=== PATIENT | male | born 1965 | race Caucasian/White ===

== ENCOUNTER 2016-09-09 18:14 | Emergency (ER) | payer MEDICARE, OTHER ==
[2016-09-09] MEDS ORDERED: SODIUM CHLORIDE 0.9% 1,000 ML IV ONE (18:28)
[2016-09-09] MEDS ORDERED: INSULIN LISPRO (humaLOG) 300 UNIT/3 ML VIAL SQ ONE ×2 (18:32→19:33)
[2016-09-09 18:35] LABS: Glucose,Whole Blood 424 mg/dL (75-99)
[2016-09-09 18:52] LABS: Appearance,Urine Clear (Clear); Basophils # (A) 0.1 k/uL (0-0.2); Basophils % (A) 1 %; Bilirubin,Urine Negative (Negative); CH 29.4; CHCM 34.7; Eosinophils # (A) 0.1 k/uL (0-0.7); Eosinophils % (A) 1 %; Glucose,Urine (UA) 4+ (Negative); HCT 48.2 % (39.0-53.0); HDW 2.49; HGB 16.4 gm/dL (13.0-17.5); Ketones,Urine Negative (Negative); Leukocyte Esterase,Urine Negative (Negative); Luc # (Auto) 0.25; Luc % (Auto) 2; Lymphocytes # (A) 2.5 k/uL (1.0-4.8); Lymphocytes % (A) 22 %; MCH 28.8 pg (25.0-35.0); MCV 84.8 fL (80.0-100.0); Mean Platelet Volume 7.5; Monocytes # (A) 0.6 k/uL (0-1.0); Monocytes % (A) 5 %; Neutrophils % (A) 69 %; Nitrite,Urine Negative (Negative); Protein,Urine Negative (Negative); RBC 5.69 m/uL (4.30-5.90); RDW 12.4 % (11.5-15.5); Specific Gravity,Urine 1.026 (1.001-1.035); UA Billing (MACRO vs. MICRO) CHEM; Urobilinogen,Urine <2.0 mg/dL (<2.0); WBC 11.5 k/uL (3.8-10.6); WBC (Perox) 10.83
[2016-09-09 19:02] LABS: ALT 37 U/L (21-72); AST 20 U/L (17-59); Alkaline Phosphatase 123 U/L (38-126); Anion Gap 14 mmol/L; Blood Urea Nitrogen 18 mg/dL (9-20); Calcium 9.4 mg/dL (8.4-10.2); Carbon Dioxide 24 mmol/L (22-30); Chloride 97 mmol/L (98-107); Glucose 418 mg/dL (74-99); Non-African American GFR(MDRD) >60 (>60 ml/min/1.73 sqM); Potassium 4.2 mmol/L (3.5-5.1); Sodium 135 mmol/L (137-145); Total Bilirubin 0.4 mg/dL (0.2-1.3); Total Protein 7.3 g/dL (6.3-8.2)
--- NOTE | 2016-09-09 19:05 | ED ---
General Adult HPI - General Chief complaint: Recheck/Abnormal Lab/Rx Stated complaint: diabetes, high BS Time Seen by Provider: 09/09/16 18:24 Source: patient, RN notes reviewed Mode of arrival: ambulatory Limitations: no limitations - History of Present Illness Initial comments: 51-year-old male presents emergency Department with chief complaint of hyperglycemia. Patient states her sugar has bowel it up to 400. Patient states that he recently had a change in his medications in which she is taking metformin twice daily and had glipizide increased. Patient denies any cold like symptoms including cough, chest congestion, fever or chills. Patient states he otherwise feels fine. Denies abdominal pain including nausea, vomiting diarrhea constipation. - Related Data Home Medications Medication Instructions Recorded Confirmed Enalapril [Vasotec] 10 mg PO HS 11/17/14 09/09/16 Gabapentin [Neurontin] 300 mg PO TID 11/17/14 09/09/16 metFORMIN HCL [Glucophage] 500 mg PO TID 11/17/14 09/09/16 Glimepiride [Amaryl] 4 mg PO BID 09/09/16 09/09/16 HYDROcodone/APAP 5-325MG [[place] 1 tab PO Q8H PRN 09/09/16 09/09/16 5-325] OLANZapine/FLUOXETINE HCL [Symbyax 1 cap PO HS 09/09/16 09/09/16 12-50 mg Capsule] Omeprazole 20 mg PO BID 09/09/16 09/09/16 rOPINIRole HCL [Requip] 1 mg PO HS 09/09/16 09/09/16 sitaGLIPtin [Januvia] 50 mg PO DAILY 09/09/16 09/09/16 Allergies Allergy/AdvReac Type Severity Reaction Status Date / Time No Known Allergies Allergy Verified 09/09/16 18:21 Review of Systems ROS Statement: Those systems with pertinent positive or pertinent negative responses have been documented in the HPI. ROS Other: All systems not noted in ROS Statement are negative. Past Medical History Past Medical History: Diabetes Mellitus, Hearing Disorder / Deafness, Osteoarthritis (OA) Additional Past Medical History / Comment(s): KIDNEY STONES History of Any Multi-Drug Resistant Organisms: None Reported Past Surgical History: Tonsillectomy Past Anesthesia/Blood Transfusion Reactions: No Reported Reaction Past Psychological History: Bipolar Smoking Status: Former smoker Past Alcohol Use History: None Reported Additional Past Alcohol Use History / Comment(s): STARTED SMOKING AT AGE 16 QUIT AT AGE 26 SMOKED 1/2 PPD Past Drug Use History: None Reported - Past Family History Mother Family Medical History: Cancer Father Family Medical History: Cancer Additional Family Medical History / Comment(s): LUNG CANCER General Exam Limitations: no limitations General appearance: alert, in no apparent distress Head exam: Present: atraumatic, normocephalic, normal inspection Eye exam: Present: normal appearance, PERRL, EOMI. Absent: scleral icterus, conjunctival injection, periorbital swelling ENT exam: Present: normal exam, normal oropharynx, mucous membranes moist, TM's normal bilaterally, normal external ear exam Neck exam: Present: normal inspection, full ROM. Absent: tenderness, meningismus, lymphadenopathy Respiratory exam: Present: normal lung sounds bilaterally. Absent: respiratory distress, wheezes, rales, rhonchi, stridor Cardiovascular Exam: Present: normal rhythm, tachycardia, normal heart sounds. Absent: systolic murmur, diastolic murmur, rubs, gallop, clicks GI/Abdominal exam: Present: soft, normal bowel sounds. Absent: distended, tenderness, guarding, rebound, rigid Neurological exam: Present: alert, oriented X3, CN II-XII intact Course Vital Signs 09/09/16 09/09/16 18:21 19:09 Temperature 99.2 F Pulse Rate 119 H 99 Respiratory 18 20 Rate Blood Pressure 146/90 159/93 O2 Sat by Pulse 95 96 Oximetry Medical Decision Making - Medical Decision Making 51-year-old male presents emergency department for hyperglycemia. Patient was found to have a glucose of over 400. Patient was given some insulin here in emergency department which brought it down to 300s. Patient is requesting be discharged at this time. Patient does not take his medications and nighttime from a 3-4 hours. Patient was given insulin subcu prior to discharge. Patient checked blood sugar at home. Return parameters discussed. Facial follow-up with primary care physician for further medications for his diabetes. - Lab Data Result diagrams: 09/09/16 18:30 09/09/16 18:30 Lab Results 09/09/16 09/09/16 09/09/16 Range/Units 18:29 18:30 18:30 WBC 11.5 H (3.8-10.6) k/uL RBC 5.69 (4.30-5.90) m/uL Hgb 16.4 (13.0-17.5) gm/dL Hct 48.2 (39.0-53.0) % MCV 84.8 (80.0-100.0) fL MCH 28.8 (25.0-35.0) pg MCHC 34.0 (31.0-37.0) g/dL RDW 12.4 (11.5-15.5) % Plt Count 352 (150-450) k/uL Neutrophils % 69 % Lymphocytes % 22 % Monocytes % 5 % Eosinophils % 1 % Basophils % 1 % Neutrophils # 8.0 H (1.3-7.7) k/uL Lymphocytes # 2.5 (1.0-4.8) k/uL Monocytes # 0.6 (0-1.0) k/uL Eosinophils # 0.1 (0-0.7) k/uL Basophils # 0.1 (0-0.2) k/uL Sodium 135 L (137-145) mmol/L Potassium 4.2 (3.5-5.1) mmol/L Chloride 97 L (98-107) mmol/L Carbon Dioxide 24 (22-30) mmol/L Anion Gap 14 mmol/L BUN 18 (9-20) mg/dL Creatinine 0.90 (0.66-1.25) mg/dL Est GFR (MDRD) Af Amer >60 (>60 ml/min/1.73 sqM) Est GFR (MDRD) Non-Af >60 (>60 ml/min/1.73 sqM) Glucose 418 H (74-99) mg/dL POC Glucose (mg/dL) 424 H (75-99) mg/dL POC Glu Machine Load Clerk ID Rob Soriano Calcium 9.4 (8.4-10.2) mg/dL Total Bilirubin 0.4 (0.2-1.3) mg/dL AST 20 (17-59) U/L ALT 37 (21-72) U/L Alkaline Phosphatase 123 (38-126) U/L Total Protein 7.3 (6.3-8.2) g/dL Albumin 4.2 (3.5-5.0) g/dL Urine Color Urine Appearance (Clear) Urine pH (5.0-8.0) Ur Specific [place] (1.001-1.035) Urine Protein (Negative) Urine Glucose (UA) (Negative) Urine Ketones (Negative) Urine Blood (Negative) Urine Nitrate (Negative) Urine Bilirubin (Negative) Urine Urobilinogen (<2.0) mg/dL Ur Leukocyte Esterase (Negative) Acetone, Qual Negative (Negative) 09/09/16 Range/Units 18:30 WBC (3.8-10.6) k/uL RBC (4.30-5.90) m/uL Hgb (13.0-17.5) gm/dL Hct (39.0-53.0) % MCV (80.0-100.0) fL MCH (25.0-35.0) pg MCHC (31.0-37.0) g/dL RDW (11.5-15.5) % Plt Count (150-450) k/uL Neutrophils % % Lymphocytes % % Monocytes % % Eosinophils % % Basophils % % Neutrophils # (1.3-7.7) k/uL Lymphocytes # (1.0-4.8) k/uL Monocytes # (0-1.0) k/uL Eosinophils # (0-0.7) k/uL Basophils # (0-0.2) k/uL Sodium (137-145) mmol/L Potassium (3.5-5.1) mmol/L Chloride (98-107) mmol/L Carbon Dioxide (22-30) mmol/L Anion Gap mmol/L BUN (9-20) mg/dL Creatinine (0.66-1.25) mg/dL Est GFR (MDRD) Af Amer (>60 ml/min/1.73 sqM) Est GFR (MDRD) Non-Af (>60 ml/min/1.73 sqM) Glucose (74-99) mg/dL POC Glucose (mg/dL) (75-99) mg/dL POC Glu Machine Load Clerk ID Calcium (8.4-10.2) mg/dL Total Bilirubin (0.2-1.3) mg/dL AST (17-59) U/L ALT (21-72) U/L Alkaline Phosphatase (38-126) U/L Total Protein (6.3-8.2) g/dL Albumin (3.5-5.0) g/dL Urine Color Light Yellow Urine Appearance Clear (Clear) Urine pH 5.0 (5.0-8.0) Ur Specific [place] 1.026 (1.001-1.035) Urine Protein Negative (Negative) Urine Glucose (UA) 4+ H (Negative) Urine Ketones Negative (Negative) Urine Blood Negative (Negative) Urine Nitrate Negative (Negative) Urine Bilirubin Negative (Negative) Urine Urobilinogen <2.0 (<2.0) mg/dL Ur Leukocyte Esterase Negative (Negative) Acetone, Qual (Negative) Disposition Clinical Impression: Hyperglycemia, Uncontrolled diabetes mellitus Disposition: HOME SELF-CARE Condition: Stable Instructions: Hyperglycemia, Non-Diabetic (ED) Additional Instructions: Please return to the Emergency Department if symptoms worsen or any other concerns. Time of Disposition: 19:34
[2016-09-09 19:10] VITALS: RESP 20
[2016-09-09 19:35] LABS: Glucose,Whole Blood 316 mg/dL (75-99)
[2016-09-09 19:46] VITALS: BP 148/68; PULSE 98; TEMP 98.3
== END 2016-09-09 19:45 | disposition home or self-care (01) ==
LOC: EC 18:14
DX: E11.65 Type 2 diabetes mellitus with hyperglycemia (principal); Z79.84 Long term (current) use of oral hypoglycemic drugs; Z79.899 Other long term (current) drug therapy; H91.90 Unspecified hearing loss, unspecified ear; Z87.891 Personal history of nicotine dependence
CPT/HCPCS: 36415; 80053; 81003; 82009; 85025; 96374; 99284

== ENCOUNTER 2016-12-08 18:48 | Emergency (ER) | payer MEDICARE, OTHER ==
[2016-12-08 18:54] VITALS: BP 130/84; PULSE 111; RESP 20; TEMP 97.8
[2016-12-08] MEDS ORDERED: DIPH,PERTUS(ACELL)TETVAC-LF 0.5 ML VIAL IM ONE (19:02)
[2016-12-08] MEDS ORDERED: GELATIN SPONGE,ABSORB (SMALL) 1 EACH SPONGE TOPICAL STA (19:02)
--- NOTE | 2016-12-08 19:17 | ED ---
General Adult HPI - General Chief complaint: Wound/Laceration Stated complaint: laceration on left arm Time Seen by Provider: 12/08/16 18:56 Source: patient, RN notes reviewed Mode of arrival: ambulatory Limitations: no limitations - History of Present Illness Initial comments: Patient is a 51-year-old male who presents emergency room today with a chief complaint of laceration to the posterior aspect of the left forearm. He does admit that he was opening a glass window and it broke large piece cut the back of his forearm. Patient states unsure of his tetanus status. He denies any other complaints or symptoms. - Related Data Home Medications Medication Instructions Recorded Confirmed Enalapril [Vasotec] 10 mg PO HS 11/17/14 12/08/16 Gabapentin [Neurontin] 300 mg PO TID 11/17/14 12/08/16 metFORMIN HCL [Glucophage] 500 mg PO TID 11/17/14 12/08/16 Glimepiride [Amaryl] 4 mg PO BID 09/09/16 12/08/16 HYDROcodone/APAP 5-325MG [[place] 1 tab PO Q8H PRN 09/09/16 12/08/16 5-325] OLANZapine/FLUOXETINE HCL [Symbyax 1 cap PO HS 09/09/16 12/08/16 12-50 mg Capsule] Omeprazole 20 mg PO BID 09/09/16 12/08/16 rOPINIRole HCL [Requip] 1 mg PO HS 09/09/16 12/08/16 sitaGLIPtin [Januvia] 50 mg PO DAILY 09/09/16 12/08/16 Previous Rx's Medication Instructions Recorded Cephalexin [Keflex] 500 mg PO Q12HR 7 Days 12/08/16 Mupirocin 2% Oint [Bactroban Oint] 1 applic TOPICAL TID #1 gm 12/08/16 Allergies Allergy/AdvReac Type Severity Reaction Status Date / Time No Known Allergies Allergy Verified 12/08/16 18:54 Review of Systems ROS Statement: Those systems with pertinent positive or pertinent negative responses have been documented in the HPI. ROS Other: All systems not noted in ROS Statement are negative. Past Medical History Past Medical History: Diabetes Mellitus, Hearing Disorder / Deafness, Osteoarthritis (OA) Additional Past Medical History / Comment(s): KIDNEY STONES History of Any Multi-Drug Resistant Organisms: None Reported Past Surgical History: Tonsillectomy Past Anesthesia/Blood Transfusion Reactions: No Reported Reaction Past Psychological History: Bipolar Smoking Status: Former smoker Past Alcohol Use History: None Reported Additional Past Alcohol Use History / Comment(s): STARTED SMOKING AT AGE 16 QUIT AT AGE 26 SMOKED 1/2 PPD Past Drug Use History: None Reported - Past Family History Mother Family Medical History: Cancer Father Family Medical History: Cancer Additional Family Medical History / Comment(s): LUNG CANCER General Exam - General Exam Comments Initial Comments: General: The patient is awake and alert, in no distress, and does not appear acutely ill. Neck: The neck is supple, there is no tenderness or JVD. Cardiovascular: There is a regular rate and rhythm. No murmur, rub or gallop is appreciated. Respiratory: Lungs are clear to auscultation, respirations are non-labored, breath sounds are equal. No wheezes, stridor, rales, or rhonchi. Musculoskeletal: Full range motion. Sensation intact. Pulses equal bilaterally 2+. Strength 5/5. Neurological: A&O x 3. CN II-XII intact, There are no obvious motor or sensory deficits. Coordination appears grossly intact. Speech is normal. Skin: Does have an avulsion type laceration to the posterior aspect of the left forearm measures approximately 2 cm across. There is a superficial flap of skin that is curled up at the edge. Psychiatric: Normal mood and affect. Limitations: no limitations Course Vital Signs 12/08/16 18:52 Temperature 97.8 F Pulse Rate 111 H Respiratory 20 Rate Blood Pressure 130/84 O2 Sat by Pulse 95 Oximetry Procedures - Procedures Initial comment: Patient's wound was cleaned here with saline. The wound is superficial avulsion type laceration. The skin was removed and patient Gelfoam was placed over top control the bleeding. Nonstick dressing was applied by myself with a sterile dressing around. Patient tolerated procedure well. Medical Decision Making - Medical Decision Making Patient is advised to change dressing at least once daily apply topical antibiotic ointment. He'll be started on antibiotics as she is a diabetic. Advised watch for any signs of infection return for any other concerns. His tetanus is been updated here in the emergency room. Disposition Clinical Impression: Laceration Disposition: HOME SELF-CARE Condition: Good Instructions: Laceration (ED) Additional Instructions: Please change dressing at least once daily or as needed. Please use topical antibiotic to the area. Please use antibiotic as prescribed and return here to emergency room if there is any sign of infection or for any other concerns. Prescriptions: Cephalexin [Keflex] 500 mg PO Q12HR 7 Days Mupirocin 2% Oint [Bactroban Oint] 1 applic TOPICAL TID #1 gm Referrals: Oseas Veras MD [Primary Care Provider] - 1-2 days Time of Disposition: 19:16
== END 2016-12-08 19:45 | disposition home or self-care (01) ==
LOC: EC 18:48
DX: S51.812A Laceration without foreign body of left forearm, initial encounter (principal); Z23 Encounter for immunization; E11.9 Type 2 diabetes mellitus without complications; M19.90 Unspecified osteoarthritis, unspecified site; F31.9 Bipolar disorder, unspecified; H91.90 Unspecified hearing loss, unspecified ear; Z87.891 Personal history of nicotine dependence; Z79.84 Long term (current) use of oral hypoglycemic drugs; Z79.899 Other long term (current) drug therapy; W25.XXXA Contact with sharp glass, initial encounter
CPT/HCPCS: 90471; 90715; 99282

== ENCOUNTER → 2017-03-14 | Outpatient (CLI) | payer MEDICARE, OTHER ==
--- NOTE | 2017-03-15 09:12 | XR ---
EXAMINATION TYPE: XR foot complete bilateral DATE OF EXAM: 03/14/2017 COMPARISON: NONE HISTORY: Pain TECHNIQUE: Three views are submitted. FINDINGS: The osseous structures are intact and marked narrowing the first MTP joint with mild hypertrophic bennie nge is seen. Finding appears to be symmetric and bilateral. IMPRESSION: 1. Bilateral first MTP arthropathy.
== END | disposition home or self-care (01) ==
LOC: RADXRMAIN 15:50
PROVIDERS: ATTEND Internal Medicine
DX: M12.872 Other specific arthropathies, not elsewhere classified, left ankle and foot (principal); M12.871 Other specific arthropathies, not elsewhere classified, right ankle and foot

== ENCOUNTER 2017-07-24 00:38 | Emergency (ER) | payer MEDICARE, OTHER ==
[2017-07-24] MEDS ORDERED: ONDANSETRON 4 MG/2 ML VIAL ONE ×2 (02:00)
[2017-07-24] MEDS ORDERED: ACET/COD 300 MG/30 MG STARTER PACK 6 TAB BTL PO ONE (02:00)
[2017-07-24] MEDS ORDERED: ONDANSETRON 4 MG ODT STARTER PACK 2 TAB BTL ONE (02:00)
[2017-07-24] MEDS ORDERED: HYDROmorphone 0.5 MG/0.5 ML SYRINGE ONE (02:00)
[2017-07-24] MEDS ORDERED: KETOROLAC 30 MG/ML 1 ML VIAL ONE (02:00)
[2017-07-24] MEDS ORDERED: SODIUM CHLORIDE 0.9% 1,000 ML BAG ONE (04:00)
[2017-07-24] MEDS ORDERED: SODIUM CHLORIDE 0.9% 500 ML BAG ONE (04:00)
[2017-07-24 05:27] LABS: ALT 35 U/L (21-72); AST 20 U/L (17-59); Albumin 4.2 g/dL (3.5-5.0); Alkaline Phosphatase 137 U/L (38-126); Amylase 76 U/L (30-110); Anion Gap 13 mmol/L; Blood Urea Nitrogen 24 mg/dL (9-20); Calcium 9.2 mg/dL (8.4-10.2); Carbon Dioxide 24 mmol/L (22-30); Chloride 100 mmol/L (98-107); Glucose 270 mg/dL (74-99); Lipase 197 U/L (23-300); Potassium 4.4 mmol/L (3.5-5.1); Sodium 137 mmol/L (137-145); Total Bilirubin 0.5 mg/dL (0.2-1.3); Total Protein 6.9 g/dL (6.3-8.2)
[2017-07-24 05:37] LABS: Basophils # (A) 0.1 k/uL (0-0.2); Basophils % (A) 0 %; Eosinophils # (A) 0.1 k/uL (0-0.7); Eosinophils % (A) 1 %; HCT 48.9 % (39.0-53.0); HGB 16.9 gm/dL (13.0-17.5); Lymphocytes # (A) 1.8 k/uL (1.0-4.8); Lymphocytes % (A) 10 %; MCHC 34.5 g/dL (31.0-37.0); MCV 84.1 fL (80.0-100.0); Mean Platelet Volume 7.3; Monocytes # (A) 0.9 k/uL (0-1.0); Monocytes % (A) 5 %; Neutrophils # (A) 15.1 k/uL (1.3-7.7); Neutrophils % (A) 84 %; Platelet Count 354 k/uL (150-450); RBC 5.82 m/uL (4.30-5.90); RDW 12.5 % (11.5-15.5)
[2017-07-24 05:42] LABS: Amorphous Sediment,Urine Rare /hpf; Appearance,Urine Cloudy (Clear); Bacteria,Urine Rare /hpf; Bilirubin,Urine Negative (Negative); Blood,Urine Negative (Negative); Color,Urine Yellow; Glucose,Urine (UA) 4+ (Negative); Hyaline Casts,Urine 7 /lpf (0-2); Ketones,Urine Trace (Negative); Leukocyte Esterase,Urine Negative (Negative); Mucus,Urine Few /hpf; Nitrite,Urine Negative (Negative); PH, Urine 5.5 (5.0-8.0); Protein,Urine 1+ (Negative); RBC,Urine 2 /hpf (0-5); Specific Gravity,Urine 1.032 (1.001-1.035); Squamous Epithelial Cell,Urine 1 /hpf (0-4); Urobilinogen,Urine <2.0 mg/dL (<2.0); WBC,Urine 2 /hpf (0-5)
--- NOTE | 2017-07-24 06:14 | CT ---
EXAM: CT Abdomen and Pelvis With Intravenous Contrast CLINICAL HISTORY: Right flank pain, TECHNIQUE: Axial computed tomography images of the abdomen and pelvis with intravenous contrast. DLP is 2562.30 mGy-cm. This CT exam was performed using one or more of the following dose reduction techniques: automated exposure control, adjustment of the mA and/or kV according to patient size, and/or use of iterative reconstruction technique. COMPARISON: No relevant prior studies available. FINDINGS: Lower thorax: No acute findings. ABDOMEN: Liver: Unremarkable. No mass. Gallbladder and bile ducts: Unremarkable. No calcified stones. No ductal dilation. Pancreas: Unremarkable. No mass. No ductal dilation. Spleen: Unremarkable. No splenomegaly. Adrenals: Unremarkable. No mass. Kidneys and ureters: 2.7 cm cyst in the upper pole of the right kidney. 4 mm nonobstructive calculus in the midpole of the right kidney. 1 cm nonobstructive calculus in the upper pole of the left kidney. 4 mm nonobstructive calculus in the lower pole of the left kidney. No hydronephrosis in either kidney. Stomach and bowel: Colonic fecal stasis. No obstruction. No mucosal thickening. Appendix: No findings to suggest acute appendicitis. PELVIS: Bladder: Unremarkable. No mass. Reproductive: Unremarkable as visualized. ABDOMEN and PELVIS: Intraperitoneal space: Unremarkable. No free air. No significant fluid collection. Bones/joints: Spondylotic change at L5-S1. No acute fracture. No dislocation. Soft tissues: Unremarkable. Vasculature: Unremarkable. No abdominal aortic aneurysm. Lymph nodes: Unremarkable. No enlarged lymph nodes. IMPRESSION: 1. No evidence of hydronephrosis. Multiple nonobstructive nephroliths seen in both kidneys as above. 2. Colonic fecal stasis.
== END 2017-07-24 04:54 | disposition home or self-care (01) ==
LOC: EC 00:38
DX: R10.31 Right lower quadrant pain (principal); R11.10 Vomiting, unspecified; N20.0 Calculus of kidney; D72.829 Elevated white blood cell count, unspecified; K59.8 Other specified functional intestinal disorders; R63.0 Anorexia
CPT/HCPCS: 36415; 80053; 82150; 83690; 85025; 81001; 74177; 99284; 96374; 96375; 96361; Q9967; J2405; J1885; S0119; J1170

== ENCOUNTER → 2019-05-04 | Outpatient (CLI) | payer MEDICARE, OTHER ==
[2019-05-04 21:28] LABS: Hemoglobin A1C 7.9 % (4.0-6.0)
== END | disposition home or self-care (01) ==
LOC: LABWHC1 11:46
PROVIDERS: ATTEND Internal Medicine
DX: E11.9 Type 2 diabetes mellitus without complications (principal)
CPT/HCPCS: 36415; 83036

== ENCOUNTER → 2019-09-22 | Outpatient (CLI) | payer MEDICARE, OTHER ==
[2019-09-22 16:07] LABS: African American GFR (CKD) 99.1 (60.0-200.0); Anion Gap 10.5 mmol/L (4.00-12.00); Calcium 9.3 mg/dL (8.7-10.3); Carbon Dioxide 25.5 mmol/L (21.6-31.8); Non-African American GFR(CKD) 85.5 (60.0-200.0); Potassium 4.4 mmol/L (3.5-5.5)
[2019-09-22 18:23] LABS: Hemoglobin A1C 10.7 % (4.0-6.0)
== END | disposition home or self-care (01) ==
LOC: LABWHC1 09:10
PROVIDERS: ATTEND Internal Medicine
DX: E11.9 Type 2 diabetes mellitus without complications (principal)
CPT/HCPCS: 36415; 80048; 83036

== ENCOUNTER 2019-11-28 14:49 | Emergency (ER) | payer MEDICARE, OTHER ==
[2019-11-28] MEDS ORDERED: SODIUM CHLORIDE 0.9% 1,000 ML IV STA (15:12)
[2019-11-28] MEDS ORDERED: KETOROLAC 30 MG/ML 1 ML VIAL IVP STA (15:12)
[2019-11-28] MEDS ORDERED: ONDANSETRON 4 MG/2 ML VIAL IVP STA (15:12)
--- NOTE | 2019-11-28 15:16 | ED ---
Abdominal Pain HPI - General Source: patient Mode of arrival: ambulatory Limitations: no limitations <Brielle Gentile - Last Filed: 11/29/19 00:36> <Padmini Lemon - Last Filed: 12/02/19 11:53> - General Chief Complaint: Abdominal Pain Stated Complaint: Abd pain Time Seen by Provider: 11/28/19 14:59 - History of Present Illness Initial Comments: Patient is a 54-year-old male presenting to the emergency Department with complaints of abdominal pain and nausea 2 days. Patient states the pain is located in the lower abdominal region, both on left and right side. He states the pain has been getting worse. He is also been nauseous and having a few episodes of vomiting. Patient states he did have a very small bowel movement yesterday which was very loose. No bowel movement today. 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 He denies any previous history of abdominal surgeries. He denies any chest pain, shortness of breath, fever, chills, urinary complaints. He states he has never had this kind of pain before. He denies history of blood clots, denies being on a blood thinner. Denies recent antibiotics. He rates the pain 8/10. He has no further complaints. (Brielle Gentile) - Related Data Home Medications Medication Instructions Recorded Confirmed Enalapril [Vasotec] 10 mg PO HS 11/17/14 12/08/16 Gabapentin [Neurontin] 300 mg PO TID 11/17/14 12/08/16 metFORMIN HCL [Glucophage] 500 mg PO TID 11/17/14 12/08/16 Glimepiride [Amaryl] 4 mg PO BID 09/09/16 12/08/16 HYDROcodone/APAP 5-325MG [Nenana 1 tab PO Q8H PRN 09/09/16 12/08/16 5-325] OLANZapine/FLUOXETINE HCL [Symbyax 1 cap PO HS 09/09/16 12/08/16 12-50 mg Capsule] Omeprazole 20 mg PO BID 09/09/16 12/08/16 rOPINIRole HCL [Requip] 1 mg PO HS 09/09/16 12/08/16 sitaGLIPtin [Januvia] 50 mg PO DAILY 09/09/16 12/08/16 Previous Rx's Medication Instructions Recorded Cephalexin [Keflex] 500 mg PO Q12HR 7 Days cap 12/08/16 Mupirocin 2% Oint [Bactroban Oint] 1 applic TOPICAL TID #1 gm 12/08/16 Ondansetron Odt [Zofran Odt] 4 mg PO Q8HR PRN #10 tab 11/28/19 Allergies Allergy/AdvReac Type Severity Reaction Status Date / Time No Known Allergies Allergy Verified 11/28/19 14:54 Review of Systems ROS Other: All systems not noted in ROS Statement are negative. <Brielle Gentile - Last Filed: 11/29/19 00:36> ROS Other: All systems not noted in ROS Statement are negative. <Padmini Lemon - Last Filed: 12/02/19 11:53> ROS Statement: Those systems with pertinent positive or pertinent negative responses have been documented in the HPI. Past Medical History Past Medical History: Diabetes Mellitus, Hearing Disorder / Deafness, Osteoarthritis (OA) Additional Past Medical History / Comment(s): KIDNEY STONES History of Any Multi-Drug Resistant Organisms: None Reported Past Surgical History: Tonsillectomy Past Anesthesia/Blood Transfusion Reactions: No Reported Reaction Past Psychological History: Bipolar Smoking Status: Former smoker Past Alcohol Use History: None Reported Past Drug Use History: None Reported - Past Family History Mother Family Medical History: Cancer Father Family Medical History: Cancer Additional Family Medical History / Comment(s): LUNG CANCER <Brielle Gentile - Last Filed: 11/29/19 00:36> General Exam Limitations: no limitations <Brielle Gentile - Last Filed: 11/29/19 00:36> - General Exam Comments Initial Comments: GENERAL: Well-appearing, well-nourished and in no acute distress. HEAD: Atraumatic, normocephalic. EYES: Pupils equal round and reactive to light, extraocular movements intact, sclera anicteric, conjunctiva are normal. ENT: TMs normal, nares patent, oropharynx clear without exudates. Moist mucous membranes. NECK: Normal range of motion, supple without lymphadenopathy or JVD. LUNGS: Breath sounds clear to auscultation bilaterally and equal. No wheezes rales or rhonchi. HEART: Regular rate and rhythm without murmurs, rubs or gallops. ABDOMEN: Tender to palpation in the entire lower abdomen, near umbilical area as well. Soft, normoactive bowel sounds. No guarding, no rebound. No masses appreciated. : Deferred EXTREMITIES: Normal range of motion, no pitting or edema. No clubbing or cyanosis. NEUROLOGICAL: Cranial nerves II through XII grossly intact. Normal speech, normal gait. PSYCH: Normal mood, normal affect. SKIN: Warm, Dry, normal turgor, no rashes or lesions noted. (Brielle Gentile) Course Vital Signs 11/28/19 11/28/19 14:51 17:54 Temperature 98.6 F 98.4 F Pulse Rate 97 76 Respiratory 18 20 Rate Blood Pressure 142/98 129/80 O2 Sat by Pulse 98 95 Oximetry Medical Decision Making - Lab Data Result diagrams: 11/28/19 15:30 11/28/19 15:30 <Brielle Gentile - Last Filed: 11/29/19 00:36> - Lab Data Result diagrams: 11/28/19 15:30 11/28/19 15:30 <Padmini Lemon - Last Filed: 12/02/19 11:53> - Medical Decision Making Patient is a 54-year-old male here for lower abdominal pain and nausea vomiting 2 days. Vitals are stable upon arrival. Lab work reveals slight leukocytosis at 12.3, lactic acid is normal. Computed tomography scan of the abdomen shows no acute abnormalities. Patient was given fluids, Zofran, and analgesics. He reports improvement in his symptoms. I discussed the patient and his symptoms are most likely related to gastroenteritis. He'll be sent home with Zofran as needed for nausea. He will follow up with his PCP. He stable for discharge and patient is in agreement with this plan of care. Return parameters were discussed with the patient and he verbalized understanding. Case discussed with Dr. Lemon. (Brielle Gentile) I was available for consultation in the emergency department. The history and physical exam were done by the midlevel provider. [facility] I reviewed the case with the midlevel provider and based on their presentation of the patient, I agree with the assessment, medical decision making and plan of care as documented. Chart was dictated using 3scale dictation software. Attempts were made to correct any dictation errors however some typographical errors may persist. Patient was seen during a national state of emergency due to the Covid-19 pandemic. (Padmini Lemon) - Lab Data Lab Results 11/28/19 11/28/19 11/28/19 Range/Units 15:30 15:30 15:30 WBC 12.3 H (3.8-10.6) k/uL RBC 5.48 (4.30-5.90) m/uL Hgb 16.5 (13.0-17.5) gm/dL Hct 47.2 (39.0-53.0) % MCV 86.1 (80.0-100.0) fL MCH 30.0 (25.0-35.0) pg MCHC 34.9 (31.0-37.0) g/dL RDW 12.4 (11.5-15.5) % Plt Count 318 (150-450) k/uL Neutrophils % 78 % Lymphocytes % 16 % Monocytes % 4 % Eosinophils % 0 % Basophils % 1 % Neutrophils # 9.6 H (1.3-7.7) k/uL Lymphocytes # 1.9 (1.0-4.8) k/uL Monocytes # 0.5 (0-1.0) k/uL Eosinophils # 0.1 (0-0.7) k/uL Basophils # 0.1 (0-0.2) k/uL PT 10.3 (9.0-12.0) sec INR 1.0 (<1.2) APTT 23.6 (22.0-30.0) sec Sodium (137-145) mmol/L Potassium (3.5-5.1) mmol/L Chloride (98-107) mmol/L Carbon Dioxide (22-30) mmol/L Anion Gap mmol/L BUN (9-20) mg/dL Creatinine (0.66-1.25) mg/dL Est GFR (CKD-EPI)AfAm (>60 ml/min/1.73 sqM) Est GFR (CKD-EPI)NonAf (>60 ml/min/1.73 sqM) Glucose (74-99) mg/dL Plasma Lactic Acid Grady (0.7-2.0) mmol/L Calcium (8.4-10.2) mg/dL Total Bilirubin (0.2-1.3) mg/dL AST (17-59) U/L ALT (4-49) U/L Alkaline Phosphatase (38-126) U/L Total Protein (6.3-8.2) g/dL Albumin (3.5-5.0) g/dL Amylase (30-110) U/L Lipase (23-300) U/L Urine Color Yellow Urine Appearance Turbid (Clear) Urine pH 6.0 (5.0-8.0) Ur Specific [place] 1.030 (1.001-1.035) Urine Protein 2+ H (Negative) Urine Glucose (UA) 3+ H (Negative) Urine Ketones Trace H (Negative) Urine Blood Negative (Negative) Urine Nitrite Negative (Negative) Urine Bilirubin Negative (Negative) Urine Urobilinogen 2.0 (<2.0) mg/dL Ur Leukocyte Esterase Negative (Negative) Urine RBC 4 (0-5) /hpf Amorphous Sediment Rare H (None) /hpf Urine Bacteria Many H (None) /hpf Urine Mucus Many H (None) /hpf 11/28/19 11/28/19 Range/Units 15:30 15:30 WBC (3.8-10.6) k/uL RBC (4.30-5.90) m/uL Hgb (13.0-17.5) gm/dL Hct (39.0-53.0) % MCV (80.0-100.0) fL MCH (25.0-35.0) pg MCHC (31.0-37.0) g/dL RDW (11.5-15.5) % Plt Count (150-450) k/uL Neutrophils % % Lymphocytes % % Monocytes % % Eosinophils % % Basophils % % Neutrophils # (1.3-7.7) k/uL Lymphocytes # (1.0-4.8) k/uL Monocytes # (0-1.0) k/uL Eosinophils # (0-0.7) k/uL Basophils # (0-0.2) k/uL PT (9.0-12.0) sec INR (<1.2) APTT (22.0-30.0) sec Sodium 135 L (137-145) mmol/L Potassium 4.0 (3.5-5.1) mmol/L Chloride 100 (98-107) mmol/L Carbon Dioxide 26 (22-30) mmol/L Anion Gap 9 mmol/L BUN 16 (9-20) mg/dL Creatinine 0.77 (0.66-1.25) mg/dL Est GFR (CKD-EPI)AfAm >90 (>60 ml/min/1.73 sqM) Est GFR (CKD-EPI)NonAf >90 (>60 ml/min/1.73 sqM) Glucose 228 H (74-99) mg/dL Plasma Lactic Acid Grady 1.3 (0.7-2.0) mmol/L Calcium 9.7 (8.4-10.2) mg/dL Total Bilirubin 0.6 (0.2-1.3) mg/dL AST 22 (17-59) U/L ALT 25 (4-49) U/L Alkaline Phosphatase 127 H (38-126) U/L Total Protein 7.4 (6.3-8.2) g/dL Albumin 4.3 (3.5-5.0) g/dL Amylase 43 (30-110) U/L Lipase 116 (23-300) U/L Urine Color Urine Appearance (Clear) Urine pH (5.0-8.0) Ur Specific [place] (1.001-1.035) Urine Protein (Negative) Urine Glucose (UA) (Negative) Urine Ketones (Negative) Urine Blood (Negative) Urine Nitrite (Negative) Urine Bilirubin (Negative) Urine Urobilinogen (<2.0) mg/dL Ur Leukocyte Esterase (Negative) Urine RBC (0-5) /hpf Amorphous Sediment (None) /hpf Urine Bacteria (None) /hpf Urine Mucus (None) /hpf Disposition Is patient prescribed a controlled substance at d/c from ED?: No <Brielle Gentile - Last Filed: 11/29/19 00:36> <Padmini Lemon - Last Filed: 12/02/19 11:53> Clinical Impression: Abdominal pain, Nausea & vomiting, Gastroenteritis Disposition: HOME SELF-CARE Condition: Stable Instructions (If sedation given, give patient instructions): Abdominal Pain (ED) Additional Instructions: Please return to the Emergency Department if symptoms worsen or any other concerns. Take Zofran as needed for nausea. Follow-up with PCP. Prescriptions: Ondansetron Odt [Zofran Odt] 4 mg PO Q8HR PRN #10 tab PRN Reason: Nausea Referrals: Oseas Veras MD [Primary Care Provider] - 1-2 days
[2019-11-28 16:01] LABS: Basophils # (A) 0.1 k/uL (0-0.2); Basophils % (A) 1 %; Eosinophils # (A) 0.1 k/uL (0-0.7); Eosinophils % (A) 0 %; HCT 47.2 % (39.0-53.0); HGB 16.5 gm/dL (13.0-17.5); Lymphocytes # (A) 1.9 k/uL (1.0-4.8); Lymphocytes % (A) 16 %; MCHC 34.9 g/dL (31.0-37.0); MCV 86.1 fL (80.0-100.0); Mean Platelet Volume 7.2; Monocytes # (A) 0.5 k/uL (0-1.0); Monocytes % (A) 4 %; Neutrophils # (A) 9.6 k/uL (1.3-7.7); Neutrophils % (A) 78 %; Platelet Count 318 k/uL (150-450); RBC 5.48 m/uL (4.30-5.90); RDW 12.4 % (11.5-15.5); WBC 12.3 k/uL (3.8-10.6)
[2019-11-28 16:06] LABS: Amorphous Sediment,Urine Rare /hpf; Appearance,Urine Turbid (Clear); Bacteria,Urine Many /hpf; Bilirubin,Urine Negative (Negative); Blood,Urine Negative (Negative); Color,Urine Yellow; Glucose,Urine (UA) 3+ (Negative); Ketones,Urine Trace (Negative); Leukocyte Esterase,Urine Negative (Negative); Mucus,Urine Many /hpf; Nitrite,Urine Negative (Negative); Protein,Urine 2+ (Negative); RBC,Urine 4 /hpf (0-5)
[2019-11-28 16:09] LABS: Partial Thromboplastin Time 23.6 sec (22.0-30.0); Prothrombin Time 10.3 sec (9.0-12.0)
[2019-11-28 16:26] LABS: ALT 25 U/L (4-49); AST 22 U/L (17-59); African American GFR (CKD) >90 (>60 ml/min/1.73 sqM); Albumin 4.3 g/dL (3.5-5.0); Alkaline Phosphatase 127 U/L (38-126); Amylase 43 U/L (30-110); Anion Gap 9 mmol/L; Blood Urea Nitrogen 16 mg/dL (9-20); Calcium 9.7 mg/dL (8.4-10.2); Carbon Dioxide 26 mmol/L (22-30); Chloride 100 mmol/L (98-107); Glucose 228 mg/dL (74-99); Non-African American GFR(CKD) >90 (>60 ml/min/1.73 sqM); Sodium 135 mmol/L (137-145); Total Bilirubin 0.6 mg/dL (0.2-1.3); Total Protein 7.4 g/dL (6.3-8.2)
--- NOTE | 2019-11-28 17:33 | CT ---
EXAMINATION TYPE: CT abdomen pelvis w con DATE OF EXAM: 11/28/2019 COMPARISON: 07/24/2017 HISTORY: generalized pain with nausea for 2-[address] DLP: 2136.8 mGycm Automated exposure control for dose reduction was used. CONTRAST: Performed with IV Contrast, patient injected with 100 mL of Isovue 300. Lung bases are clear of infiltrate. There is no pleural effusion. There is no pericardial effusion. H eart appears normal. Liver spleen pancreas gallbladder appear normal. Bile ducts are not dilated. Stomach appears intact. There is no adrenal mass. There are bilateral renal calculi that measure up to 10 mm. There is no hyd ronephrosis. Ureters are not dilated. There is no retroperitoneal adenopathy. There are 1.5 cm cortic al cyst upper pole right kidney. Bladder distends smoothly. There is no inguinal hernia. There is no free fluid in the pelvis. Appendix is posterior and appears normal. There is no mesenteric edema. The re is no ascites or free air. There is no sign of a bowel obstruction. Lumbar vertebra have normal alignment. Bony pelvis is intact. There is no compression fracture. IMPRESSION: There are several nonobstructing renal calculi. No adverse change compared to old exam. No sign of ac charito abdomen and pelvis.
[2019-11-28 18:00] VITALS: BP 129/80; PULSE 76; RESP 20; TEMP 98.4
== END 2019-11-28 18:22 | disposition home or self-care (01) ==
LOC: EC 14:49
DX: K52.9 Noninfective gastroenteritis and colitis, unspecified (principal); E11.9 Type 2 diabetes mellitus without complications; H91.90 Unspecified hearing loss, unspecified ear; Z79.84 Long term (current) use of oral hypoglycemic drugs; Z79.899 Other long term (current) drug therapy; Z87.891 Personal history of nicotine dependence; Z87.442 Personal history of urinary calculi
CPT/HCPCS: 36415; 80053; 82150; 83605; 83690; 85025; 85610; 85730; 81001; 74177; 99284; 96374; 96375; 96361; J2405; J1885; Q9967

== ENCOUNTER → 2019-12-15 | Outpatient (CLI) | payer MEDICARE, OTHER ==
--- NOTE | 2019-12-15 13:32 | XR ---
KUB HISTORY: Abdominal pain and diarrhea for one month Frontal KUB on [address] scan 11/28/2019 There are 2 left-sided renal calculi as noted on CT, the larger measures approximately 10 to 11 mm at the upper pole, lower pole calculus measures approximately 3 mm. Right-sided nephrolith lithiasis no t as well seen due to overlying bowel gas. Lung bases are clear. No pneumoperitoneum or bowel obstruc tion. Scattered phleboliths are present within the pelvis. IMPRESSION: Nephrolithiasis.
== END | disposition home or self-care (01) ==
LOC: RADXRMAIN 12:02
PROVIDERS: ATTEND Internal Medicine
DX: R10.84 Generalized abdominal pain (principal); N20.0 Calculus of kidney
CPT/HCPCS: 74018

== ENCOUNTER → 2020-02-10 | Outpatient (CLI) | payer MEDICARE, OTHER ==
--- NOTE | 2020-02-10 16:06 | XR ---
EXAMINATION TYPE: XR lumbar spine 2 or 3V DATE OF EXAM: 02/10/2020 CLINICAL HISTORY: Back and neck stiffness. TECHNIQUE: Frontal and lateral COMPARISON: CT abdomen pelvis 11/28/2019. FINDINGS: There are 5 lumbar type vertebral bodies identified. The vertebral body heights are withi n normal limits. No evidence of acute fracture or dislocation. There is disc space narrowing at L5-S1 . There is grade 1 retrolisthesis of L5 on S1. Mild multilevel anterior marginal osteophytic spurring . There is a 12 mm left-sided renal calculus redemonstrated. A few additional smaller renal calculi a re also seen. IMPRESSION: 1. No acute fracture or dislocation of the lumbar spine. 2. Degenerative disc disease and grade 1 retrolisthesis of L5 on S1. 3. Nephrolithiasis, measuring up to 12 mm in the left.
--- NOTE | 2020-02-10 16:09 | XR ---
EXAMINATION TYPE: XR cervical spine limited DATE OF EXAM: 02/10/2020 TECHNIQUE: Frontal, lateral, and open-mouth view of the cervical spine obtained. HISTORY: M9903, M54.5, M9902, M54.2 back and neck stiffness. COMPARISON: 06/17/2014 cervical spine radiograph FINDINGS: The cervical spine is visualized in its entirety from C1 thru the top of T1 level. No evid ence of fracture or dislocation. There is straightening of the cervical lordosis. There is grade 1 re trolisthesis of C5 on C6. There is C4-C5 and C5-C6 disc space narrowing with osteophytic spurring. Th e atlantoaxial relationship is within normal limits on the open mouth view. IMPRESSION: 1. No acute fracture or dislocation is seen in the cervical spine. 2. Disc osteophyte complexes of C4-5 and C5-6 mildly progressed versus 2013 comparison. 3. Grade 1 retrolisthesis of C5 on C6.
== END | disposition home or self-care (01) ==
LOC: RADXRMAIN 12:30
PROVIDERS: ATTEND Chiropractor
DX: M51.36 Other intervertebral disc degeneration, lumbar region (principal); M99.02 Segmental and somatic dysfunction of thoracic region; M99.03 Segmental and somatic dysfunction of lumbar region; M54.2 Cervicalgia
CPT/HCPCS: 72040; 72100

== ENCOUNTER 2020-06-26 09:40 | Emergency (ER) | payer MEDICARE, OTHER ==
[2020-06-26 09:45] VITALS: RESP 18
[2020-06-26 09:51] LABS: Glucose,Whole Blood 421 mg/dL (75-99)
[2020-06-26] MEDS ORDERED: SODIUM CHLORIDE 0.9% 1,000 ML IV STA ×2 (10:01→10:58)
[2020-06-26 10:16] LABS: Basophils # (A) 0.2 k/uL (0-0.2); Basophils % (A) 1 %; Eosinophils # (A) 0.1 k/uL (0-0.7); Eosinophils % (A) 1 %; HCT 50.5 % (39.0-53.0); HGB 17.7 gm/dL (13.0-17.5); Lymphocytes % (A) 26 %; MCH 30.2 pg (25.0-35.0); MCHC 35.1 g/dL (31.0-37.0); MCV 86.1 fL (80.0-100.0); Monocytes # (A) 0.7 k/uL (0-1.0); Monocytes % (A) 6 %; Neutrophils # (A) 7.3 k/uL (1.3-7.7); Neutrophils % (A) 64 %; Platelet Count 328 k/uL (150-450); RBC 5.87 m/uL (4.30-5.90); RDW 12.5 % (11.5-15.5); WBC 11.4 k/uL (3.8-10.6)
[2020-06-26 10:19] LABS: Appearance,Urine Clear (Clear); Bilirubin,Urine Negative (Negative); Blood,Urine Negative (Negative); Color,Urine Light Yellow; Glucose,Urine (UA) 4+ (Negative); Ketones,Urine Negative (Negative); Leukocyte Esterase,Urine Negative (Negative); Nitrite,Urine Negative (Negative); PH, Urine 5.5 (5.0-8.0); Protein,Urine Negative (Negative); Specific Gravity,Urine 1.037 (1.001-1.035); Urobilinogen,Urine <2.0 mg/dL (<2.0)
--- NOTE | 2020-06-26 10:22 | ED ---
General Adult HPI - General Chief complaint: Weakness Stated complaint: Diabetes Time Seen by Provider: 06/26/20 09:49 Source: patient, RN notes reviewed Mode of arrival: ambulatory Limitations: no limitations - History of Present Illness Initial comments: 54-year-old male with a past medical history of IDDM presents to the emergency room for a chief complaint of weakness. Patient reports he has been weak for the past few days. States this morning he was shaky or the normal too. He checked his blood sugar and it was 438. Patient states he took his insulin and it only went down to 338. He called his doctor who said he should come into the emergency room. Patient does admit to one episode of vomiting earlier today. Denies abdominal pain. Denies cough, shortness of breath, fevers.Patient has no other complaints at this time including shortness of breath, chest pain, abdominal pain, nausea or vomiting, headache, or visual changes. - Related Data Home Medications Medication Instructions Recorded Confirmed Enalapril [Vasotec] 10 mg PO HS 11/17/14 06/26/20 Gabapentin [Neurontin] 600 mg PO TID 11/17/14 06/26/20 Baclofen [Lioresal] 20 mg PO TID 06/26/20 06/26/20 Calcipotriene [Dovonex] 1 applic TOPICAL BID 06/26/20 06/26/20 Dextroamphetamine/Amphetamine 20 mg PO TID 06/26/20 06/26/20 [Dextroamp-Amphetamin 20 mg Tab] FLUoxetine HCL 40 mg PO HS 06/26/20 06/26/20 Insulin Glargine,Hum.rec.anlog 120 units SQ BID 06/26/20 06/26/20 [Dara Wilson] Multivitamins, Thera [Multivitamin 1 tab PO DAILY 06/26/20 06/26/20 (formulary)] OLANZapine [ZyPREXA] 10 mg PO DAILY 06/26/20 06/26/20 [place]-3 Acid Ethyl Esters [Lovaza] 2 gm PO BID 06/26/20 06/26/20 Omeprazole 20 mg PO BID 06/26/20 06/26/20 Oxybutynin Chloride 5 mg PO BID 06/26/20 06/26/20 Pantoprazole [Protonix] 40 mg PO DAILY 06/26/20 06/26/20 Rosuvastatin [Crestor] 10 mg PO DAILY 06/26/20 06/26/20 Tamsulosin HCl [Flomax] 0.4 mg PO DAILY 06/26/20 06/26/20 sitaGLIPtin PHOSPHATE [Januvia] 100 mg PO DAILY 06/26/20 06/26/20 Allergies Allergy/AdvReac Type Severity Reaction Status Date / Time codeine AdvReac Nausea & Verified 06/26/20 11:16 Vomiting Review of Systems ROS Statement: Those systems with pertinent positive or pertinent negative responses have been documented in the HPI. ROS Other: All systems not noted in ROS Statement are negative. Past Medical History Past Medical History: Diabetes Mellitus, Hearing Disorder / Deafness, Osteoarthr itis (OA) Additional Past Medical History / Comment(s): KIDNEY STONES History of Any Multi-Drug Resistant Organisms: None Reported Past Surgical History: Tonsillectomy Past Anesthesia/Blood Transfusion Reactions: No Reported Reaction Past Psychological History: Bipolar Smoking Status: Never smoker Past Alcohol Use History: None Reported Past Drug Use History: None Reported - Past Family History Mother Family Medical History: Cancer Father Family Medical History: Cancer Additional Family Medical History / Comment(s): LUNG CANCER General Exam Limitations: no limitations General appearance: alert, in no apparent distress Head exam: Present: atraumatic, normocephalic, normal inspection Eye exam: Present: normal appearance, PERRL, EOMI. Absent: scleral icterus, conjunctival injection, periorbital swelling ENT exam: Present: normal exam, mucous membranes moist Neck exam: Present: normal inspection, full ROM. Absent: tenderness, meningismus, lymphadenopathy Respiratory exam: Present: normal lung sounds bilaterally. Absent: respiratory distress, wheezes, rales, rhonchi, stridor Cardiovascular Exam: Present: regular rate, normal rhythm, normal heart sounds. Absent: systolic murmur, diastolic murmur, rubs, gallop, clicks GI/Abdominal exam: Present: soft, normal bowel sounds. Absent: distended, tenderness, guarding, rebound, rigid Neurological exam: Present: alert Course Vital Signs 06/26/20 06/26/20 06/26/20 09:42 10:58 12:36 Temperature 99.4 F 98.3 F Pulse Rate 109 H 93 85 Respiratory 18 18 18 Rate Blood Pressure 143/91 121/69 122/72 O2 Sat by Pulse 93 L 94 L 96 Oximetry EKG Findings - EKG Comments: EKG Findings:: Normal sinus rhythm, ventricular rate 92, OH interval 184, QTC 395 Medical Decision Making - Medical Decision Making Vitals are stable. Patient initially slightly tachycardic however this did i mprove throughout his stay. CBC does reveal evidence of hemoconcentration secondary to dehydration. CMP demonstrates hyperglycemia with a glucose of 438. Patient was given 2 L of fluids and this did improve to 263. Lactic acidosis likely secondary to dehydration as well. No evidence of DKA given anion gap is 12 and there are no ketones in the urine. At this time patient is feeling better after fluids. He can be discharged home to follow-up with primary care. If he has worsening symptoms he is aware he needs to return to the emergency room. - Lab Data Result diagrams: 06/26/20 10:06 06/26/20 10:06 Lab Results 06/26/20 06/26/20 06/26/20 Range/Units 09:50 10:06 10:06 WBC 11.4 H (3.8-10.6) k/uL RBC 5.87 (4.30-5.90) m/uL Hgb 17.7 H (13.0-17.5) gm/dL Hct 50.5 (39.0-53.0) % MCV 86.1 (80.0-100.0) fL MCH 30.2 (25.0-35.0) pg MCHC 35.1 (31.0-37.0) g/dL RDW 12.5 (11.5-15.5) % Plt Count 328 (150-450) k/uL MPV 7.0 Neutrophils % 64 % Lymphocytes % 26 % Monocytes % 6 % Eosinophils % 1 % Basophils % 1 % Neutrophils # 7.3 (1.3-7.7) k/uL Lymphocytes # 3.0 (1.0-4.8) k/uL Monocytes # 0.7 (0-1.0) k/uL Eosinophils # 0.1 (0-0.7) k/uL Basophils # 0.2 (0-0.2) k/uL PT 10.1 (9.0-12.0) sec INR 1.0 (<1.2) APTT 24.5 (22.0-30.0) sec Sodium (137-145) mmol/L Potassium (3.5-5.1) mmol/L Chloride (98-107) mmol/L Carbon Dioxide (22-30) mmol/L Anion Gap mmol/L BUN (9-20) mg/dL Creatinine (0.66-1.25) mg/dL Est GFR (CKD-EPI)AfAm (>60 ml/min/1.73 sqM) Est GFR (CKD-EPI)NonAf (>60 ml/min/1.73 sqM) Glucose (74-99) mg/dL POC Glucose (mg/dL) 421 H (75-99) mg/dL POC Glu [employer] Professor ID Bala [place] Lactic Ac Sepsis Rflx Plasma Lactic Acid Grady (0.7-2.0) mmol/L Calcium (8.4-10.2) mg/dL Magnesium (1.6-2.3) mg/dL Total Bilirubin (0.2-1.3) mg/dL AST (17-59) U/L ALT (4-49) U/L Alkaline Phosphatase (38-126) U/L Total Protein (6.3-8.2) g/dL Albumin (3.5-5.0) g/dL Urine Color Urine Appearance (Clear) Urine pH (5.0-8.0) Ur Specific [place] (1.001-1.035) Urine Protein (Negative) Urine Glucose (UA) (Negative) Urine Ketones (Negative) Urine Blood (Negative) Urine Nitrite (Negative) Urine Bilirubin (Negative) Urine Urobilinogen (<2.0) mg/dL Ur Leukocyte Esterase (Negative) Acetone, Qual (Negative) Coronavirus (PCR) (Not Detectd) 06/26/20 06/26/20 06/26/20 Range/Units 10:06 10:06 10:06 WBC (3.8-10.6) k/uL RBC (4.30-5.90) m/uL Hgb (13.0-17.5) gm/dL Hct (39.0-53.0) % MCV (80.0-100.0) fL MCH (25.0-35.0) pg MCHC (31.0-37.0) g/dL RDW (11.5-15.5) % Plt Count (150-450) k/uL MPV Neutrophils % % Lymphocytes % % Monocytes % % Eosinophils % % Basophils % % Neutrophils # (1.3-7.7) k/uL Lymphocytes # (1.0-4.8) k/uL Monocytes # (0-1.0) k/uL Eosinophils # (0-0.7) k/uL Basophils # (0-0.2) k/uL PT (9.0-12.0) sec INR (<1.2) APTT (22.0-30.0) sec Sodium 133 L (137-145) mmol/L Potassium 4.5 (3.5-5.1) mmol/L Chloride 96 L (98-107) mmol/L Carbon Dioxide 25 (22-30) mmol/L Anion Gap 12 mmol/L BUN 17 (9-20) mg/dL Creatinine 0.89 (0.66-1.25) mg/dL Est GFR (CKD-EPI)AfAm >90 (>60 ml/min/1.73 sqM) Est GFR (CKD-EPI)NonAf >90 (>60 ml/min/1.73 sqM) Glucose 438 H (74-99) mg/dL POC Glucose (mg/dL) (75-99) mg/dL POC Glu [employer] Professor ID Lactic Ac Sepsis Rflx Plasma Lactic Acid Grady 2.2 H* (0.7-2.0) mmol/L Calcium 9.8 (8.4-10.2) mg/dL Magnesium 1.6 (1.6-2.3) mg/dL Total Bilirubin 0.5 (0.2-1.3) mg/dL AST 23 (17-59) U/L ALT 31 (4-49) U/L Alkaline Phosphatase 116 (38-126) U/L Total Protein 7.4 (6.3-8.2) g/dL Albumin 4.5 (3.5-5.0) g/dL Urine Color Light Yellow Urine Appearance Clear (Clear) Urine pH 5.5 (5.0-8.0) Ur Specific [place] 1.037 H (1.001-1.035) Urine Protein Negative (Negative) Urine Glucose (UA) 4+ H (Negative) Urine Ketones Negative (Negative) Urine Blood Negative (Negative) Urine Nitrite Negative (Negative) Urine Bilirubin Negative (Negative) Urine Urobilinogen <2.0 (<2.0) mg/dL Ur Leukocyte Esterase Negative (Negative) Acetone, Qual Negative (Negative) Coronavirus (PCR) (Not Detectd) 06/26/20 06/26/20 06/26/20 Range/Units 10:07 10:29 10:57 WBC (3.8-10.6) k/uL RBC (4.30-5.90) m/uL Hgb (13.0-17.5) gm/dL Hct (39.0-53.0) % MCV (80.0-100.0) fL MCH (25.0-35.0) pg MCHC (31.0-37.0) g/dL RDW (11.5-15.5) % Plt Count (150-450) k/uL MPV Neutrophils % % Lymphocytes % % Monocytes % % Eosinophils % % Basophils % % Neutrophils # (1.3-7.7) k/uL Lymphocytes # (1.0-4.8) k/uL Monocytes # (0-1.0) k/uL Eosinophils # (0-0.7) k/uL Basophils # (0-0.2) k/uL PT (9.0-12.0) sec INR (<1.2) APTT (22.0-30.0) sec Sodium (137-145) mmol/L Potassium (3.5-5.1) mmol/L Chloride (98-107) mmol/L Carbon Dioxide (22-30) mmol/L Anion Gap mmol/L BUN (9-20) mg/dL Creatinine (0.66-1.25) mg/dL Est GFR (CKD-EPI)AfAm (>60 ml/min/1.73 sqM) Est GFR (CKD-EPI)NonAf (>60 ml/min/1.73 sqM) Glucose (74-99) mg/dL POC Glucose (mg/dL) 321 H (75-99) mg/dL POC Glu [employer] Professor ID Gordon, Valentine Lactic Ac Sepsis Rflx Y Plasma Lactic Acid Grady (0.7-2.0) mmol/L Calcium (8.4-10.2) mg/dL Magnesium (1.6-2.3) mg/dL Total Bilirubin (0.2-1.3) mg/dL AST (17-59) U/L ALT (4-49) U/L Alkaline Phosphatase (38-126) U/L Total Protein (6.3-8.2) g/dL Albumin (3.5-5.0) g/dL Urine Color Urine Appearance (Clear) Urine pH (5.0-8.0) Ur Specific [place] (1.001-1.035) Urine Protein (Negative) Urine Glucose (UA) (Negative) Urine Ketones (Negative) Urine Blood (Negative) Urine Nitrite (Negative) Urine Bilirubin (Negative) Urine Urobilinogen (<2.0) mg/dL Ur Leukocyte Esterase (Negative) Acetone, Qual (Negative) Coronavirus (PCR) Not Detected (Not Detectd) 06/26/20 Range/Units 12:13 WBC (3.8-10.6) k/uL RBC (4.30-5.90) m/uL Hgb (13.0-17.5) gm/dL Hct (39.0-53.0) % MCV (80.0-100.0) fL MCH (25.0-35.0) pg MCHC (31.0-37.0) g/dL RDW (11.5-15.5) % Plt Count (150-450) k/uL MPV Neutrophils % % Lymphocytes % % Monocytes % % Eosinophils % % Basophils % % Neutrophils # (1.3-7.7) k/uL Lymphocytes # (1.0-4.8) k/uL Monocytes # (0-1.0) k/uL Eosinophils # (0-0.7) k/uL Basophils # (0-0.2) k/uL PT (9.0-12.0) sec INR (<1.2) APTT (22.0-30.0) sec Sodium (137-145) mmol/L Potassium (3.5-5.1) mmol/L Chloride (98-107) mmol/L Carbon Dioxide (22-30) mmol/L Anion Gap mmol/L BUN (9-20) mg/dL Creatinine (0.66-1.25) mg/dL Est GFR (CKD-EPI)AfAm (>60 ml/min/1.73 sqM) Est GFR (CKD-EPI)NonAf (>60 ml/min/1.73 sqM) Glucose (74-99) mg/dL POC Glucose (mg/dL) 263 H (75-99) mg/dL POC Glu [employer] Professor ID Valentine Gordon Lactic Ac Sepsis Rflx Plasma Lactic Acid [place]ady (0.7-2.0) mmol/L Calcium (8.4-10.2) mg/dL Magnesium (1.6-2.3) mg/dL Total Bilirubin (0.2-1.3) mg/dL AST (17-59) U/L ALT (4-49) U/L Alkaline Phosphatase (38-126) U/L Total Protein (6.3-8.2) g/dL Albumin (3.5-5.0) g/dL Urine Color Urine Appearance (Clear) Urine pH (5.0-8.0) Ur Specific [place] (1.001-1.035) Urine Protein (Negative) Urine Glucose (UA) (Negative) Urine Ketones (Negative) Urine Blood (Negative) Urine Nitrite (Negative) Urine Bilirubin (Negative) Urine Urobilinogen (<2.0) mg/dL Ur Leukocyte Esterase (Negative) Acetone, Qual (Negative) Coronavirus (PCR) (Not Detectd) Disposition Clinical Impression: Hyperglycemia, Dehydration Disposition: HOME SELF-CARE Condition: Good Instructions (If sedation given, give patient instructions): Diabetic Hyperglycemia (ED) Additional Instructions: Please drink plenty of fluids. Please follow-up with your doctor in one to 2 days. Return to the emergency room for any worsening symptoms. Is patient prescribed a controlled substance at d/c from ED?: No Referrals: Oseas Veras MD [Primary Care Provider] - 1-2 days Time of Disposition: 12:39
[2020-06-26 10:25] LABS: Partial Thromboplastin Time 24.5 sec (22.0-30.0); Prothrombin Time 10.1 sec (9.0-12.0)
[2020-06-26 10:28] LABS: ALT 31 U/L (4-49); AST 23 U/L (17-59); African American GFR (CKD) >90 (>60 ml/min/1.73 sqM); Albumin 4.5 g/dL (3.5-5.0); Alkaline Phosphatase 116 U/L (38-126); Anion Gap 12 mmol/L; Blood Urea Nitrogen 17 mg/dL (9-20); Calcium 9.8 mg/dL (8.4-10.2); Carbon Dioxide 25 mmol/L (22-30); Chloride 96 mmol/L (98-107); Glucose 438 mg/dL (74-99); Magnesium 1.6 mg/dL (1.6-2.3); Non-African American GFR(CKD) >90 (>60 ml/min/1.73 sqM); Potassium 4.5 mmol/L (3.5-5.1); Sodium 133 mmol/L (137-145); Total Bilirubin 0.5 mg/dL (0.2-1.3); Total Protein 7.4 g/dL (6.3-8.2)
--- NOTE | 2020-06-26 10:36 | XR ---
EXAMINATION TYPE: XR chest 1V portable DATE OF EXAM: 06/26/2020 Comparison: 11/17/2014 Clinical History: 54-year-old male with weakness Findings: Heart is borderline in size. Aorta and pulmonary vasculature within normal limits. Mild hyperinflatio n. No consolidation or pleural effusion. Impression: Borderline heart size. Possible underlying COPD. Otherwise, no acute cardiopulmonary process.
[2020-06-26 11:11] LABS: Glucose,Whole Blood 321 mg/dL (75-99)
[2020-06-26 12:16] LABS: Glucose,Whole Blood 263 mg/dL (75-99)
[2020-06-26 12:38] VITALS: BP 122/72; PULSE 85; TEMP 98.3
== END 2020-06-26 12:58 | disposition home or self-care (01) ==
LOC: EC 09:40
DX: E86.0 Dehydration (principal); E11.65 Type 2 diabetes mellitus with hyperglycemia; R00.0 Tachycardia, unspecified; E87.2 Acidosis; H91.90 Unspecified hearing loss, unspecified ear; F31.9 Bipolar disorder, unspecified; Z20.828 Contact with and (suspected) exposure to other viral communicable diseases; Z79.4 Long term (current) use of insulin; Z79.899 Other long term (current) drug therapy; Z88.5 Allergy status to narcotic agent; Z87.442 Personal history of urinary calculi
CPT/HCPCS: 36415; 71045; 80053; 81003; 82009; 83605; 83735; 85025; 85610; 85730; 87635; 93005; 96360; 96361; 99285

== ENCOUNTER 2020-07-10 16:20 | Emergency (ER) | payer MEDICARE, OTHER ==
[2020-07-10 16:26] VITALS: BP 149/89; PULSE 79; RESP 18; TEMP 98.4
[2020-07-10] MEDS ORDERED: KETOROLAC 15 MG/ML 1 ML VIAL IM STA (16:32)
[2020-07-10] MEDS ORDERED: HYDROcodone/APAP 7.5-325MG 1 EACH TAB PO ONE (16:32)
--- NOTE | 2020-07-10 16:36 | ED ---
Back Pain HPI - General Chief Complaint: Back Pain/Injury Stated Complaint: Back pain Time Seen by Provider: 07/10/20 16:28 Source: patient Limitations: no limitations - History of Present Illness Initial Comments: 54yo male presenting to the ER today for cc of back pain. states he has been taken off all pain medications because he didnt have opiods in his urine at his medications provider once and they thought he was selling them. he states he has had chronic nack pain for year and has occasional flares. pt states for the past few days he has had increasing back pain, lower, bandlike. Patient denies fevers cancer or IV drug use he denies loss of bowel bladder control urinary retention who weakness or sensation deficits of the lower extremity. She states he does have history of kidney stones however this does not feel similar to that kind of pain. Patient denies any urinary changes or hematuria. She denies a falls or new trauma. Patient states that OTC medications arent working and presented to the ER for pain management. Pain 04/09 - Related Data Home Medications Medication Instructions Recorded Confirmed Enalapril [Vasotec] 10 mg PO HS 11/17/14 06/26/20 Gabapentin [Neurontin] 600 mg PO TID 11/17/14 06/26/20 Baclofen [Lioresal] 20 mg PO TID 06/26/20 06/26/20 Calcipotriene [Dovonex] 1 applic TOPICAL BID 06/26/20 06/26/20 Dextroamphetamine/Amphetamine 20 mg PO TID 06/26/20 06/26/20 [Dextroamp-Amphetamin 20 mg Tab] FLUoxetine HCL 40 mg PO HS 06/26/20 06/26/20 Insulin Glargine,Hum.rec.anlog 120 units SQ BID 06/26/20 06/26/20 [Dara Wilson] Multivitamins, Thera [Multivitamin 1 tab PO DAILY 06/26/20 06/26/20 (formulary)] OLANZapine [ZyPREXA] 10 mg PO DAILY 06/26/20 06/26/20 [place]-3 Acid Ethyl Esters [Lovaza] 2 gm PO BID 06/26/20 06/26/20 Omeprazole 20 mg PO BID 06/26/20 06/26/20 Oxybutynin Chloride 5 mg PO BID 06/26/20 06/26/20 Pantoprazole [Protonix] 40 mg PO DAILY 06/26/20 06/26/20 Rosuvastatin [Crestor] 10 mg PO DAILY 06/26/20 06/26/20 Tamsulosin HCl [Flomax] 0.4 mg PO DAILY 06/26/20 06/26/20 sitaGLIPtin PHOSPHATE [Januvia] 100 mg PO DAILY 06/26/20 06/26/20 Allergies Allergy/AdvReac Type Severity Reaction Status Date / Time codeine AdvReac Nausea & Verified 07/10/20 16:26 Vomiting Review of Systems ROS Statement: Those systems with pertinent positive or pertinent negative responses have been documented in the HPI. ROS Other: All systems not noted in ROS Statement are negative. Past Medical History Past Medical History: Diabetes Mellitus, Hearing Disorder / Deafness, Osteoarthritis (OA) Additional Past Medical History / Comment(s): KIDNEY STONES History of Any Multi-Drug Resistant Organisms: None Reported Past Surgical History: Tonsillectomy Past Anesthesia/Blood Transfusion Reactions: No Reported Reaction Past Psychological History: Bipolar Smoking Status: Never smoker Past Alcohol Use History: None Reported Past Drug Use History: None Reported - Past Family History Mother Family Medical History: Cancer Father Family Medical History: Cancer Additional Family Medical History / Comment(s): LUNG CANCER General Exam - General Exam Comments Initial Comments: General: The patient is awake and alert, in no distress Eye: Pupils are equal, round and reactive to light, extra-ocular movements are intact. No nystagmus. There is normal conjunctiva bilaterally. No signs of icterus. Cardiovascular: There is a regular rate and rhythm. No murmur, rub or gallop is appreciated. Respiratory: Lungs are clear to auscultation, respirations are non-labored, breath sounds are equal. No wheezes, stridor, rales, or rhonchi. Gastrointestinal: Soft, non-distended, non-tender abdomen without masses or organomegaly noted. There is no rebound or guarding present. No CVA tenderness. Musculoskeletal: No skin changes of the thoracic or lumbar spine. Bandlike tenderness over the paraspinal muscles of the lumbar aspect. No midline tenderness Normal ROM, no tenderness. Strength 5/5 of the lower extremities equal and comparison bilaterally. Sensation intact intact in the saddle region e qual comparison bilaterally. Radial and DP pulses equal bilaterally 2+. +2 out of 5D tendon reflexes of the Achilles and patellar. There is no hypo-or hyperreflexia. No myoclonus or fasciculations. Neurological: A&O x 3. CN II-XII intact grossly, There are no obvious motor or sensory deficits. Coordination appears grossly intact. Speech is normal. Skin: Skin is warm and dry and no rashes or lesions are noted. Psychiatric: Cooperative, appropriate mood & affect, normal judgment. Limitations: no limitations Course Vital Signs 07/10/20 16:22 Temperature 98.4 F Pulse Rate 79 Respiratory 18 Rate Blood Pressure 149/89 O2 Sat by Pulse 98 Oximetry Medical Decision Making - Medical Decision Making 54-year-old male presented for low back pain he states he's been taken off his pain medications. He states his chronic pain he states occasionally has flares which she believes has been ongoing for the past 2 days. Patient is no focal neurological deficits on physical examination he is vascularly intact. Patient is able to walk. Negative straight leg no midline tenderness. No new injuries. Patient provided pain management pain went from 10 out of 10-1 out of 10. Upon discharge patient dropped his papers is able to bend over and picked him up without signs of struggle per AMMY Baker. Pt discharged appearing well and is to f/u with PCP. Return parameters discussed. Disposition Clinical Impression: Chronic back pain Disposition: HOME SELF-CARE Condition: Good Instructions (If sedation given, give patient instructions): Chronic Pain (ED), Acute Low Back Pain (ED) Additional Instructions: Please use medication as discussed. Please follow-up with family doctor in the next 2 days. Please return to emergency room if the symptoms increase or worsen or for any other concerns. Is patient prescribed a controlled substance at d/c from ED?: No Referrals: Oseas Veras MD [Primary Care Provider] - 1-2 days Time of Disposition: 16:36
== END 2020-07-10 17:07 | disposition home or self-care (01) ==
LOC: EC 16:20
DX: M54.5 Low back pain (principal); G89.29 Other chronic pain; E11.9 Type 2 diabetes mellitus without complications; M19.90 Unspecified osteoarthritis, unspecified site; F31.9 Bipolar disorder, unspecified; Z79.4 Long term (current) use of insulin; Z79.899 Other long term (current) drug therapy; Z88.5 Allergy status to narcotic agent; Z87.442 Personal history of urinary calculi
CPT/HCPCS: 99283 ×2; 96372 ×2; J1885

== ENCOUNTER 2020-10-08 12:45 | Emergency (ER) | payer MEDICARE, OTHER ==
[2020-10-08 13:01] VITALS: RESP 18
--- NOTE | 2020-10-08 13:23 | XR ---
EXAMINATION TYPE: XR chest 2V DATE OF EXAM: 10/08/2020 COMPARISON: 06/26/2020 INDICATION: Cough TECHNIQUE: Frontal and lateral views of the chest are obtained. FINDINGS: The heart size is mildly prominent. The pulmonary vasculature is normal. Mild right lower lobe infiltrate is present. Correlate for atelectasis or pneumonia. Atypical pneumon ia could be considered. Follow-up can be performed as clinically indicated. IMPRESSION: 1. Mild right lower lobe ill-defined infiltrate. Correlate for pneumonia and atypical pneumonia. 2. Mild cardiomegaly
--- NOTE | 2020-10-08 13:48 | ED ---
General Adult HPI - General Chief complaint: Upper Respiratory Infection Stated complaint: cough Time Seen by Provider: 10/08/20 13:39 Source: patient Mode of arrival: ambulatory Limitations: no limitations - History of Present Illness Initial comments: Dictation was produced using [employer] dictation software. please excuse any grammatical, word or spelling errors. This patient was cared for during a federal and state declared state of emergency secondary to Covid 19 Chief Complaint: 55-year-old male past medical history of diabetes, neuropathy, high cholesterol presents emergency department for 4 days and cough. History of Present Illness: This 55-year-old male has multiple comorbidities. He states he is here in emergency department to get rid of this cough. He's been having symptoms for proximal 4 days. He denies any fevers. Patient denies any obvious exposures of anybody with upper respiratory infectious symptoms. The ROS documented in this emergency department record has been reviewed and confirmed by me. Those systems with pertinent positive or negative responses have been documented in the HPI. All other systems are other negative and/or noncontributory. PHYSICAL EXAM: General Impression: Alert and oriented x3, not in acute distress HEENT: Normocephalic atraumatic, extra-ocular movements intact, pupils equal and reactive to light bilaterally, mucous membranes moist. Cardiovascular: Heart regular rate and rhythm Chest: Able to complete full sentences, no retractions, no tachypnea Abdomen: abdomen soft, non-tender, non-distended, no organomegaly Musculoskeletal: Pulses present and equal in all extremities, no peripheral edema Motor: no focal deficits noted Neurological: CN II-XII grossly intact, no focal motor or sensory deficits noted Skin: Intact with no visualized rashes Psych: Normal affect and mood ED course: 55-year-old male presents with URI 4 days vital signs upon arrival shows 94% on room air cumbersome vital signs within acceptable limits. Patient is symptomatic for 4 days. Patient is Covid positive. His x-ray shows right lower lobe infiltrate. Clinical presentation consistent Covid 19. Patient does meet multiple criteria for administration monoclonal antibodies. She was observed for one hour after antibody infusion stable medical condition. Patient discharge. - Related Data Home Medications Medication Instructions Recorded Confirmed Enalapril [Vasotec] 10 mg PO HS 11/17/14 06/26/20 Gabapentin [Neurontin] 600 mg PO TID 11/17/14 06/26/20 Baclofen [Lioresal] 20 mg PO TID 06/26/20 06/26/20 Calcipotriene [Dovonex] 1 applic TOPICAL BID 06/26/20 06/26/20 Dextroamphetamine/Amphetamine 20 mg PO TID 06/26/20 06/26/20 [Dextroamp-Amphetamin 20 mg Tab] FLUoxetine HCL 40 mg PO HS 06/26/20 06/26/20 Insulin Glargine,Hum.rec.anlog 120 units SQ BID 06/26/20 06/26/20 [Toujeo Max Solostar] Multivitamins, Thera [Multivitamin 1 tab PO DAILY 06/26/20 06/26/20 (formulary)] OLANZapine [ZyPREXA] 10 mg PO DAILY 06/26/20 06/26/20 [place]-3 Acid Ethyl Esters [Lovaza] 2 gm PO BID 06/26/20 06/26/20 Omeprazole 20 mg PO BID 06/26/20 06/26/20 Oxybutynin Chloride 5 mg PO BID 06/26/20 06/26/20 Pantoprazole [Protonix] 40 mg PO DAILY 06/26/20 06/26/20 Rosuvastatin [Crestor] 10 mg PO DAILY 06/26/20 06/26/20 Tamsulosin HCl [Flomax] 0.4 mg PO DAILY 06/26/20 06/26/20 sitaGLIPtin PHOSPHATE [Januvia] 100 mg PO DAILY 06/26/20 06/26/20 Allergies Allergy/AdvReac Type Severity Reaction Status Date / Time codeine AdvReac Nausea & Verified 10/08/20 13:01 Vomiting Review of Systems ROS Statement: Those systems with pertinent positive or pertinent negative responses have been documented in the HPI. ROS Other: All systems not noted in ROS Statement are negative. Past Medical History Past Medical History: Diabetes Mellitus, Hearing Disorder / Deafness, Osteoarthritis (OA) Additional Past Medical History / Comment(s): KIDNEY STONES History of Any Multi-Drug Resistant Organisms: None Reported Past Surgical History: Tonsillectomy Past Anesthesia/Blood Transfusion Reactions: No Reported Reaction Past Psychological History: Bipolar Smoking Status: Never smoker Past Alcohol Use History: None Reported Past Drug Use History: None Reported - Past Family History Mother Family Medical History: Cancer Father Family Medical History: Cancer Additional Family Medical History / Comment(s): LUNG CANCER General Exam Limitations: no limitations Course Vital Signs 10/08/20 10/08/20 10/08/20 12:59 14:22 14:32 Temperature 98.6 F 98.6 F Pulse Rate 74 72 Respiratory 18 18 18 Rate Blood Pressure 136/83 127/76 O2 Sat by Pulse 94 L 92 L Oximetry 10/08/20 15:48 Temperature 98.2 F Pulse Rate 69 Respiratory 18 Rate Blood Pressure 121/84 O2 Sat by Pulse 93 L Oximetry Medical Decision Making - Lab Data Lab Results 10/08/20 Range/Units 13:03 Coronavirus (PCR) Detected A (Not Detectd) Disposition Clinical Impression: COVID-19 Disposition: HOME SELF-CARE Instructions (If sedation given, give patient instructions): Coronavirus Disease 2019 (COVID-19), Pneumonia (ED) Is patient prescribed a controlled substance at d/c from ED?: No Referrals: Oseas Veras MD [Primary Care Provider] - 1-2 days Time of Disposition: 15:52
[2020-10-08] MEDS: BAMLANIVIMAB (EUA) 700 MG, ETESEVIMAB (EUA) 1,400 MG in SODIUM CHLORIDE 0.9% 50 ML IVPB ONE (14:27)
[2020-10-08] MEDS: SODIUM CHLORIDE 0.9% 50 ML IVPB ONE (14:43)
[2020-10-08 15:49] VITALS: BP 121/84; PULSE 69; TEMP 98.2
== END 2020-10-08 15:49 | disposition home or self-care (01) ==
LOC: EC 12:45
DX: U07.1 COVID-19 (principal); E11.40 Type 2 diabetes mellitus with diabetic neuropathy, unspecified; E78.00 Pure hypercholesterolemia, unspecified; M19.90 Unspecified osteoarthritis, unspecified site; F31.9 Bipolar disorder, unspecified; H91.90 Unspecified hearing loss, unspecified ear; Z79.4 Long term (current) use of insulin
CPT/HCPCS: 71046; 87635; 96365; 99284

== ENCOUNTER 2020-11-15 05:57 | Emergency (ER) | payer MEDICARE, OTHER ==
[2020-11-15 06:10] VITALS: BP 154/91; PULSE 69; RESP 18; TEMP 98.9
[2020-11-15] MEDS ORDERED: KETOROLAC 15 MG/ML 1 ML VIAL IM STA (06:20)
[2020-11-15] MEDS ORDERED: MORPHINE SULFATE 4 MG/ML SYRINGE IM STA (06:30)
--- NOTE | 2020-11-15 06:32 | XR ---
EXAMINATION TYPE: XR ankle complete RT DATE OF EXAM: 11/15/2020 CLINICAL HISTORY: Fall injury with pain. TECHNIQUE: Frontal, lateral and oblique images of the right ankle are obtained. COMPARISON: None. FINDINGS: There is an acute minimally displaced spiral type fracture through the lateral malleolus e xtending to level of the ankle mortise. The ankle mortise symmetry appears maintained. Posterior and medial malleoli are intact. Mild to moderate associated soft tissue swelling is noted. IMPRESSION: There is an acute minimally displaced spiral type fracture through the lateral malleolus . (Centeno type B)
--- NOTE | 2020-11-15 06:46 | ED ---
Fall HPI - General Chief Complaint: Fall Stated Complaint: Fall, neck pain, RT ankle pain Time Seen by Provider: 11/15/20 06:14 Source: patient Mode of arrival: ambulatory - History of Present Illness Initial Comments: 55-year-old male presenting to the ER today for chief complaint of right ankle pain, fall. Patient states that he heard a pop in his right ankle while walking he states he then fell to the ground. Patient states he has right lateral ankle pain as well as some mild neck pain. Patient denies any headaches nausea vomiting visual changes denies any chest pain shortness of breath and hip or back pain. Patient appears well on arrival no acute distress. - Related Data Home Medications Medication Instructions Recorded Confirmed Enalapril [Vasotec] 10 mg PO HS 11/17/14 06/26/20 Gabapentin [Neurontin] 600 mg PO TID 11/17/14 06/26/20 Baclofen [Lioresal] 20 mg PO TID 06/26/20 06/26/20 Calcipotriene [Dovonex] 1 applic TOPICAL BID 06/26/20 06/26/20 Dextroamphetamine/Amphetamine 20 mg PO TID 06/26/20 06/26/20 [Dextroamp-Amphetamin 20 mg Tab] FLUoxetine HCL 40 mg PO HS 06/26/20 06/26/20 Insulin Glargine,Hum.rec.anlog 120 units SQ BID 06/26/20 06/26/20 [[place]into Solostar] Multivitamins, Thera [Multivitamin 1 tab PO DAILY 06/26/20 06/26/20 (formulary)] OLANZapine [ZyPREXA] 10 mg PO DAILY 06/26/20 06/26/20 [place]-3 Acid Ethyl Esters [Lovaza] 2 gm PO BID 06/26/20 06/26/20 Omeprazole 20 mg PO BID 06/26/20 06/26/20 Oxybutynin Chloride 5 mg PO BID 06/26/20 06/26/20 Pantoprazole [Protonix] 40 mg PO DAILY 06/26/20 06/26/20 Rosuvastatin [Crestor] 10 mg PO DAILY 06/26/20 06/26/20 Tamsulosin HCl [Flomax] 0.4 mg PO DAILY 06/26/20 06/26/20 sitaGLIPtin PHOSPHATE [Januvia] 100 mg PO DAILY 06/26/20 06/26/20 Allergies Allergy/AdvReac Type Severity Reaction Status Date / Time codeine AdvReac Nausea & Verified 11/15/20 06:10 Vomiting Review of Systems ROS Statement: Those systems with pertinent positive or pertinent negative responses have been documented in the HPI. ROS Other: All systems not noted in ROS Statement are negative. Past Medical History Past Medical History: Diabetes Mellitus, Hearing Disorder / Deafness, Osteoarthr itis (OA) Additional Past Medical History / Comment(s): KIDNEY STONES History of Any Multi-Drug Resistant Organisms: None Reported Past Surgical History: Tonsillectomy Additional Past Surgical History / Comment(s): Nerve stimulator Past Anesthesia/Blood Transfusion Reactions: No Reported Reaction Past Psychological History: Bipolar Smoking Status: Never smoker Past Alcohol Use History: None Reported Past Drug Use History: None Reported - Past Family History Mother Family Medical History: Cancer Father Family Medical History: Cancer Additional Family Medical History / Comment(s): LUNG CANCER General Exam - General Exam Comments Initial Comments: General: The patient is awake and alert, in no distress Eye: +3 mm pupils are equal, round and reactive to light, extra-ocular movements are intact. No nystagmus. There is normal conjunctiva bilaterally. No signs of icterus. Ears, nose, mouth and throat: There are moist mucous membranes and no oral lesions. Neck: The neck is supple, there is no tenderness or JVD. Cardiovascular: There is a regular rate and rhythm. No murmur, rub or gallop is appreciated. Respiratory: Lungs are clear to auscultation, respirations are non-labored, breath sounds are equal. No wheezes, stridor, rales, or rhonchi. Gastrointestinal: Soft, non-distended, non-tender abdomen without masses or organomegaly noted. There is no rebound or guarding present. Musculoskeletal: Some mild right ankle swelling, pain to palpation laterally. Normal ROM. Strength 5/5 of the LE b/l. Sensation intact of the LE b/l. DP pulses equal bilaterally 2+. Neurological: A&O x 3. CN II-XII intact grossly, There are no obvious motor or sensory deficits. Coordination appears grossly intact. Speech is normal. Skin: Skin is warm and dry and no rashes or lesions are noted. Psychiatric: Cooperative, appropriate mood & affect, normal judgment. Limitations: no limitations Course Vital Signs 11/15/20 06:05 Temperature 98.9 F Pulse Rate 69 Respiratory 18 Rate Blood Pressure 154/91 O2 Sat by Pulse 95 Oximetry Procedures - Orthopedic Splinting/Casting Injury #1 Side: right Lower Extremity Injury Location: ankle Lower Extremity Immobilizer: posterior splint, stirrup splint, synthetic pre- padded splint Other Orthopedic Equipment: crutches Medical Decision Making - Medical Decision Making 55yo male presenting for cc of fall. CT brain c-spine (-). full rom without limitation or pain out of proportion. XR shah B fibula fracture right. pt discharged appearing well with orthopedic f/u and cruthces. splinted with a prepadded synethic splint posterior mold with stirrups. Disposition Clinical Impression: Closed fracture of right distal fibula, Fall Disposition: HOME SELF-CARE Condition: Good Instructions (If sedation given, give patient instructions): Ankle Fracture (ED) Is patient prescribed a controlled substance at d/c from ED?: No Referrals: Oseas Veras MD [Primary Care Provider] - 1-2 days Chuckie Salmeron DO [Doctor of Osteopathic Medicine] - 1-2 days Time of Disposition: 06:49
--- NOTE | 2020-11-15 07:04 | CT ---
EXAMINATION TYPE: CT brain cspine wo con DATE OF EXAM: 11/15/2020 COMPARISON: CT brain December 16, 2014 HISTORY: fall injury, headache and neck pain CT DLP: 1639.4 mGycm. Automated Exposure Control for Dose Reduction was Utilized. TECHNIQUE: CT scan of the head and cervical spine are performed without contrast. FINDINGS: There is no acute intracranial hemorrhage, mass effect, or midline shift identified. The ventricles and sulci are within normal limits in size for patient's age.. Old fracture deformity med ial wall left orbit axial image 17 redemonstrated. The calvarium is intact. Visualized paranasal sinu ses are grossly clear. Cervical spine is visualized in its entirety from C1 through upper thoracic levels and demonstrates s traightened alignment without evidence of acute fracture or dislocation. Prevertebral soft tissue ap pears within normal limits. The C1-C2 articulation is within normal limits on the coronal images. M oderate disc space narrowing and spurring C5-C6 level. Posterior spur disc complex effacing the anter ior thecal sac at this level. At C4-C5 level posterior spur disc complex and left-sided uncovertebral facet degenerative changes are present. Additional spur disc complex noted at C6-C7 level. Thyroid g land appears within normal limits. Lung apices show no pneumothorax IMPRESSION: 1. There is no acute fracture or dislocation evident in the cervical spine. 2. No acute intracranial hemorrhage or midline shift is seen.
== END 2020-11-15 07:31 | disposition home or self-care (01) ==
LOC: EC 05:57
DX: S82.831A Other fracture of upper and lower end of right fibula, initial encounter for closed fracture (principal); M54.2 Cervicalgia; R51.9 Headache, unspecified; E11.9 Type 2 diabetes mellitus without complications; M19.90 Unspecified osteoarthritis, unspecified site; Z79.4 Long term (current) use of insulin; Z87.442 Personal history of urinary calculi; Z80.1 Family history of malignant neoplasm of trachea, bronchus and lung; Z88.5 Allergy status to narcotic agent; W19.XXXA Unspecified fall, initial encounter; Y93.01 Activity, walking, marching and hiking
CPT/HCPCS: 99284; 29515; 96372; 73610; 72125; 70450; J2270

== ENCOUNTER → 2020-11-17 | Outpatient (CLI) | payer MEDICARE, OTHER ==
[2020-11-17 14:40] LABS: Basophils # (A) 0.1 k/uL (0-0.2); Basophils % (A) 1 %; Eosinophils # (A) 0.1 k/uL (0-0.7); Eosinophils % (A) 2 %; HCT 48.4 % (39.0-53.0); Lymphocytes # (A) 2.2 k/uL (1.0-4.8); Lymphocytes % (A) 26 %; MCH 29.9 pg (25.0-35.0); MCHC 35.2 g/dL (31.0-37.0); MCV 84.9 fL (80.0-100.0); Mean Platelet Volume 7.3; Monocytes # (A) 0.5 k/uL (0-1.0); Monocytes % (A) 6 %; Neutrophils # (A) 5.7 k/uL (1.3-7.7); Neutrophils % (A) 65 %; Platelet Count 334 k/uL (150-450); RDW 12.5 % (11.5-15.5); WBC 8.7 k/uL (3.8-10.6)
[2020-11-17 14:58] LABS: Potassium 3.9 mmol/L (3.5-5.1)
== END | disposition home or self-care (01) ==
LOC: LABPAT 12:57
PROVIDERS: ATTEND Orthopaedic Surgery
DX: Z01.812 Encounter for preprocedural laboratory examination (principal); S82.61XD Displaced fracture of lateral malleolus of right fibula, subsequent encounter for closed fracture with routine healing; X58.XXXD Exposure to other specified factors, subsequent encounter; I21.19 ST elevation (STEMI) myocardial infarction involving other coronary artery of inferior wall; R94.31 Abnormal electrocardiogram [ECG] [EKG]
CPT/HCPCS: 36415; 80051; 85025; 93005

== ENCOUNTER 2020-11-22 10:20 | Day surgery (SDC) | payer MEDICARE, OTHER ==
[2020-11-21 09:31] VITALS: BMI 37.5
--- NOTE | 2020-11-22 06:39 | P.HPOR ---
History of Present Illness H&P Date: 11/16/20 Chief Complaint: Ankle fracture CC: I fell and broke my ankle. Subjective: The patient is a 55 year old male with a chief complaint of pain in the right ankle. Patient states that on 11/15/2020 that his legs gave out and he fell in his bathroom at home. Patient was seen in the Emergency Room where xrays were obtained and he was placed in a splint. He is taking Ibuprofen 800mg for pain. Patient is non weight bearing and ambulating in a wheelchair today. 14 points review of systems completed and as stated in HPI, all other systems reviewed are negative. Review of Systems 14 points review of systems completed and as stated in HPI, all other systems reviewed are negative. Past Medical History Past Medical History: Diabetes Mellitus, GERD/Reflux, Hearing Disorder / Deafness, Hyperlipidemia, Hypertension, Osteoarthritis (OA) Additional Past Medical History / Comment(s): KIDNEY STONES, FX RT ANKLE 11/13/20 History of Any Multi-Drug Resistant Organisms: None Reported Past Surgical History: Tonsillectomy Additional Past Surgical History / Comment(s): Nerve stimulator Past Anesthesia/Blood Transfusion Reactions: No Reported Reaction Smoking Status: Former smoker - Past Family History Mother Family Medical History: Cancer Father Family Medical History: Cancer Additional Family Medical History / Comment(s): LUNG CANCER Medications and Allergies Home Medications Medication Instructions Recorded Confirmed Type Enalapril [Vasotec] 10 mg PO HS 11/17/14 11/21/20 History Gabapentin [Neurontin] 600 mg PO TID 11/17/14 11/21/20 History Baclofen [Lioresal] 20 mg PO TID 06/26/20 11/21/20 History Calcipotriene [Dovonex] 1 applic TOPICAL BID 06/26/20 11/21/20 History Dextroamphetamine/Amphetamine 20 mg PO TID 06/26/20 11/21/20 History [Dextroamp-Amphetamin 20 mg Tab] FLUoxetine HCL 40 mg PO HS 06/26/20 11/21/20 History Insulin Glargine,Hum.rec.anlog 120 units SQ BID 06/26/20 11/21/20 History [Touchet Jacinto Solostar] Multivitamins, Thera [Multivitamin 1 tab PO DAILY 06/26/20 11/21/20 History (formulary)] OLANZapine [ZyPREXA] 10 mg PO DAILY 06/26/20 11/21/20 History [place]-3 Acid Ethyl Esters [Lovaza] 2 gm PO BID 06/26/20 11/21/20 History Omeprazole 20 mg PO BID 06/26/20 11/21/20 History Oxybutynin Chloride 5 mg PO BID 06/26/20 11/21/20 History Pantoprazole [Protonix] 40 mg PO DAILY 06/26/20 11/21/20 History Rosuvastatin [Crestor] 10 mg PO DAILY 06/26/20 11/21/20 History Tamsulosin HCl [Flomax] 0.4 mg PO DAILY 06/26/20 11/21/20 History sitaGLIPtin PHOSPHATE [Januvia] 100 mg PO DAILY 06/26/20 11/21/20 History Ibuprofen [Motrin] 800 mg PO Q8H PRN 11/21/20 11/21/20 History Allergies Allergy/AdvReac Type Severity Reaction Status Date / Time codeine AdvReac Nausea & Verified 11/21/20 09:18 Vomiting Physical Examination Osteopathic Statement: *. No significant issues noted on an osteopathic structural exam other than those noted in the History and Physical/Consult. hysical Examination: BP: 120/72, Left Arm, Pulse: 72 Height: 5'7", Weight: 240 lbs General: Well appearing, well nourished in no distress. Body habitus: Endomorphic ANKLE: right Lateral: Swelling: moderate Ecchymosis: moderate Tenderness to palpation: moderate Medial: Swelling: none Ecchymosis: none Tenderness to palpation: none Proximal fibular tenderness: none ROM: limited Skin: intact, except as noted above Neurovascular: intact sensation, good pulses Motor: able to flex/extend toes Results XRAY: 3 views of the right ankle from 11/15/2020 were reviewed today. These reveal: lateral malleloar fracture ania b with displacement and shortening as well as rotation. There appearst to be some medial clear space widening on mortise view as well measuring around 4.5 mm. There is good Tib/fib overlap on AP but mortis there is suspicion for syndesmotic injury. No other fracture noted. Assessment and Plan Assessment: right ankle lateral malleolar fracture-displaced Plan: The nature of the fracture, recovery/healing process, termite inspector expectations, and risks were discussed with the patient A short leg splint was recommended with non-weight bearing. I recommend the following surgical procedure: Open reduction, internal fixation (CPT 93038 [place] [address] [place] [address]) right lateral malleolus fracture Orthopedic Surgery Risk Review Sampson Zamora is a 55-year-old male presenting for evaluation of sudden onset right lower extremity pain, inability to ambulate after following and twisting his right ankle. It was my pleasure to have seen and examined Sampson Zamora . In our visit today we have had a chance to go over subjective complaints, physical examination findings and treatments including the natural course history without intervention and various interventional options. His imaging demonstrates right displaced lateral malleolar fracture Centeno B. On physical exam, Sampson Zamora demonstrates pain with motion of right ankle, which is NV intact at this time. I have explained to the patient that this fracture needs stabilization. Based on the patients imaging, physical exam, and the rapid progression and disabling nature of her symptoms, at this time I recommend surgery in the form or a: Right ankle ORIF I discussed the risk and benefits of this procedure at length with Sampson Zamora . Questions were invited and answered, and the patient wishes to proceed as outlined below. Currently, I am recommendin. Right ankle open reduction internal fixation lateral malleolus fracture 2. Review of surgical risks and benefits as well as an educational packet on the proposed surgical procedure. Risks: All surgical procedures come with inherent risks, including those related to positioning, anesthesia, intraoperative findings, and postoperative complications. It is important to understand that surgery does not come with any guarantee of a successful outcome as complications and adverse events are always possible. The patient was given a handout discussing the surgical procedure and risks associated with the intervention, both of which were discussed with the patient. These risks include but are not limited to the following: - Experiencing same, different or even worse symptoms compared to before surgery. - Requiring further surgery or other forms of treatment presently or at some time in the future . - On an extreme but fortunately relatively rare basis severe complication such as blindness, stroke, heart attack, temporary and/or permanent nerve inju ry, paralysis, coma, or may occur, sometimes without known explanation. - Surgical complications may include but are not limited to risk of infection, fluid accumulation in the surgical dissection site, including a seroma or hematoma, that requires additional surgery, wound drainage, bleeding, new numbness or weakness, vision changes/loss, spinal fluid leakage, non-healing and/or infected incision, headaches, difficulty or inability to swallow, hoarseness, hemopneumothorax, pneumothorax, injury to nerves, spinal cord, blood vessels, lymphatics or other vital organs (i.e., bowel injury, injury to the great vessels); heterotopic bone formation; complications related to the hardware such as screws, rods, including misplaced hardware, device failure, hardware fracture/breakage, or hardware loosening; retained surgical instrumentations or devices and the need for further surgery. - Medical risks of the planned surgery include but are not limited to generalized Infections to the whole body or local areas outside of the surgical site (sepsis), heart attack, bleeding, anaphylaxis, meningitis, seizure, epilepsy, hearing loss, burn reyna, laceration of the head or other areas of the body, bruising, hypersensitivity of the skin, bladder over distension; allergic reaction; shoulder injury related to positioning; fat, blood and air clots to other areas of the body like heart, lungs, brain; failure of internal organs such as lungs, kidneys, liver and excessive bleeding. If blood transfusions are necessary, note that transfusions may cause intolerance reactions such as anaphylaxis or other complex reactions. Despite best efforts, the results of surgery might not heal in terms of bone, soft tissues such as skin, fascia, ligaments, and joints. [facility] is an educational center that serves as a training facility for physician assistants, nurses, orthopedic residents and fellows. Residents are physicians who are completing their surgical intensive training following medical school. They assist in the operating room with direct supervision of the attending surgeons. [place] are surgeons who have completed their training and eligible for board certification. They have opted for an elective year of more specialized training in their field. They assist in the operating room under the supervision of the attending surgeons. Physician assistants are medically trained surgical providers who function in the outpatient, inpatient, and operating room setting under the direct supervision of the attending surgeon. [facility] has multiple operating rooms with single and overlapping rooms running daily. They currently function under the required guidelines as produced by the [facility] with regards to the overlapping rooms and will continue to comply with changes to this policy as they occur. The requirements include and are complied with as follows: (1) the critical portions of the overlapping rooms will not occur at the same time, (2) the attending physician will be physically present during the critical portions of the procedure and immediately available during the entire case, and (3) a back-up attending is designated should the primary attending not be immediately available. The patient has had a chance to review all the listed information, has been given print outs detailing this information, and has had all his/her questions answered to their satisfaction. It was my pleasure to have seen and examined Sampson Zamora . In our visit today we have had a chance to go over my understanding of our patient's current condition, the natural course history without intervention and various interventional options. Questions were invited and answered, and the patient wishes to proceed as outlined above. I have seen and examined the patient for 25 minutes and we have spent more than 50% of the time in repeat and detailed counseling about the patient's condition, its natural course history with out and as much as can be predicted with surgery and re-review of various surgical treatment options. In conclusion, Sampson Zamora requested we proceed with the above suggested surgery and are willing to accept risks and limitations of the suggested surgery as nature of the disease process and our best attempts at treatment for the condition. Thank you again for allowing us to be part of your patient's care. Please don't hesitate to contact me if you have any further questions. Signed and authenticated by: José Manuel Pinto [facility] [address] [facility], [address] [address]
[~2020-11-22 10:20] MED LIST: ACETAMINOPHEN TAB 500 MG TAB PO PRN; HYDROmorphone 0.5 MG/0.5 ML SYRINGE IVP PRN; LACTATED RINGERS 1,000 ML IV SCH; LIDOCAINE 1% (10MG/ML) FOR IV START INTRADERMA PRN; MIDAZOLAM 2 MG/2 ML VIAL IV PRN; ONDANSETRON 4 MG/2 ML VIAL IVP PRN
[2020-11-22 11:24] LABS: Glucose,Whole Blood 273 mg/dL (75-99)
[2020-11-22] MEDS ORDERED: MIDAZOLAM 2 MG/2 ML VIAL IVP ONE (12:58)
[2020-11-22] MEDS ORDERED: DEXAMETHASONE SOD PHOSPHATE 4 MG/ML 1 ML VIAL ONE (13:33)
[2020-11-22] MEDS ORDERED: LIDOCAINE 1% INJ 10MG/ML (20 ML MDV) ONE (13:33)
[2020-11-22] MEDS ORDERED: PHENYLEPHRINE-0.9% NACL SYG 1,000 MCG/10 ML SYRINGE ONE (13:33)
[2020-11-22] MEDS ORDERED: ROPIVACAINE 5 MG/ML 30 ML VIAL ONE (13:33)
[2020-11-22] MEDS ORDERED: KETAMINE 10 MG/ML 20 ML VIAL ONE (13:33)
[2020-11-22] MEDS ORDERED: SUCCINYLCHOLINE CHLORIDE VIAL 200 MG/10 ML VIAL IV ONE (13:33)
[2020-11-22] MEDS ORDERED: PROPOFOL 10 MG/ML 20 ML VIAL IV ONE (13:33)
[2020-11-22] MEDS ORDERED: WATER FOR INJECTION, STERILE 10 ML VIAL IV ONE (13:33)
[2020-11-22] MEDS ORDERED: ePHEDrine SULFATE/0.9% NACL/PF 50 MG/5 ML SYRINGE IV ONE (13:33)
[2020-11-22] MEDS ORDERED: fentaNYL (PF) 50 MCG/ML 2 ML AMP ONE (13:33)
[2020-11-22] MEDS ORDERED: LACTATED RINGERS 1,000 ML IV ONE (14:23)
[2020-11-22 15:24] VITALS: RESP 16; TEMP 97.2
--- NOTE | 2020-11-22 15:25 | P.OP ---
Date of Procedure: 11/22/20 Preoperative Diagnosis: 1. Right ankle displaced, comminuted, rotation lateral malleolus fracture Postoperative Diagnosis: 1. Right ankle displaced, comminuted, rotation lateral malleolus fracture Procedure(s) Performed: 1. Open reduction and internal fixation of right lateral malleolus fracture Implants: Synthese 3.5 distal fibular plate Anesthesia: MAC Surgeon: José Manuel Weaver [employer]works Mechanical Designer #1: Afshin Palmer (was present for the entire case and necessary due to the complexity of the case) Estimated Blood Loss (ml): 50 (TT: 39 min) IV fluids (ml): 1,200 Urine output (ml): 0 Pathology: none sent Condition: stable Disposition: PACU Indications for Procedure: 55 yo male presented after ffs with twisting injury to his right ankle and inability to ambulate. He was found to have an ankle fracture and followed up in office. He has been NWB on this and xrays showed a displaced lateral malleolar fracture with comminution and rotation. He elected to undergo surgical fixation of this fracture. He was seen pre operatively as well and risks and benefits discussed again as outlined. All questions answered. he was willing to proceed. Operative Findings: Displaced lateral mal fracture Description of Procedure: The patient was seen and examined in the preoperative area. All preoperative protocols were followed. Informed consent was obtained risks and benefits of the procedure were discussed at length. Risks including bleeding infection damage to the surrounding tissue and risk of reoperation were discussed with the patient. Risk of anesthesia up to and including was a discussed with the patient. These are outlined in the risk reviewed. They were willing to accept these risks and all of the risks of surgery. The patient was given a weight- based dose of antibiotics in the form of Ancef 2 g. The patient was seen and evaluated by the anesthesia team who deemed them fit for surgery. The site was marked, the patient was willing to proceed with the procedure. The patient was transferred to the operative suite by the Department of anesthesia. There were then drifted off to sleep by the department of anesthesia and GETA anesthesia was used. Once adequate anesthesia had been obtained the patient was carefully transferred to the operative bed. All bony prominences were padded accordingly. SCDs were placed on the nonoperative lower extremities. Arms were well padded. Right leg was exposed and placed on bone foam bump was placed in the patient's right hip tourniquet was placed on the patient's right upper thigh he was secured to the table to take safety strap as well as tape. Preoperative briefing was done with the operative team and everyone was ready for the procedure to start. The patients right leg was then prepped and draped in the normal sterile fashion. Timeout was then performed and all parties in agreement with the procedure to be performed. Esmarch was used for exsanguination tourniquet was inflated 280 mmHg by Rodrigo area on the lateral aspect the patient's right fibula was visualized. Skin knife was used to make incision over this area dissection taken down to the fibula a wood handled elevator was then used to clean the periosteum from the fracture site. We then thoroughly irrigated and debrided the fracture site of any hematoma or callus a deformed is allowed for anatomic reduction of the fracture we then used towel clips reduce the fracture to 7 interfrag screw was drilled and a lag by technique from anterior to posterior until the fracture well AP and lateral fluoroscopy confirmed all of these. Once this was accomplished who placed a lateral neutralizing plate. The plate was pinned in position AP lateral fluoroscopy confirmed good position we then placed a shaft screw which allowed for control rotation remove one pin and then drilled the distal locking holes under fluoroscopic guidance these were measured and filled with him place the proximal to shaft screws these were drilled and measured and all had good purchase. We then performed a cotton test which was negative as well as an external rotation stress test under x-ray which was negative for syndesmotic injury at this time. The wound was then copiously irrigated with normal sterile saline. All screws were in good position and had good purchase. The wound was then closed with 2-0 Vicryl followed by 2-0 nylon in a running fashion it was cleaned and dressed sterilely with sterile Adaptic 4 x 4's ABDs and Kerlix is in place and well-padded well molded short leg splint on the right which was then overwrapped with an Rubin wrap. Tourniquet was deflated at 39 minutes. The patient was then transferred back to their hospital bed. There were awakened by department of anesthesia having tolerated the procedure very well with no complications. The patient was then transported to the postoperative care unit in stable condition.
--- NOTE | 2020-11-22 15:36 | P.ANPRN ---
Procedure Note - Anesthesia - Nerve Block Performed Right Popliteal Time Out Performed: Yes Location of Patient: PreOp Indication: Acute Post-Operative Pain, Dx/Pain Location (Right Foot), Requested by Surgeon Specifically requested for management of pain by DrVazquez: José Manuel Weaver Sedation Type: Sedate with meaningful contact maintained Preparation: Sterile Prep Position: Left Lateral Catheter: None Needle Types: Pajunk Needle Gauge: 21 Ultrasound used to visualize needle placement: Yes Ultrasound used to observe medication spread: Yes Injectate: Other (see comment) (30cc and decadron 4mg) Blood Aspirated: No Pain Paresthesia on Injection Noted: No Resistance on Injection: Normal
--- NOTE | 2020-11-22 15:39 | FL ---
Fluoroscopy and limited right ankle HISTORY: Ankle open reduction internal fixation 12 seconds fluoroscopy time supplied to the referring clinician. 4 intraoperative C-arm images docum ent the procedure. See dictated report from orthopedic surgery.
[2020-11-22 15:41] LABS: Glucose,Whole Blood 255 mg/dL (75-99)
[2020-11-22 17:34] VITALS: BP 137/83; PULSE 93
--- NOTE | 2020-11-24 14:39 | CDI ---
Outpatient Documentation Clarification Form Date: 11/24/20 CDS/[employer] Operator Name: Alem Chacon Patient Name: Sampson Zamora Admit Date: 11/22/20 Discharge Date: 11/22/20 ATTENTION: The [employer] Coding Staff appreciate your assistance in clarifying documentation. Please respond to the clarification below the line at the bottom and electronically sign. The [employer] Coding staff will review the response and follow-up if needed. Please note: Queries are made part of the Legal Health Record. If you have any questions, please contact the Director Of Volunteer Services. Dear Dr. Leggett, Please provide clarification of the location of the popliteal nerve block. Greatest specificity is required for medical necessity support. Please reference the following: A popliteal block procedure note, without a description of the anatomy is not helpful in determining the correct code to report. A popliteal fossa injection is reported with CPT code 11842 (sciatic nerve), whereas a saphenous popliteal is reported with CPT code 51423 (other peripheral nerve block). Please clarify. It is "saphenous popliteal block" Thank you MTDJose
== END 2020-11-22 17:38 | disposition home or self-care (01) ==
LOC: OR 10:20
PROVIDERS: ATTEND Orthopaedic Surgery
DX: S82.61XA Displaced fracture of lateral malleolus of right fibula, initial encounter for closed fracture (principal); W18.30XA Fall on same level, unspecified, initial encounter; Y93.9 Activity, unspecified; Y92.002 Bathroom of unspecified non-institutional (private) residence as the place of occurrence of the external cause; E11.9 Type 2 diabetes mellitus without complications; K21.9 Gastro-esophageal reflux disease without esophagitis; H91.90 Unspecified hearing loss, unspecified ear; E78.5 Hyperlipidemia, unspecified; I10 Essential (primary) hypertension; M19.90 Unspecified osteoarthritis, unspecified site; Z87.442 Personal history of urinary calculi; Z90.89 Acquired absence of other organs; Z87.891 Personal history of nicotine dependence; Z80.9 Family history of malignant neoplasm, unspecified; Z80.1 Family history of malignant neoplasm of trachea, bronchus and lung; F98.8 Other specified behavioral and emotional disorders with onset usually occurring in childhood and adolescence; F31.9 Bipolar disorder, unspecified; Z98.890 Other specified postprocedural states; Z79.4 Long term (current) use of insulin; Z79.899 Other long term (current) drug therapy; Z88.5 Allergy status to narcotic agent
CPT/HCPCS: 27792; 64450; 76942; 73600; C1713; J2250; J0330; J1100; J0690; J2405; J2001; J3010; J2795; J2370; J2704; 64445; 64447

== ENCOUNTER → 2020-12-01 | Outpatient (CLI) | payer MEDICARE, OTHER ==
[2020-12-01 23:34] LABS: Hemoglobin A1C 9.3 % (4.0-6.0)
[2020-12-02 18:36] LABS: Anion Gap 17.9 mmol/L (4.00-12.00); BUN/Creat Ratio 25.71 Ratio (12.00-20.00); Carbon Dioxide 21.1 mmol/L (21.6-31.8); Potassium 3.9 mmol/L (3.5-5.5)
== END | disposition home or self-care (01) ==
LOC: LABWHC1 15:03
PROVIDERS: ATTEND Internal Medicine
DX: E11.9 Type 2 diabetes mellitus without complications (principal)
CPT/HCPCS: 36415; 80048; 83036

== ENCOUNTER 2020-12-07 13:20 | Inpatient (IN) | payer MEDICARE, OTHER ==
[2020-12-09 07:42] VITALS: BP 123/73; PULSE 54; RESP 18; TEMP 98
== END 2020-12-09 14:04 | disposition home or self-care (01) | DRG 299 ==
LOC: EC 13:20 → 4SSUR 16:50
PROVIDERS: ADMIT Hospitalist; ATTEND Hospitalist
DX: T81.718A Complication of other artery following a procedure, not elsewhere classified, initial encounter (principal); J96.01 Acute respiratory failure with hypoxia; T84.81XA Embolism due to internal orthopedic prosthetic devices, implants and grafts, initial encounter; G89.29 Other chronic pain; E11.9 Type 2 diabetes mellitus without complications; E66.9 Obesity, unspecified; I07.1 Rheumatic tricuspid insufficiency; E78.5 Hyperlipidemia, unspecified; F31.9 Bipolar disorder, unspecified; M54.9 Dorsalgia, unspecified; H91.90 Unspecified hearing loss, unspecified ear; W19.XXXS Unspecified fall, sequela; I11.9 Hypertensive heart disease without heart failure; S82.891S Other fracture of right lower leg, sequela; K21.9 Gastro-esophageal reflux disease without esophagitis; N40.0 Benign prostatic hyperplasia without lower urinary tract symptoms; Z20.822 Contact with and (suspected) exposure to COVID-19; Z79.01 Long term (current) use of anticoagulants; Z79.82 Long term (current) use of aspirin; Z79.899 Other long term (current) drug therapy; Z80.1 Family history of malignant neoplasm of trachea, bronchus and lung; Z87.442 Personal history of urinary calculi; Z87.891 Personal history of nicotine dependence; Z68.37 Body mass index [BMI] 37.0-37.9, adult; Z88.5 Allergy status to narcotic agent; Z90.89 Acquired absence of other organs
CPT/HCPCS: 36415; 71046; 71275; 80048; 80053; 80306; 80320; 81003; 82140; 83605; 83735; 84484; 85025; 85379; 85610; 85730; 87635; 93005; 93306; 93970; 94760; 96360; 96361; 99291

== ENCOUNTER 2021-03-03 01:29 | Inpatient (IN) | payer MEDICARE, OTHER ==
--- NOTE | 2021-03-03 02:01 | ED ---
Chest Pain HPI - General Chief Complaint: Chest Pain Stated Complaint: Chest Pain, SOB Time Seen by Provider: 03/03/21 01:34 Source: patient, RN notes reviewed, old records reviewed Mode of arrival: ambulatory Limitations: no limitations - History of Present Illness Initial Comments: This is a 55-year-old male to the emergency department today. Patient has history of diabetes and PE coming in with chest pain and shortness of breath. Patient does feel weak mildly dizzy and his feet. No history of heart disease. MD Complaint: chest pain, other (Shortness of breath and dizziness) -: hour(s) Onset: during rest, during exertion Pain Location: substernal Pain Radiation: none Severity: mild Severity scale (1-10): 2 Quality: aching Consistency: constant Improves With: nothing Anginal Symptoms: dyspnea Other Symptoms: palpitations Treatments Prior to Arrival: none - Related Data Home Medications Medication Instructions Recorded Confirmed Enalapril [Vasotec] 10 mg PO HS 11/17/14 12/07/20 Gabapentin [Neurontin] 900 mg PO TID 11/17/14 12/07/20 Baclofen [Lioresal] 20 mg PO TID 06/26/20 12/07/20 Calcipotriene [Dovonex] 1 applic TOPICAL BID 06/26/20 12/07/20 Dextroamphetamine/Amphetamine 20 mg PO DAILY 06/26/20 12/07/20 [Dextroamp-Amphetamin 20 mg Tab] FLUoxetine HCL 40 mg PO HS 06/26/20 12/07/20 Insulin Glargine,Hum.rec.anlog 120 units SQ BID 06/26/20 12/07/20 [Dara Wilson] Multivitamins, Thera [Multivitamin 1 tab PO DAILY 06/26/20 12/07/20 (formulary)] OLANZapine [ZyPREXA] 10 mg PO DAILY 06/26/20 12/07/20 [place]-3 Acid Ethyl Esters [Lovaza] 2 gm PO BID 06/26/20 12/07/20 Omeprazole 20 mg PO BID 06/26/20 12/07/20 Oxybutynin Chloride 5 mg PO BID 06/26/20 12/07/20 Rosuvastatin [Crestor] 10 mg PO DAILY 06/26/20 12/07/20 Tamsulosin HCl [Flomax] 0.4 mg PO DAILY 06/26/20 12/07/20 Ibuprofen [Motrin] 800 mg PO Q8H PRN 11/21/20 12/07/20 Aspirin EC [Ecotrin] 325 mg PO DAILY 12/07/20 12/07/20 Empagliflozin/Linagliptin 1 tab PO DAILY 12/07/20 12/07/20 [Glyxambi 25 mg-5 mg Tablet] HYDROcodone/APAP 7.5-325MG [[place] 1 tab PO Q6H PRN 12/07/20 12/07/20 7.5-325] Previous Rx's Medication Instructions Recorded Docusate [Colace] 100 mg PO DAILY #30 capsule 11/22/20 Apixaban [Eliquis Starter Pack 0 mg PO DIRECTED 30 Days #1 pack 12/08/20 (for VTE)] Allergies Allergy/AdvReac Type Severity Reaction Status Date / Time codeine AdvReac Nausea & Verified 03/03/21 01:38 Vomiting Review of Systems ROS Statement: Those systems with pertinent positive or pertinent negative responses have been documented in the HPI. ROS Other: All systems not noted in ROS Statement are negative. EKG Findings - EKG Comments: EKG Findings:: EKG is sinus rhythm 70 UT 182 QRS 76 QTC 384 Past Medical History Past Medical History: Diabetes Mellitus, Hearing Disorder / Deafness, Osteoarthritis (OA) Additional Past Medical History / Comment(s): KIDNEY STONES History of Any Multi-Drug Resistant Organisms: None Reported Past Surgical History: Orthopedic Surgery, Tonsillectomy Additional Past Surgical History / Comment(s): Nerve stimulator, foot and ankle surgery right side Past Anesthesia/Blood Transfusion Reactions: No Reported Reaction Past Psychological History: Bipolar Smoking Status: Former smoker Past Alcohol Use History: None Reported Past Drug Use History: None Reported - Past Family History Mother Family Medical History: Cancer Father Family Medical History: Cancer Additional Family Medical History / Comment(s): LUNG CANCER General Exam General appearance: alert, in no apparent distress Head exam: Present: atraumatic, normocephalic, normal inspection Eye exam: Present: normal appearance, PERRL, EOMI. Absent: scleral icterus, conjunctival injection, periorbital swelling ENT exam: Present: normal exam, mucous membranes moist Neck exam: Present: normal inspection. Absent: tenderness, meningismus, lymphadenopathy Respiratory exam: Present: normal lung sounds bilaterally. Absent: respiratory distress, wheezes, rales, rhonchi, stridor Cardiovascular Exam: Present: regular rate, normal rhythm, normal heart sounds. Absent: systolic murmur, diastolic murmur, rubs, gallop, clicks GI/Abdominal exam: Present: soft, normal bowel sounds. Absent: distended, tenderness, guarding, rebound, rigid Extremities exam: Present: normal inspection, full ROM, normal capillary refill. Absent: tenderness, pedal edema, joint swelling, calf tenderness Back exam: Present: normal inspection Neurological exam: Present: alert, oriented X3, CN II-XII intact Psychiatric exam: Present: normal affect, normal mood Skin exam: Present: warm, dry, intact, normal color. Absent: rash Course Vital Signs 03/03/21 03/03/21 03/03/21 01:33 02:15 05:44 Temperature 98 F Pulse Rate 76 74 75 Respiratory 19 16 16 Rate Blood Pressure 149/87 129/77 135/78 O2 Sat by Pulse 94 L 95 94 L Oximetry - Reevaluation(s) Reevaluation #1: 03/03/21 02:32 Medical record is reviewed Reevaluation #2: 03/03/21 05:46 Patient removed from oxygen, oxygen continually jobs mid to high 80s, continues to state that with exertion is severely short of breath Chest Pain MDM - MDM 55 male to the emergency department for evaluation patient De presents today for evaluation of shortness of breath. Patient does have persistent hypoxia in the ER just recovered from PE CTA is currently negative for PE, patient be admitted for other cause of hypoxia Disposition Clinical Impression: Hypoxia Disposition: ADMITTED IP TO THIS HOSP Condition: Good Is patient prescribed a controlled substance at d/c from ED?: No Referrals: Oseas Veras MD [Primary Care Provider] - 1-2 days
[2021-03-03 02:34] LABS: Basophils # (A) 0.1 k/uL (0-0.2); Basophils % (A) 1 %; Eosinophils # (A) 0.2 k/uL (0-0.7); Eosinophils % (A) 3 %; HCT 46.8 % (39.0-53.0); HGB 15.6 gm/dL (13.0-17.5); Hypochromasia Slight; Lymphocytes # (A) 2.3 k/uL (1.0-4.8); Lymphocytes % (A) 26 %; MCH 30.2 pg (25.0-35.0); MCHC 33.4 g/dL (31.0-37.0); MCV 90.4 fL (80.0-100.0); Mean Platelet Volume 7.1; Monocytes # (A) 0.6 k/uL (0-1.0); Monocytes % (A) 7 %; Neutrophils # (A) 5.4 k/uL (1.3-7.7); Neutrophils % (A) 61 %; Platelet Count 275 k/uL (150-450); Poikilocytosis Slight; RBC 5.18 m/uL (4.30-5.90); RDW 14.6 % (11.5-15.5); WBC 8.8 k/uL (3.8-10.6)
[2021-03-03 02:45] LABS: ALT 25 U/L (4-49); AST 20 U/L (17-59); African American GFR (CKD) >90 (>60 ml/min/1.73 sqM); Albumin 4.1 g/dL (3.5-5.0); Alkaline Phosphatase 94 U/L (38-126); Anion Gap 10 mmol/L; Blood Urea Nitrogen 33 mg/dL (9-20); Calcium 9.6 mg/dL (8.4-10.2); Carbon Dioxide 23 mmol/L (22-30); Chloride 103 mmol/L (98-107); Glucose 162 mg/dL (74-99); Lipase 239 U/L (23-300); Magnesium 1.8 mg/dL (1.6-2.3); Non-African American GFR(CKD) >90 (>60 ml/min/1.73 sqM); Potassium 4.3 mmol/L (3.5-5.1); Sodium 136 mmol/L (137-145); Total Bilirubin 0.2 mg/dL (0.2-1.3); Total Protein 6.6 g/dL (6.3-8.2)
[2021-03-03 02:56] LABS: INR 0.9 (<1.2); Partial Thromboplastin Time 23.6 sec (22.0-30.0); Prothrombin Time 10.1 sec (9.0-12.0)
--- NOTE | 2021-03-03 03:42 | XR ---
EXAMINATION TYPE: XR chest 1V DATE OF EXAM: 03/03/2021 COMPARISON: 12/07/2020 HISTORY: Chest pain TECHNIQUE: FINDINGS: Heart and mediastinum are normal. Lungs are clear. Diaphragm is normal. Bony thorax is inta ct. There are chest leads. There is neural stimulator in the thoracic spine. IMPRESSION: No active cardiopulmonary disease. No change.
--- NOTE | 2021-03-03 05:05 | CT ---
EXAMINATION TYPE: CT angio chest DATE OF EXAM: 03/03/2021 COMPARISON: 12/07/2020 HISTORY: hypoxia CT DLP: 812.1 mGycm Automated exposure control for dose reduction was used. CONTRAST: Performed with IV Contrast, patient injected with 100 mL of Isovue 370. There are 3-D post processed images. The lungs are clear of consolidation. There is no evidence of a pulmonary mass. There is no pleural e ffusion or pneumothorax. There is no mediastinal adenopathy. There are no hilar masses. Thoracic aort a is intact. There is no aneurysm or dissection. There is normal contrast opacification of the pulmonary arteries. There are no filling defects. There is 3 cm cortical cyst upper pole right kidney. Lasix spine is intact. The ribs appear intact. Sternu m appears intact IMPRESSION: Negative exam. No evidence of pulmonary embolism.
[2021-03-03] MEDS ORDERED: IPRATROPIUM-ALBUTEROL 3 ML NEB INHALATION STA (05:23)
[2021-03-03] MEDS: IPRATROPIUM-ALBUTEROL 3 ML NEB INHALATION PRN ×2 (06:10→20:17)
[2021-03-03 10:15] LABS: Glucose,Whole Blood 140 mg/dL (75-99)
[2021-03-03] MEDS: SODIUM CHLORIDE 0.9% 1,000 ML IV SCH (11:08)
--- NOTE | 2021-03-03 11:40 | P.CNPUL ---
History of Present Illness Consult date: 03/03/21 Requesting physician: Igor Naylor Reason for consult: dyspnea, chest pain, hypoxemia, pulmonary embolism Chief complaint: Shortness of breath and chest pain. History of present illness: Pulmonary consult dated 03/03/2021. 55-year-old male, who was seen in the emergency room, on 03/03/2021. The patient came into the emergency room, complaining of shortness of breath and chest pain. The symptoms began about a day or so prior to admission. The patient was seen by our group back in November, for a pulmonary embolism. The patient had a chest x-ray on this evaluation, which is normal. In addition, he had a CT angiogram which was negative for any pulmonary disease, and also was negative for pulmonary embolism. The patient has been on blood thinners since early November. We thought he had a provoked a blood clot, and we recommended 3 months of therapy. He is almost completed 3 months of therapy. The patient smoked for one year many years back. Has no known history of any lung disease. As mentioned earlier, his chest x-ray was normal. The patient did get a breathing treatment I asked whether or not the breathing treatments seem to make a difference, and he said no. I told him, that he should see me in the office in follow-up at which time, we will do a pulmonary function test to determine whether or not there is any obstructive lung disease. The other issue with him as possible sleep apnea syndrome. Patient also be evaluated. From the pulmonary perspective, the patient could be discharged from the emergency room, if it was okay with the primary service. CBC is completely normal. PT, INR, and PTT are normal. Sodium 136, potassium 4.3, chlorides 103, CO2 23, anion gap 10, BUN 33, and creatinine 0.76. Troponin was normal. N-terminal proBNP was normal. Review of Systems REVIEW OF SYSTEMS: CONSTITUTIONAL: [Negative.] NEUROLOGIC: [ Negative.] HEENT: [ Negative.] CARDIAC: Chest pain. PULMONARY: Shortness of breath. GI: [Negative.] : [Negative.] RHEUMATOLOGIC: [ Negative.] IMMUNOLOGIC: [ Negative.] ENDOCRINE: [Negative. ] DERMATOLOGIC: [Negative.] Past Medical History Past Medical History: Diabetes Mellitus, Hearing Disorder / Deafness, Osteoarthritis (OA) Additional Past Medical History / Comment(s): KIDNEY STONES History of Any Multi-Drug Resistant Organisms: None Reported Past Surgical History: Orthopedic Surgery, Tonsillectomy Additional Past Surgical History / Comment(s): Nerve stimulator, foot and ankle surgery right side Past Anesthesia/Blood Transfusion Reactions: No Reported Reaction Past Psychological History: Bipolar Smoking Status: Former smoker Past Alcohol Use History: None Reported Past Drug Use History: None Reported - Past Family History Mother Family Medical History: Cancer Father Family Medical History: Cancer Additional Family Medical History / Comment(s): LUNG CANCER Medications and Allergies Home Medications Medication Instructions Recorded Confirmed Type Enalapril [Vasotec] 10 mg PO HS 11/17/14 03/03/21 History Gabapentin [Neurontin] 900 mg PO TID 11/17/14 03/03/21 History Baclofen [Lioresal] 20 mg PO TID 06/26/20 03/03/21 History Dextroamphetamine/Amphetamine 10 mg PO BID 06/26/20 03/03/21 History [Dextroamp-Amphetamin 20 mg Tab] FLUoxetine HCL 40 mg PO HS 06/26/20 03/03/21 History Insulin Glargine,Hum.rec.anlog 120 units SQ BID 06/26/20 03/03/21 History [[place] Max Solostar] Multivitamins, Thera [Multivitamin 1 tab PO DAILY 06/26/20 03/03/21 History (formulary)] OLANZapine [ZyPREXA] 10 mg PO DAILY 06/26/20 03/03/21 History [place]-3 Acid Ethyl Esters [Lovaza] 2 gm PO BID 06/26/20 03/03/21 History Omeprazole 20 mg PO BID 06/26/20 03/03/21 History Oxybutynin Chloride 5 mg PO BID 06/26/20 03/03/21 History Rosuvastatin [Crestor] 10 mg PO DAILY 06/26/20 03/03/21 History Tamsulosin HCl [Flomax] 0.4 mg PO DAILY 06/26/20 03/03/21 History Ibuprofen [Motrin] 800 mg PO Q8H 11/21/20 03/03/21 History Empagliflozin/Linagliptin 1 tab PO DAILY 12/07/20 03/03/21 History [Glyxambi 25 mg-5 mg Tablet] Apixaban [Eliquis] 5 mg PO BID 03/03/21 03/03/21 History Allergies Allergy/AdvReac Type Severity Reaction Status Date / Time codeine AdvReac Nausea & Verified 03/03/21 07:36 Vomiting Physical Exam Osteopathic Statement: *. No significant issues noted on an osteopathic structural exam other than those noted in the History and Physical/Consult. Vitals: Vital Signs Temp Pulse Resp BP Pulse Ox 03/03/21 07:15 97.9 F 73 16 131/85 97 03/03/21 06:20 74 03/03/21 06:12 74 03/03/21 05:44 75 16 135/78 94 L 03/03/21 02:15 74 16 129/77 95 03/03/21 01:33 98 F 76 19 149/87 94 L Intake and Output 03/02/21 03/03/21 03/03/21 22:59 06:59 14:59 Other: Weight 113.398 kg No acute distress, oriented 3. The patient is currently on 2 L nasal cannula. Saturations are in the mid 90s. HEENT examination is grossly unremarkable. Neck supple. Full range of motion. No adenopathy thyromegaly or neck vein distention. Cardiovascular examination reveals regular rhythm rate. S1-S2 normal. No S3 or S4. No discernible murmur noted. Heart rate is 73 bpm. Lungs reveal clear breath sounds. Breath sounds are equal bilaterally. No adventitious lung sounds including wheezes rhonchi or crackles. Abdomen soft bowel sounds are heard. No masses or tenderness. Extremities are intact. No cyanosis clubbing or edema. Skin is without rash or lesion. Neurologic examination is brief but nonfocal. Results - Laboratory Findings CBC and BMP: 03/03/21 02:12 03/03/21 02:12 PT/INR, D-dimer PT 10.1 sec (9.0-12.0) 03/03/21 02:12 INR 0.9 (<1.2) 03/03/21 02:12 Abnormal lab findings: Abnormal Labs 03/03/21 03/03/21 02:12 10:14 Sodium 136 L BUN 33 H Glucose 162 H POC Glucose (mg/dL) 140 H - Diagnostic Findings Chest x-ray: image reviewed CT scan - chest: image reviewed Assessment and Plan Assessment: Shortness of breath, of unclear etiology. Chest x-ray was normal. CT angiogram revealed no residual clot. Recent episode of pulmonary embolism, November,, status post nearly 3 months of treatment with Eliquis. History of hyperlipidemia. Rule out sleep apnea syndrome. History of diabetes mellitus. History of hypertension. Obesity. History of osteoarthritis. History of kidney stones. Plan: Plan dated 03/03/2021. The patient will need outpatient follow-up in my office. He will need a complete pulmonary function test. Additional recommendations and suggestions are forthcoming. His chest x-ray was normal. CT angiogram was normal. There was no residual clot. He should complete a full 3 months of treatment with Eliquis. The patient could be discharged if okay with the primary. From the pulmonary standpoint, he is stable. Time with Patient: Greater than 30
[2021-03-03] MEDS ORDERED: ACETAMINOPHEN TAB 500 MG TAB PO PRN (14:00)
[2021-03-03 17:01] LABS: Glucose,Whole Blood 77 mg/dL (75-99)
[2021-03-03] MEDS: GABAPENTIN 300 MG CAP PO SCH ×2 (17:08→22:05)
[2021-03-03] MEDS: PANTOPRAZOLE 40 MG TABLET PO SCH (17:08)
[2021-03-03] MEDS: BACLOFEN 10 MG TAB PO SCH ×2 (17:08→22:05)
--- NOTE | 2021-03-03 19:26 | P.HPIM ---
History of Present Illness H&P Date: 03/03/21 Chief Complaint: Chest pain/shortness of breath 55-year-old male, came into the emergency room, complaining of shortness of breath and chest pain. The symptoms began about a day or so prior to admission. The patient was seen by our group back in November, for a pulmonary embolism. The patient had a chest x-ray on this evaluation, which is normal. In addition, he had a CT angiogram which was negative for any pulmonary disease, and also was negative for pulmonary embolism. The patient has been on blood thinners since early November. We thought he had a provoked a blood clot, and we recommended 3 months of therapy. He is almost completed 3 months of therapy. The patient smoked for one year many years back. Has no known history of any lung disease. As mentioned earlier, his chest x-ray was normal. The patient did get a breathing treatment I asked whether or not the breathing treatments seem to make a difference, and he said no. I told him, that he should see me in the office in follow-up at which time, we will do a pulmonary function test to determine whether or not there is any obstructive lung disease. The other issue with him as possible sleep apnea syndrome. Patient also be evaluated. From the pulmonary perspective, the patient could be discharged from the emergency room, if it was okay with the primary service. CBC is completely normal. PT, INR, and PTT are normal. Sodium 136, potassium 4.3, chlorides 103, CO2 23, anion gap 10, BUN 33, and creatinine 0.76. Troponin was normal. N-terminal proBNP was normal. Review of Systems REVIEW OF SYSTEMS: CONSTITUTIONAL: No fever, no malaise, no fatigue. HEENT: No recent visual problems or hearing problems. Denied any sore throat. CARDIOVASCULAR: No chest pain, orthopnea, PND, no palpitations, no syncope. PULMONARY: No shortness of breath, no cough, no hemoptysis. GASTROINTESTINAL: No diarrhea, no nausea, no vomiting, no abdominal pain. NEUROLOGICAL: No headaches, no weakness, no numbness. HEMATOLOGICAL: Denies any bleeding or petechiae. GENITOURINARY: Denies any burning micturition, frequency, or urgency. MUSCULOSKELETAL/RHEUMATOLOGICAL: Denies any joint pain, swelling, or any muscle pain. ENDOCRINE: Denies any polyuria or polydipsia. The rest of the 14-point review of systems is negative. Past Medical History Past Medical History: Diabetes Mellitus, Hearing Disorder / Deafness, Osteoarthritis (OA) Additional Past Medical History / Comment(s): KIDNEY STONES History of Any Multi-Drug Resistant Organisms: None Reported Past Surgical History: Orthopedic Surgery, Tonsillectomy Additional Past Surgical History / Comment(s): Nerve stimulator, foot and ankle surgery right side Past Anesthesia/Blood Transfusion Reactions: No Reported Reaction Past Psychological History: Bipolar Smoking Status: Former smoker Past Alcohol Use History: None Reported Past Drug Use History: None Reported - Past Family History Mother Family Medical History: Cancer Father Family Medical History: Cancer Additional Family Medical History / Comment(s): LUNG CANCER Medications and Allergies Home Medications Medication Instructions Recorded Confirmed Type Enalapril [Vasotec] 10 mg PO HS 11/17/14 03/03/21 History Gabapentin [Neurontin] 900 mg PO TID 11/17/14 03/03/21 History Baclofen [Lioresal] 20 mg PO TID 06/26/20 03/03/21 History Dextroamphetamine/Amphetamine 10 mg PO BID 06/26/20 03/03/21 History [Dextroamp-Amphetamin 20 mg Tab] FLUoxetine HCL 40 mg PO HS 06/26/20 03/03/21 History Insulin Glargine,Hum.rec.anlog 120 units SQ BID 06/26/20 03/03/21 History [T[place]jeo Max Solostar] Multivitamins, Thera [Multivitamin 1 tab PO DAILY 06/26/20 03/03/21 History (formulary)] OLANZapine [ZyPREXA] 10 mg PO DAILY 06/26/20 03/03/21 History [place]-3 Acid Ethyl Esters [Lovaza] 2 gm PO BID 06/26/20 03/03/21 History Omeprazole 20 mg PO BID 06/26/20 03/03/21 History Oxybutynin Chloride 5 mg PO BID 06/26/20 03/03/21 History Rosuvastatin [Crestor] 10 mg PO DAILY 06/26/20 03/03/21 History Tamsulosin HCl [Flomax] 0.4 mg PO DAILY 06/26/20 03/03/21 History Ibuprofen [Motrin] 800 mg PO Q8H 11/21/20 03/03/21 History Empagliflozin/Linagliptin 1 tab PO DAILY 12/07/20 03/03/21 History [Glyxambi 25 mg-5 mg Tablet] Apixaban [Eliquis] 5 mg PO BID 03/03/21 03/03/21 History Allergies Allergy/AdvReac Type Severity Reaction Status Date / Time codeine AdvReac Nausea & Verified 03/03/21 07:36 Vomiting Physical Exam Vitals: Vital Signs Temp Pulse Resp BP Pulse Ox 03/03/21 12:14 98 F 79 18 117/76 100 03/03/21 07:15 97.9 F 73 16 131/85 97 03/03/21 06:20 74 03/03/21 06:12 74 03/03/21 05:44 75 16 135/78 94 L 03/03/21 02:15 74 16 129/77 95 03/03/21 01:33 98 F 76 19 149/87 94 L Intake and Output 03/02/21 03/03/21 03/03/21 22:59 06:59 14:59 Other: Weight 113.398 kg - Constitutional General appearance: Present: average body habitus, cooperative, no acute distress - EENT Eyes: Present: anicteric sclerae, EOMI, PERRLA, normal appearance ENT: Present: hearing grossly normal, normal oropharynx Ears: bilateral: normal - Neck Neck: Present: normal ROM. Absent: lymphadenopathy, rigidity, thyromegaly Carotids: negative: bruit present Thyroid: bilateral: normal size, negative: enlarged, nodule - Respiratory Respiratory: bilateral: CTA, negative: rales, rhonchi, wheezing - Cardiovascular Rhythm: regular Heart sounds: normal: S1, S2 Abnormal Heart Sounds: Absent: systolic murmur, diastolic murmur - Gastrointestinal General gastrointestinal: Present: normal bowel sounds, soft. Absent: distended, organomegaly, tenderness - Genitourinary Genitourinary Comment(s): deferred - Integumentary Integumentary: Present: normal turgor. Absent: jaundiced, rash, ulcer - Neurologic Neurologic: Present: CNII-XII intact. Absent: focal deficits - Musculoskeletal Musculoskeletal: Present: gait normal, strength equal bilaterally - Psychiatric Psychiatric: Present: A&O x's 3, appropriate affect, intact judgment & insight Results CBC & Chem 7: 03/03/21 02:12 03/03/21 02:12 Labs: Abnormal Lab Results - Last 24 Hours (Table) 03/03/21 03/03/21 Range/Units 02:12 10:14 Sodium 136 L (137-145) mmol/L BUN 33 H (9-20) mg/dL Glucose 162 H (74-99) mg/dL POC Glucose (mg/dL) 140 H (75-99) mg/dL Assessment and Plan Assessment: 1. Acute hypoxemia; patient has been evaluated by pulmonary service; chest x- ray and CT angiogram is unremarkable; pulmonary recommending to complete 3 months treatment of anticoagulation and possible sleep studies as outpatient along with complete PFTs 2. Recent pulmonary embolism; continue anticoagulation and complete 3 months of treatment 3. Hyperlipidemia; continue home statin therapy 4. Diabetes mellitus; monitor Accu-Cheks before meals and at bedtime with insulin sliding scale 5. Hypertension; stable 6. Obesity; counseling done on need for weight reduction DVT prophylaxis; SCDs/systemic anticoagulation CODE STATUS; full code
[2021-03-03 20:11] LABS: Glucose,Whole Blood 67 mg/dL (75-99)
[2021-03-03 20:30] LABS: Glucose,Whole Blood 77 mg/dL (75-99)
[2021-03-03] MEDS: APIXABAN 5 MG TAB PO SCH (20:34)
[2021-03-03] MEDS: OXYBUTYNIN CHLORIDE 5 MG TAB PO SCH (20:34)
[2021-03-03] MEDS: INSULIN DETEMIR (LEVEMIR) 100 UNIT/ML SYR SQ SCH (20:41)
[2021-03-03] MEDS ORDERED: NON FORMULARY DRUG (Dextroamphetamine/Amphetamine [Dextroamp-Amphetamin 20 Mg Tab] 20 MG T PO SCH (21:00)
[2021-03-03] MEDS ORDERED: FLUoxetine HCL 20 MG CAP PO SCH (21:00)
[2021-03-03] MEDS ORDERED: lisinopriL 20 MG TAB PO SCH (21:00)
[2021-03-03] MEDS ORDERED: NON FORMULARY DRUG (Omega-3 Acid Ethyl Esters [Lovaza] 1 GM Capsule) PO SCH (21:00)
[2021-03-04] MEDS: SODIUM CHLORIDE 0.9% 1,000 ML IV SCH (05:36)
[2021-03-04 07:10] VITALS: RESP 20
[2021-03-04 07:23] LABS: Glucose,Whole Blood 118 mg/dL (75-99)
[2021-03-04] MEDS ORDERED: SODIUM CHLORIDE 0.9% 500 ML 250 ML IV ONE (08:25)
[2021-03-04] MEDS ORDERED: TAMSULOSIN 0.4 MG CAP.ER.24H PO SCH (09:00)
[2021-03-04] MEDS ORDERED: ATORVASTATIN 20 MG TAB PO SCH (09:00)
[2021-03-04] MEDS ORDERED: OLANZapine 10 MG TAB PO SCH (09:00)
[2021-03-04] MEDS ORDERED: MULTIVITAMINS, THERA 1 EACH TAB PO SCH (09:00)
[2021-03-04] MEDS: OXYBUTYNIN CHLORIDE 5 MG TAB PO SCH (09:22)
[2021-03-04] MEDS: BACLOFEN 10 MG TAB PO SCH ×2 (09:22→16:50)
[2021-03-04] MEDS: PANTOPRAZOLE 40 MG TABLET PO SCH (09:22)
[2021-03-04] MEDS: APIXABAN 5 MG TAB PO SCH (09:22)
[2021-03-04] MEDS: GABAPENTIN 300 MG CAP PO SCH ×2 (09:22→16:50)
[2021-03-04] MEDS: INSULIN DETEMIR (LEVEMIR) 100 UNIT/ML SYR SQ SCH (09:23)
[2021-03-04 11:13] LABS: Glucose,Whole Blood 116 mg/dL (75-99)
[2021-03-04 12:36] LABS: Basophils # (A) 0.1 k/uL (0-0.2); Basophils % (A) 1 %; Eosinophils # (A) 0.2 k/uL (0-0.7); Eosinophils % (A) 1 %; HGB 15.8 gm/dL (13.0-17.5); Lymphocytes # (A) 2.5 k/uL (1.0-4.8); Lymphocytes % (A) 22 %; MCH 29.7 pg (25.0-35.0); MCV 90.1 fL (80.0-100.0); Mean Platelet Volume 6.9; Monocytes # (A) 0.8 k/uL (0-1.0); Monocytes % (A) 7 %; Neutrophils # (A) 7.5 k/uL (1.3-7.7); Neutrophils % (A) 66 %; Platelet Count 302 k/uL (150-450); RBC 5.32 m/uL (4.30-5.90); RDW 13.4 % (11.5-15.5); WBC 11.3 k/uL (3.8-10.6)
[2021-03-04 12:43] LABS: African American GFR (CKD) 48 (>60 ml/min/1.73 sqM); Anion Gap 9 mmol/L; Blood Urea Nitrogen 37 mg/dL (9-20); Calcium 9.4 mg/dL (8.4-10.2); Carbon Dioxide 25 mmol/L (22-30); Chloride 101 mmol/L (98-107); Glucose 104 mg/dL (74-99); Non-African American GFR(CKD) 41 (>60 ml/min/1.73 sqM); Potassium 4.4 mmol/L (3.5-5.1); Sodium 135 mmol/L (137-145)
[2021-03-04 13:43] VITALS: TEMP 98.3
--- NOTE | 2021-03-04 13:45 | P.PN ---
Subjective Progress Note Date: 03/04/21 55-year-old male, who was seen in the emergency room, on 03/03/2021. The patient came into the emergency room, complaining of shortness of breath and chest pain. The symptoms began about a day or so prior to admission. The patient was seen by our group back in November, for a pulmonary embolism. The patie nt had a chest x-ray on this evaluation, which is normal. In addition, he had a CT angiogram which was negative for any pulmonary disease, and also was negative for pulmonary embolism. The patient has been on blood thinners since early November. We thought he had a provoked a blood clot, and we recommended 3 months of therapy. He is almost completed 3 months of therapy. The patient smoked for one year many years back. Has no known history of any lung disease. As mentioned earlier, his chest x-ray was normal. The patient did get a breathing treatment I asked whether or not the breathing treatments seem to make a difference, and he said no. I told him, that he should see me in the office in follow-up at which time, we will do a pulmonary function test to determine whether or not there is any obstructive lung disease. The other issue with him as possible sleep apnea syndrome. Patient also be evaluated. From the pulmonary perspective, the patient could be discharged from the emergency room, if it was okay with the primary service. CBC is completely normal. PT, INR, and PTT are normal. Sodium 136, potassium 4.3, chlorides 103, CO2 23, anion gap 10, BUN 33, and creatinine 0.76. Troponin was normal. N-terminal proBNP was normal. The patient is seen today 03/04/2021 in follow-up on the regular medical floor. He is currently resting comfortably in bed. Awake and alert in no acute distress. Breathing easier today compared to yesterday. 18 and O2 saturations in the 90s on room air. He's been afebrile. White count 11.3. Hemoglobin 15.8. Sodium 135. Potassium 4.4. Creatinine 1.81. Glucose 116. He remains on DuoNeb inhalations. Anticoagulated with Eliquis. Objective - Vital Signs Vital signs: Vital Signs Temp 97.9 F 03/04/21 07:05 Pulse 87 03/04/21 10:21 Resp 20 03/04/21 07:05 BP 92/63 03/04/21 10:21 Pulse Ox 96 03/04/21 13:37 Intake & Output 03/03/21 03/04/21 03/04/21 18:59 06:59 18:59 Intake Total 240 Output Total 1200 Balance -1200 240 Weight 113.398 kg Intake: Intake, IV Titration 240 Amount Sodium Chloride 0.9% 1, 240 000 ml @ 20 mls/hr IV . Q24H LAN Rx#:[id number] Output: Urine 1200 Other: Voiding Method Toilet # Voids 1 - Exam GENERAL EXAM: Alert, these 55-year-old male patient, on room air comfortable in no apparent distress. HEAD: Normocephalic. EYES: Normal reaction of pupils, equal size. NOSE: Clear with pink turbinates. THROAT: No erythema or exudates. NECK: No masses, no JVD. CHEST: No chest wall deformity. LUNGS: Equal air entry with no crackles, wheeze, rhonchi or dullness. CVS: S1 and S2 normal with no audible murmur, regular rhythm. ABDOMEN: No hepatosplenomegaly, normal bowel sounds, no guarding or rigidity. SPINE: No scoliosis or deformity SKIN: No rashes CENTRAL NERVOUS SYSTEM: No focal deficits, tone is normal in all 4 extremities. EXTREMITIES: There is no peripheral edema. No clubbing, no cyanosis. Peripheral pulses are intact. - Labs CBC & Chem 7: 03/04/21 12:01 03/04/21 12:01 Labs: Abnormal Lab Results - Last 24 Hours (Table) 03/03/21 03/04/21 03/04/21 Range/Units 20:01 07:03 11:11 WBC (3.8-10.6) k/uL Sodium (137-145) mmol/L BUN (9-20) mg/dL Creatinine (0.66-1.25) mg/dL Glucose (74-99) mg/dL POC Glucose (mg/dL) 67 L 118 H 116 H (75-99) mg/dL 03/04/21 03/04/21 Range/Units 12:01 12:01 WBC 11.3 H (3.8-10.6) k/uL Sodium 135 L (137-145) mmol/L BUN 37 H (9-20) mg/dL Creatinine 1.81 H (0.66-1.25) mg/dL Glucose 104 H (74-99) mg/dL POC Glucose (mg/dL) (75-99) mg/dL Assessment and Plan Assessment: 1 Shortness of breath, of unclear etiology. Chest x-ray was normal. CT angiogram revealed no residual clot. 2 Recent episode of pulmonary embolism, November,, status post nearly 3 months of treatment with Eliquis. 3 History of hyperlipidemia. 4 Rule out sleep apnea syndrome with testing to be done in the outpatient setting. 5 History of diabetes mellitus. 6 History of hypertension. 7 Obesity. 8 History of osteoarthritis. 9 History of kidney stones. Plan: The patient was seen and evaluated by Dr. Rudy Doherty for discharge from the pulmonary standpoint Follow-up in the office in 1-2 weeks' time I, the cosigning physician, performed a history & physical examination of the patient. Lungs sounds are clear. Maintaining good O2 saturations in the 90s on room air. I discussed the assessment and plan of care with my nurse practitioner, Migdalia Pace. I attest to the above note as dictated by her.
[2021-03-04] MEDS ORDERED: SODIUM CHLORIDE 0.9% 500 ML 500 ML IV ONE (15:05)
[2021-03-04 16:16] LABS: Glucose,Whole Blood 161 mg/dL (75-99)
[2021-03-04 16:22] VITALS: BP 92/63; PULSE 75
--- NOTE | 2021-03-04 18:32 | P.DS ---
Providers Date of admission: 03/03/21 05:45 Expected date of discharge: 03/04/21 Attending physician: Igor Naylor Consults: 03/03/21 05:45 Consult Physician Routine Consulting Provider: Donald Kapoor Consult Reason/Comments: hypoxia Do you want consulting provider notified?: Yes Primary care physician: [facility] Course: 55-year-old male, who was seen in the emergency room, on 03/03/2021. The patient came into the emergency room, complaining of shortness of breath and chest pain. The symptoms began about a day or so prior to admission. The patient was seen by our group back in November, for a pulmonary embolism. The patient had a chest x-ray on this evaluation, which is normal. In addition, he had a CT angiogram which was negative for any pulmonary disease, and also was negative for pulmonary embolism. The patient has been on blood thinners since early November. We thought he had a provoked a blood clot, and we recommended 3 months of therapy. He is almost completed 3 months of therapy. The patient smoked for one year many years back. Has no known history of any lung disease. As mentioned earlier, his chest x-ray was normal. The patient did get a breathing treatment I asked whether or not the breathing treatments seem to make a difference, and he said no. I told him, that he should see me in the office in follow-up at which time, we will do a pulmonary function test to determine whether or not there is any obstructive lung disease. The other issue with him as possible sleep apnea syndrome. Patient also be evaluated. From the pul monary perspective, the patient could be discharged from the emergency room, if it was okay with the primary service. CBC is completely normal. PT, INR, and PTT are normal. Sodium 136, potassium 4.3, chlorides 103, CO2 23, anion gap 10, BUN 33, and creatinine 0.76. Troponin was normal. N-terminal proBNP was normal. The patient is seen today 03/04/2021 in follow-up on the regular medical floor. He is currently resting comfortably in bed. Awake and alert in no acute distress. Breathing easier today compared to yesterday. 18 and O2 saturations in the 90s on room air. He's been afebrile. White count 11.3. Hemoglobin 15.8. Sodium 135. Potassium 4.4. Creatinine 1.81. Glucose 116. He remains on DuoNeb inhalations. Anticoagulated with Eliquis. Patient was evaluated by pulmonary service and was recommended to complete a total of 3 months of anticoagulation therapy; patient was ambulated and maintained O2 saturation without any supplemental oxygen; he will be discharged home with plan to follow-up with pulmonary service in 1-2 weeks Patient Condition at Discharge: Good Plan - Discharge Summary New Discharge Prescriptions: Continue Enalapril [Vasotec] 10 mg PO HS Gabapentin [Neurontin] 900 mg PO TID Tamsulosin HCl [Flomax] 0.4 mg PO DAILY Multivitamins, Thera [Multivitamin (formulary)] 1 tab PO DAILY Rosuvastatin [Crestor] 10 mg PO DAILY Oxybutynin Chloride 5 mg PO BID Omeprazole 20 mg PO BID [place]-3 Acid Ethyl Esters [Lovaza] 2 gm PO BID OLANZapine [ZyPREXA] 10 mg PO DAILY Insulin Glargine,Hum.rec.anlog [Toujeo Max Solostar] 120 units SQ BID FLUoxetine HCL 40 mg PO HS Dextroamphetamine/Amphetamine [Dextroamp-Amphetamin 20 mg Tab] 10 mg PO BID Baclofen [Lioresal] 20 mg PO TID Ibuprofen [Motrin] 800 mg PO Q8H Empagliflozin/Linagliptin [Glyxambi 25 mg-5 mg Tablet] 1 tab PO DAILY Apixaban [Eliquis] 5 mg PO BID Discharge Medication List Enalapril [Vasotec] 10 mg PO HS 11/17/14 [History] Gabapentin [Neurontin] 900 mg PO TID 11/17/14 [History] Baclofen [Lioresal] 20 mg PO TID 06/26/20 [History] Dextroamphetamine/Amphetamine [Dextroamp-Amphetamin 20 mg Tab] 10 mg PO BID 06/26/20 [History] FLUoxetine HCL 40 mg PO HS 06/26/20 [History] Insulin Glargine,Hum.rec.anlog [Toujeo Max Solostar] 120 units SQ BID 06/26/20 [History] Multivitamins, Thera [Multivitamin (formulary)] 1 tab PO DAILY 06/26/20 [History] OLANZapine [ZyPREXA] 10 mg PO DAILY 06/26/20 [History] [place]-3 Acid Ethyl Esters [Lovaza] 2 gm PO BID 06/26/20 [History] Omeprazole 20 mg PO BID 06/26/20 [History] Oxybutynin Chloride 5 mg PO BID 06/26/20 [History] Rosuvastatin [Crestor] 10 mg PO DAILY 06/26/20 [History] Tamsulosin HCl [Flomax] 0.4 mg PO DAILY 06/26/20 [History] Ibuprofen [Motrin] 800 mg PO Q8H 11/21/20 [History] Empagliflozin/Linagliptin [Glyxambi 25 mg-5 mg Tablet] 1 tab PO DAILY 12/07/20 [History] Apixaban [Eliquis] 5 mg PO BID 03/03/21 [History] Follow up Appointment(s)/Referral(s): Oseas Veras MD [Primary Care Provider] - 1-2 days (office closed at time of discharge. Please call to schedule appointment ) Patient Instructions/Handouts: Hypoxia (ED), Hypoxia (GEN) Discharge Disposition: HOME SELF-CARE
== END 2021-03-04 17:44 | disposition home or self-care (01) | DRG 206 ==
LOC: EC 01:29 → 4SSUR 05:45
PROVIDERS: ADMIT Hospitalist; ATTEND Hospitalist
DX: R09.02 Hypoxemia (principal); E11.9 Type 2 diabetes mellitus without complications; E66.9 Obesity, unspecified; E78.5 Hyperlipidemia, unspecified; I10 Essential (primary) hypertension; H91.90 Unspecified hearing loss, unspecified ear; Z79.01 Long term (current) use of anticoagulants; Z79.82 Long term (current) use of aspirin; Z79.899 Other long term (current) drug therapy; Z80.1 Family history of malignant neoplasm of trachea, bronchus and lung; Z86.711 Personal history of pulmonary embolism; Z87.442 Personal history of urinary calculi; Z87.891 Personal history of nicotine dependence
CPT/HCPCS: 36415; 71045; 71275; 80048; 80053; 83690; 83735; 83880; 84484; 85025; 85610; 85730; 93005; 99285

== ENCOUNTER 2022-05-29 05:26 | Emergency (ER) | payer MEDICARE, OTHER ==
[2022-05-29 05:40] VITALS: TEMP 98
[2022-05-29] MEDS ORDERED: ACETAMINOPHEN TAB 500 MG TAB PO STA (06:34)
--- NOTE | 2022-05-29 06:38 | ED ---
General Adult HPI - General Chief complaint: Fall Stated complaint: Fall, Bilateral Leg Injuries, Arm Injury Time Seen by Provider: 05/29/22 06:14 Source: patient, RN notes reviewed Mode of arrival: ambulatory Limitations: no limitations - History of Present Illness Initial comments: 56 year old male complaining of fall yesterday in the afternoon. He reports fall was from 6 feet while cleaning his gutter. He denies hitting his head, LOC, or anticoagulant use. He complains of bilateral powers pain, and R wrist pain with movement. He has tried Motrin 800 without relief. He admits to blurred vision, but denies fever, dizziness, nausea, vomiting, chest pain, SOB, extremity numbness, tingling. - Related Data Home Medications Medication Instructions Recorded Confirmed Enalapril [Vasotec] 10 mg PO HS 11/17/14 02/08/22 Dextroamphetamine/Amphetamine 10 mg PO BID 06/26/20 02/08/22 [Dextroamp-Amphetamin 20 mg Tab] FLUoxetine HCL 40 mg PO HS 06/26/20 02/08/22 Insulin Glargine,Hum.rec.anlog 120 units SQ BID 06/26/20 02/08/22 [Toujeo Max Solostar] Omeprazole 20 mg PO BID 06/26/20 02/08/22 Rosuvastatin [Crestor] 10 mg PO HS 06/26/20 02/08/22 Tamsulosin HCl [Flomax] 0.4 mg PO HS 06/26/20 02/08/22 Ibuprofen [Motrin] 800 mg PO Q8H PRN 11/21/20 02/08/22 Empagliflozin/Linagliptin 1 tab PO DAILY 12/07/20 02/08/22 [Glyxambi 25 mg-5 mg Tablet] Acetaminophen [Tylenol Extra 500 mg PO DIRECTED PRN 02/06/22 02/08/22 Strength] Calcium Carbonate [Calcium] 600 mg PO DAILY 02/06/22 02/08/22 Pregabalin 75 mg PO BID 02/06/22 02/08/22 Unk Multi Vitamin 1 tab PO DAILY 02/06/22 02/08/22 Unk Potassium 1 tab PO DAILY 02/06/22 02/08/22 Unk Vitamin D 1 tab PO DAILY 02/06/22 02/08/22 metFORMIN HCL 500 mg PO BID 02/06/22 02/08/22 Allergies Allergy/AdvReac Type Severity Reaction Status Date / Time codeine AdvReac Nausea & Verified 05/29/22 05:40 Vomiting Review of Systems ROS Statement: Those systems with pertinent positive or pertinent negative responses have been documented in the HPI. ROS Other: All systems not noted in ROS Statement are negative. Past Medical History Past Medical History: Diabetes Mellitus, GERD/Reflux, Hearing Disorder / Deafness, Hyperlipidemia, Hypertension, Osteoarthritis (OA) Additional Past Medical History / Comment(s): Hx KIDNEY STONES,rt ear hearing loss, carpal tunnel both hands, 2 blood clots in lungs 2020 post covid and surgery History of Any Multi-Drug Resistant Organisms: None Reported Past Surgical History: Orthopedic Surgery, Tonsillectomy Additional Past Surgical History / Comment(s): Nerve stimulator back, foot and ankle surgery right side Past Anesthesia/Blood Transfusion Reactions: No Reported Reaction Past Psychological History: Bipolar Smoking Status: Former smoker Past Alcohol Use History: None Reported Past Drug Use History: None Reported - Past Family History Mother Family Medical History: Cancer Additional Family Medical History / Comment(s): Pancreatic Father Family Medical History: Cancer Additional Family Medical History / Comment(s): LUNG CANCER General Exam Limitations: no limitations Head exam: Present: atraumatic, normocephalic Eye exam: Present: normal appearance, PERRL, EOMI Pupils: Present: normal accommodation Neck exam: Present: normal inspection. Absent: tenderness, meningismus, lymphadenopathy Respiratory exam: Present: normal lung sounds bilaterally. Absent: respiratory distress, wheezes, rales, rhonchi, stridor Cardiovascular Exam: Present: regular rate, normal rhythm, normal heart sounds. Absent: systolic murmur, diastolic murmur, rubs, gallop, clicks GI/Abdominal exam: Present: soft, normal bowel sounds. Absent: distended, tenderness, guarding, rebound, rigid Extremities exam: Present: other (Bilateral 5 cm abrasion to BL shins, no crepitus, erythema, edema. 2+ DT/PT pulses. NVI bilaterally.) Back exam: Present: normal inspection, full ROM Neurological exam: Present: alert, oriented X3, CN II-XII intact Expanded Patient oriented to: Present: person, place, time Motor strength exam: RUE: 5, LUE: 5, RLE: 5, LLE: 5 Eye Response: (4) open spontaneously Motor Response: (6) obeys commands Verbal Response: (5) oriented Course Vital Signs 05/29/22 05:36 Temperature 98 F Pulse Rate 71 Respiratory 18 Rate Blood Pressure 123/82 O2 Sat by Pulse 97 Oximetry Medical Decision Making - Medical Decision Making 56 year old presented with a fall. I interpreted the following images. XR negative for fracture, CT negative for hemorrhage. Patient had lidoderm patch applied to RLE, and given tylenol in the ED with symptomatic relief. Discussed with patient if worsening symptoms of numbness, tingling, or vision changes to return the ED. Alternative treatment options discussed. All questions answered. Case discussed with Dr. Longo. - Radiology Data Interpreted by me: XR of R wrist, BLE negative for fracture, soft tissue injury. CT negative for hemorrhage and acute changes. Disposition Clinical Impression: Fall Disposition: HOME SELF-CARE Condition: Stable Instructions (If sedation given, give patient instructions): Contusion in Adults (ED) Additional Instructions: Please return to the ED if symptoms worsen or any additional complaints. Is patient prescribed a controlled substance at d/c from ED?: No Referrals: Arturo Hamilton MD [Primary Care Provider] - 1-2 days Time of Disposition: 08:37
--- NOTE | 2022-05-29 07:34 | XR ---
EXAMINATION TYPE: XR tibia fibula bilateral DATE OF EXAM: 05/29/2022 CLINICAL HISTORY: Injury with pain TECHNIQUE: Two views of the bilateral legs are obtained. COMPARISON: None. FINDINGS: There is no acute fracture or dislocation seen in either tibia or fibula. Lateral fixating plate for healed fracture distal right fibula is present. Knee joints appear within normal limits b ilaterally. The overlying soft tissue appears unremarkable bilaterally. IMPRESSION: There is no acute fracture or dislocation seen in either leg.
--- NOTE | 2022-05-29 07:35 | XR ---
EXAMINATION TYPE: XR wrist complete RT DATE OF EXAM: 05/29/2022 CLINICAL HISTORY: Trauma injury with pain TECHNIQUE: Frontal, lateral and oblique images of the right wrist are obtained. 4 view scaphoid vie w is performed. COMPARISON: None FINDINGS: There is no acute fracture/dislocation evident in the right wrist. Subchondral cyst in th e lunate is present. The joint spaces in the right wrist appear within normal limits. The overlying soft tissue appears unremarkable. IMPRESSION: There is no acute fracture or dislocation in the right wrist.
--- NOTE | 2022-05-29 08:03 | CT ---
EXAMINATION TYPE: CT brain cspine wo con DATE OF EXAM: 05/29/2022 COMPARISON: CT 11/15/2020 HISTORY: Fall injury with headache and neck pain. CT DLP: 1494.2 mGycm. Automated Exposure Control for Dose Reduction was Utilized. TECHNIQUE: CT scan of the head and cervical spine are performed without contrast. FINDINGS: There is no acute intracranial hemorrhage, mass effect, or midline shift identified. The ventricles and sulci are within normal limits in size. Babb-white matter differentiation is maintain ed. The calvarium is intact. The globes are intact and the visualized sinuses are clear. Cervical spine is visualized in its entirety from C1 through upper thoracic levels and demonstrates s table and straightened alignment without evidence of acute fracture or dislocation. Prevertebral sof t tissue appears within normal limits. The C1-C2 articulation is within normal limits on the coronal images. Vertebral body heights are maintained. Slight grade 1 retrolisthesis C5 on C6. Moderate dis c space narrowing and spurring C5-C6 level redemonstrated. Posterior spur disc complexes redemonstrat ed efface the anterior thecal sac at C4-C5 through the C6-C7 levels. Axial images redemonstrate multi level left-sided uncovertebral facet degenerative changes causing neural foraminal narrowing. Lung ap ices show no pneumothorax. Heterogeneous thyroid is only partially imaged. IMPRESSION: 1. There is no acute fracture or dislocation evident in the cervical spine. 2. No acute intracranial hemorrhage or midline shift is seen.
[2022-05-29] MEDS ORDERED: LIDOCAINE 5% PATCH TOPICAL SCH (09:00)
[2022-05-29 09:01] VITALS: BP 131/71; PULSE 75; RESP 17
== END 2022-05-29 09:01 | disposition home or self-care (01) ==
LOC: EC 05:26
DX: S80.812A Abrasion, left lower leg, initial encounter (principal); S80.811A Abrasion, right lower leg, initial encounter; E11.9 Type 2 diabetes mellitus without complications; K21.9 Gastro-esophageal reflux disease without esophagitis; E78.5 Hyperlipidemia, unspecified; I10 Essential (primary) hypertension; M19.90 Unspecified osteoarthritis, unspecified site; H91.91 Unspecified hearing loss, right ear; Z86.16 Personal history of COVID-19; Z88.5 Allergy status to narcotic agent; Z79.84 Long term (current) use of oral hypoglycemic drugs; Z79.4 Long term (current) use of insulin; Z87.891 Personal history of nicotine dependence; Z79.899 Other long term (current) drug therapy; W17.89XA Other fall from one level to another, initial encounter; Y92.89 Other specified places as the place of occurrence of the external cause
CPT/HCPCS: 70450; 72125; 99284

== ENCOUNTER → 2022-07-06 | Outpatient (CLI) | payer MEDICARE, OTHER ==
[2022-07-06 18:21] LABS: African American GFR (CKD) >90 (>60 ml/min/1.73 sqM); Blood Urea Nitrogen 24 mg/dL (9-20); Non-African American GFR(CKD) >90 (>60 ml/min/1.73 sqM)
--- NOTE | 2022-07-07 09:39 | CT ---
EXAMINATION TYPE: CT abdomen wo/w con CT DLP: 5.90 mGycm, Automated exposure control for dose reduction was used. DATE OF EXAM: 07/06/2022 6:51 PM COMPARISON: CT abdomen pelvis most recent from 11/28/2019 dating back to 05/19/2013. CLINICAL INDICATION:Male, 56 years old with history of N28.1 renal cyst; renal cyst TECHNIQUE: Axial CT of the abdomen . Sagittal and coronal reformats were created on a separate works tation. Contrast used:100 mL of Isovue 300 without and with IV Contrast, Oral contrast used: with Oral Contrast FINDINGS: LOWER CHEST: Unremarkable ABDOMEN LIVER: Diffusely hypoattenuating parenchyma. GALLBLADDER AND BILE DUCTS: Unremarkable. PANCREAS: Unremarkable. SPLEEN: Unremarkable. ADRENAL GLANDS: Unremarkable. KIDNEYS AND URETERS: Bilateral nonobstructing calculi measuring up tor 5 mm on the right and 12 mm on the left. Multiple nonenhancing renal cysts are seen in the right abdomen in the superior pole measu ring up to 3.1, 2.6 and 2.2 cm. No suspicious renal masses are identified. No evidence of obstructive uropathy. STOMACH AND BOWEL: No evidence of bowel obstruction. Scattered clonic diverticula are present. PERITONEUM/RETROPERITONEUM: No evidence of pneumoperitoneum or free fluid. . VASCULATURE: No evidence of aortic aneurysm. Atherosclerosis of the arterial vasculature. MUSCULOSKELETAL: No acute osseous abnormalities LYMPH NODES: No gross evidence for lymphadenopathy. SOFT TISSUE/ABDOMINAL WALL: Battery pack in the left posterior subcutaneous tissues with leads termin ating in the thecal sac. IMPRESSION: 1. Right renal cysts. No suspicious renal lesions. 2. Bilateral nonobstructing renal calculi. 3. Hepatic steatosis.
== END | disposition home or self-care (01) ==
LOC: RADCTMAIN 17:33
PROVIDERS: ATTEND Urology
DX: D41.01 Neoplasm of uncertain behavior of right kidney (principal); N28.1 Cyst of kidney, acquired; N20.0 Calculus of kidney; K76.0 Fatty (change of) liver, not elsewhere classified
CPT/HCPCS: 82565; 84520; 74170; 36415; Q9967

== ENCOUNTER 2022-07-26 06:58 | Day surgery (SDC) | payer MEDICARE, OTHER ==
[2022-07-24 10:53] VITALS: BMI 35.2
[2022-07-26 07:22] VITALS: TEMP 97.2
[2022-07-26] MEDS ORDERED: LACTATED RINGERS 1,000 ML IV SCH (07:28)
[2022-07-26 07:31] LABS: Glucose,Whole Blood 86 mg/dL (70-110)
[2022-07-26] MEDS ORDERED: LIDOCAINE 2% INJ 20 MG/ML (2 ML VIAL) ONE (07:35)
[2022-07-26] MEDS ORDERED: PROPOFOL 10 MG/ML 20 ML VIAL IV ONE (07:35)
[2022-07-26] MEDS ORDERED: fentaNYL (PF) 50 MCG/ML 2 ML AMP ONE (07:35)
--- NOTE | 2022-07-26 07:52 | P.GSHP ---
History of Present Illness H&P Date: 07/26/22 CHIEF COMPLAINT: GERD HISTORY OF PRESENT ILLNESS: The patient is a 56-year-old male who presents reports gastroesophageal reflux disease. Upper endoscopy was offered for further evaluation and management. PAST MEDICAL HISTORY: Please see list. PAST SURGICAL HISTORY: Please see list. MEDICATIONS: Please see list. ALLERGIES: Please see list. SOCIAL HISTORY: No illicit drug use FAMILY HISTORY: No reports of Crohn disease or ulcerative colitis. REVIEW OF ORGAN SYSTEMS: CONSTITUTIONAL: No reports of fevers or chills. GI: Denies any blood in stools or constipation. PHYSICAL EXAM: VITAL SIGNS: Stable GENERAL: Well-developed and pleasant in no acute distress. HEENT: No scleral icterus. Extraocular movements grossly intact. Moist buccal mucosa. NECK: Supple without lymphadenopathy. CHEST: Unlabored respirations. Equal bilateral excursions. CARDIOVASCULAR: Regular rate and rhythm. Distal 2+ pulses. ABDOMEN: Soft, nondistended. MUSCULOSKELETAL: No clubbing, cyanosis, or edema. ASSESSMENT: 1. Gastroesophageal reflux disease PLAN: 1. Recommend proceeding with an upper endoscopy Past Medical History Past Medical History: Diabetes Mellitus, GERD/Reflux, Hearing Disorder / Deafness, Hyperlipidemia, Hypertension, Osteoarthritis (OA), Pulmonary Embolus (PE) Additional Past Medical History / Comment(s): Hx KIDNEY STONES, rt ear hearing loss, carpal tunnel both hands, 2 blood clots in lungs 2020 post covid and surgery History of Any Multi-Drug Resistant Organisms: None Reported Past Surgical History: Orthopedic Surgery, Tonsillectomy Additional Past Surgical History / Comment(s): Nerve stimulator back, foot and ankle surgery right side Past Anesthesia/Blood Transfusion Reactions: No Reported Reaction Past Psychological History: Bipolar Smoking Status: Former smoker Past Alcohol Use History: None Reported Additional Past Alcohol Use History / Comment(s): STARTED SMOKING AT AGE 16 QUIT AT AGE 26 SMOKED 1/2 PPD Past Drug Use History: None Reported - Past Family History Mother Family Medical History: Cancer Additional Family Medical History / Comment(s): Pancreatic Father Family Medical History: Cancer Additional Family Medical History / Comment(s): LUNG CANCER Medications and Allergies Home Medications Medication Instructions Recorded Confirmed Type Enalapril [Vasotec] 10 mg PO HS 11/17/14 07/24/22 History FLUoxetine HCL 40 mg PO HS 06/26/20 07/24/22 History Rosuvastatin [Crestor] 10 mg PO HS 06/26/20 07/24/22 History Ibuprofen [Motrin] 800 mg PO Q8H PRN 11/21/20 07/24/22 History Pregabalin 75 mg PO BID 02/06/22 07/24/22 History metFORMIN HCL 500 mg PO QAM 02/06/22 07/24/22 History Empagliflozin/Linagliptin 1 tab PO QAM 07/24/22 07/24/22 History [Glyxambi 25 mg-5 mg Tablet] OLANZapine 15 mg PO HS 07/24/22 07/24/22 History Pantoprazole [Protonix] 20 mg PO HS 07/24/22 07/24/22 History traMADol HCL 50 - 100 mg PO TID PRN 07/24/22 07/24/22 History Allergies Allergy/AdvReac Type Severity Reaction Status Date / Time codeine Allergy Swelling Verified 07/26/22 07:35 Surgical - Exam Vital Signs Temp Pulse Resp BP Pulse Ox 97.2 F L 71 16 124/75 93 L 07/26/22 07:21 07/26/22 07:21 07/26/22 07:21 07/26/22 07:21 07/26/22 07:21
--- NOTE | 2022-07-26 07:59 | P.PCN ---
Date of Procedure: 07/26/22 Description of Procedure: PREOPERATIVE DIAGNOSIS: Gastroesophageal reflux disease with history of Alvarenga's esophagus Morbid obesity. POSTOPERATIVE DIAGNOSIS: Gastroesophageal reflux disease with erosive esophagitis Morbid obesity due to excess calories Diaphragmatic hiatal hernia Gastric polyp OPERATION: Esophagogastroduodenoscopy with biopsies along antrum, esophagus, duodenum SURGEON: Sisi Coy MD ANESTHESIA: MAC. INDICATIONS: The patient is a 56-year-old male who presents with reflux disease. Benefits and risks of the procedure were described. Informed consent was obtained. DESCRIPTION: The patient was brought into the endoscopy suite and laid in the left lateral decubitus position. An Olympus gastroscope was passed along the posterior oropharynx down to the distal esophagus where the squamocolumnar junction was encountered at 42 cm from the incisors. The stomach was entered and no bile reflux was found. Additional findings are listed below. Biopsies with cold forceps were obtained of the antrum. The first through third portion of the duodenum was examined. Retroflexion of the scope confirmed Hill grade 3 lower esophageal valve. The squamocolumnar junction demonstrated LA grade B erosive esophagitis. The stomach was desufflated. The patient tolerated the procedure w ell. FINDINGS: Squamocolumnar junction 42 cm from the incisors. Diaphragmatic hiatus at 44 cm. Hiatal hernia, 2 cm, sliding hiatal hernia Hill grade 3 lower esophageal valve. LA grade B erosive esophagitis. Biopsies obtained of duodenum Chronic gastritis with biopsies obtained Few scattered gastric polyps, less than 8 - 3 mm polyps, benign RECOMMENDATIONS: Repeat upper endoscopy 3 years for history of Alvarenga's, 2025 Plan - Discharge Summary Discharge Rx Participant: Yes New Discharge Prescriptions: Continue Enalapril [Vasotec] 10 mg PO HS Rosuvastatin [Crestor] 10 mg PO HS FLUoxetine HCL 40 mg PO HS Ibuprofen [Motrin] 800 mg PO Q8H PRN PRN Reason: Pain Pantoprazole [Protonix] 20 mg PO HS OLANZapine 15 mg PO HS Empagliflozin/Linagliptin [Glyxambi 25 mg-5 mg Tablet] 1 tab PO QAM metFORMIN HCL 500 mg PO QAM Pregabalin 75 mg PO BID traMADol HCL 50 - 100 mg PO TID PRN PRN Reason: Pain Discharge Medication List Enalapril [Vasotec] 10 mg PO HS 11/17/14 [History] FLUoxetine HCL 40 mg PO HS 06/26/20 [History] Rosuvastatin [Crestor] 10 mg PO HS 06/26/20 [History] Ibuprofen [Motrin] 800 mg PO Q8H PRN 11/21/20 [History] Pregabalin 75 mg PO BID 02/06/22 [History] metFORMIN HCL 500 mg PO QAM 02/06/22 [History] Empagliflozin/Linagliptin [Glyxambi 25 mg-5 mg Tablet] 1 tab PO QAM 07/24/22 [History] OLANZapine 15 mg PO HS 07/24/22 [History] Pantoprazole [Protonix] 20 mg PO HS 07/24/22 [History] traMADol HCL 50 - 100 mg PO TID PRN 07/24/22 [History] Follow up Appointment(s)/Referral(s): Sisi Coy MD [STAFF PHYSICIAN] - 08/07/22 Patient Instructions/Handouts: Hiatal Hernia (DC) Discharge Disposition: HOME SELF-CARE
[2022-07-26 08:15] VITALS: BP 137/82; PULSE 74; RESP 20
== END 2022-07-26 08:30 | disposition home or self-care (01) ==
LOC: ORWHC2ENDO 06:58
PROVIDERS: ATTEND Surgery Plastic and Reconstructive Surgery
DX: K21.00 Gastro-esophageal reflux disease with esophagitis, without bleeding (principal); K29.50 Unspecified chronic gastritis without bleeding; K22.70 Barrett's esophagus without dysplasia; K44.9 Diaphragmatic hernia without obstruction or gangrene; K31.7 Polyp of stomach and duodenum; E66.01 Morbid (severe) obesity due to excess calories; Z87.19 Personal history of other diseases of the digestive system; Z79.84 Long term (current) use of oral hypoglycemic drugs; Z79.899 Other long term (current) drug therapy; E78.5 Hyperlipidemia, unspecified; I10 Essential (primary) hypertension; M19.90 Unspecified osteoarthritis, unspecified site; Z86.711 Personal history of pulmonary embolism
CPT/HCPCS: 88305; 43239; J3010; J2704; J2001

== ENCOUNTER → 2022-12-11 | Outpatient (CLI) | payer MEDICARE, OTHER ==
[2022-12-11 15:53] LABS: Basophils # (A) 0.09 X 10*3/uL (0.00-0.10); Basophils % (A) 0.7 %; Eosinophils # (A) 0.18 X 10*3/uL (0.04-0.35); Eosinophils % (A) 1.5 %; HCT 49.9 % (39.6-50.0); HGB 17.5 d/dL (12.0-15.0); Lymphocytes # (A) 3.26 X 10*3/uL (0.90-5.00); Lymphocytes % (A) 27.1 %; MCH 30.2 pg (27.0-32.0); MCHC 35.1 d/dL (32.0-37.0); MCV 86.2 FL (80.0-97.0); Mean Platelet Volume 9.8 FL (9.5-12.2); Monocytes % (A) 7.5 %; NRBC Per 100 WBC 0 X 10*3/uL (0.00-0.01); Neutrophils # (A) 7.36 X 10*3/uL (1.80-7.70); Neutrophils % (A) 61.1 %; Platelet Count 359 X 10*3/uL (140-440); RBC 5.79 X 10*6/uL (4.40-5.60); RDW 12.3 % (11.5-14.5); WBC 12.04 X 10*3/uL (4.50-10.00)
== END | disposition home or self-care (01) ==
LOC: LABPAT 10:27
PROVIDERS: ATTEND Surgery Plastic and Reconstructive Surgery
DX: Z01.812 Encounter for preprocedural laboratory examination (principal)
CPT/HCPCS: 85025

== ENCOUNTER 2022-12-13 13:27 | Inpatient (IN) | payer MEDICARE, OTHER ==
--- NOTE | 2022-12-13 11:38 | P.GSHP ---
History of Present Illness H&P Date: 12/13/22 CHIEF COMPLAINT: Paraesophageal hiatal hernia with gastroesophageal reflux disease. HISTORY OF PRESENT ILLNESS: The patient is a 57-year-old male who presents with symptomatic paraesophageal hiatal hernia over one year with gastroesophageal reflux disease. He has completed upper endoscopy workup. Now he presents for surgical intervention. PAST MEDICAL HISTORY: Please see list. PAST SURGICAL HISTORY: Please see list. MEDICATIONS: Please see list. ALLERGIES: Please see list. SOCIAL HISTORY: No illicit drug use FAMILY HISTORY: No reports of Crohn disease or ulcerative colitis. REVIEW OF ORGAN SYSTEMS: CONSTITUTIONAL: No reports of fevers or chills. GI: Denies any blood in stools or constipation. PHYSICAL EXAM: VITAL SIGNS: Stable GENERAL: Well-developed pleasant and in no acute distress. HEENT: No scleral icterus. Extraocular movements grossly intact. Moist buccal mucosa. NECK: Supple without lymphadenopathy. CHEST: Unlabored respirations. Equal bilateral excursions. CARDIOVASCULAR: Regular rate and rhythm. Distal 2+ pulses. ABDOMEN: Soft, nondistended. No peritoneal signs. MUSCULOSKELETAL: No clubbing, cyanosis, or edema. SKIN: Well-perfused. Good skin turgor. REPORTS: Upper endoscopy demonstrates paraesophageal hiatal hernia BARIUM SWALLOW: Images reviewed demonstrating paraesophageal hiatal hernia. This is my independent interpretation. REPORTS: Cardiology risk assessment obtained. Please see chart. ASSESSMENT: 1. Diaphragmatic paraesophageal hiatal hernia with severe gastroesophageal reflux disease. PLAN: 1. Recommend proceeding with a robotic paraesophageal hiatal hernia with possible mesh. 2. Benefits and risks of surgical intervention was discussed including possibility of open technique. 3. Inpatient hospitalization recommended of 2 nights 4. DVT prophylaxis. 5. Antibiotic prophylaxis. 6. He has also completed a very low caloric high-protein diet to address underlying hepatomegaly. 7. Non narcotic pain management including abdominal wall block described 8. Blood sugar glucose described. 9. Weight loss management described. Past Medical History Past Medical History: Diabetes Mellitus, GERD/Reflux, Hearing Disorder / Deafness, Hyperlipidemia, Hypertension, Osteoarthritis (OA), Skin Disorder Additional Past Medical History / Comment(s): Hx KIDNEY STONES,rt ear hearing loss, carpal tunnel both hands, 2 blood clots in lungs 2020 post covid and surgery. psoriasis, pain rt foot some swelling to foot History of Any Multi-Drug Resistant Organisms: None Reported Past Surgical History: Orthopedic Surgery, Tonsillectomy Additional Past Surgical History / Comment(s): Nerve stimulator back, foot and ankle surgery right side, colonoscopy Past Anesthesia/Blood Transfusion Reactions: No Reported Reaction Smoking Status: Former smoker - Past Family History Mother Family Medical History: Cancer Additional Family Medical History / Comment(s): Pancreatic Father Family Medical History: Cancer Additional Family Medical History / Comment(s): LUNG CANCER Medications and Allergies Home Medications Medication Instructions Recorded Confirmed Type Enalapril [Vasotec] 10 mg PO HS 11/17/14 12/07/22 History FLUoxetine HCL 40 mg PO HS 06/26/20 12/07/22 History Rosuvastatin [Crestor] 10 mg PO HS 06/26/20 12/07/22 History Ibuprofen [Motrin] 800 mg PO Q8H PRN 11/21/20 12/07/22 History Pregabalin 75 mg PO BID 02/06/22 12/07/22 History metFORMIN HCL 500 mg PO HS 02/06/22 12/07/22 History Empagliflozin/Linagliptin 1 tab PO QAM 07/24/22 12/07/22 History [Glyxambi 25 mg-5 mg Tablet] OLANZapine 15 mg PO HS 07/24/22 12/07/22 History Pantoprazole [Protonix] 20 mg PO HS 07/24/22 12/07/22 History traMADol HCL 50 - 100 mg PO TID PRN 07/24/22 12/07/22 History Dextroamphetamine/Amphetamine 20 mg PO BID 12/07/22 12/07/22 History [Adderall] Multivitamin/Iron/Folic Acid 1 each PO HS 12/07/22 12/07/22 History [Centrum Adults Tablet] Semaglutide [Rybelsus] 14 mg PO HS 12/07/22 12/07/22 History Allergies Allergy/AdvReac Type Severity Reaction Status Date / Time codeine Allergy Swelling Verified 12/07/22 15:09
[~2022-12-13 13:27] MED LIST changes: +HEPARIN SODIUM,PORCINE/PF 5,000 UNIT/0.5 ML SYRINGE SQ PRN; -HYDROmorphone 0.5 MG/0.5 ML SYRINGE IVP PRN; -LACTATED RINGERS 1,000 ML IV SCH; -LIDOCAINE 1% (10MG/ML) FOR IV START INTRADERMA PRN; -MIDAZOLAM 2 MG/2 ML VIAL IV PRN; +TAMSULOSIN 0.4 MG CAP.ER.24H PO STA
[2022-12-13] MEDS: LACTATED RINGERS 1,000 ML IV SCH (13:45)
[2022-12-13 14:11] LABS: Glucose,Whole Blood 172 mg/dL (70-110)
[2022-12-13 14:30] LABS: Basophils # (A) 0.1 k/uL (0-0.2); Basophils % (A) 1 %; Eosinophils # (A) 0.1 k/uL (0-0.7); Eosinophils % (A) 1 %; HCT 48.4 % (39.0-53.0); HGB 16.9 gm/dL (13.0-17.5); Lymphocytes # (A) 2.6 k/uL (1.0-4.8); Lymphocytes % (A) 27 %; MCH 29.9 pg (25.0-35.0); MCHC 34.9 g/dL (31.0-37.0); MCV 85.7 fL (80.0-100.0); Mean Platelet Volume 7.4; Monocytes # (A) 0.6 k/uL (0-1.0); Monocytes % (A) 6 %; Neutrophils # (A) 6.3 k/uL (1.3-7.7); Neutrophils % (A) 64 %; Platelet Count 317 k/uL (150-450); RBC 5.65 m/uL (4.30-5.90); RDW 12.1 % (11.5-15.5); WBC 9.8 k/uL (3.8-10.6)
[2022-12-13 14:33] LABS: ALT 34 U/L (4-49); AST 23 U/L (17-59); African American GFR (CKD) >90 (>60 ml/min/1.73 sqM); Albumin 4.2 g/dL (3.5-5.0); Alkaline Phosphatase 134 U/L (38-126); Anion Gap 10 mmol/L; Blood Urea Nitrogen 23 mg/dL (9-20); Calcium 9.1 mg/dL (8.4-10.2); Carbon Dioxide 26 mmol/L (22-30); Chloride 99 mmol/L (98-107); Glucose 170 mg/dL (74-99); Non-African American GFR(CKD) >90 (>60 ml/min/1.73 sqM); Potassium 4.2 mmol/L (3.5-5.1); Sodium 135 mmol/L (137-145); Total Bilirubin 0.4 mg/dL (0.2-1.3)
[2022-12-13] MEDS ORDERED: NEOSTIGMINE 1 MG/ML 10 ML VIAL ONE (16:14)
[2022-12-13] MEDS ORDERED: MIDAZOLAM 2 MG/2 ML VIAL ONE (16:14)
[2022-12-13] MEDS ORDERED: SUCCINYLCHOLINE CHLORIDE 200 MG/10 ML VIAL IV ONE (16:14)
[2022-12-13] MEDS ORDERED: GLYCOPYRROLATE 0.2 MG/ML 2 ML VIAL ONE (16:14)
[2022-12-13] MEDS ORDERED: PROPOFOL 10 MG/ML 20 ML VIAL IV ONE (16:14)
[2022-12-13] MEDS ORDERED: fentaNYL (PF) 50 MCG/ML 2 ML AMP ONE (16:14)
[2022-12-13] MEDS ORDERED: ROCURONIUM 10 MG/ML (5 ML VIAL) IV ONE (16:14)
[2022-12-13] MEDS ORDERED: LIDOCAINE 2% INJ 20 MG/ML (2 ML VIAL) ONE (16:14)
[2022-12-13] MEDS ORDERED: LIDOCAINE 0.5%-EPI 1:200,000 50 ML VIAL SQ ONE (16:43)
[2022-12-13] MEDS ORDERED: LACTATED RINGERS 1,000 ML IV ONE (17:30)
[2022-12-13] MEDS ORDERED: HYDROmorphone 0.5 MG/0.5 ML SYRINGE IVP ONE (19:20)
[2022-12-13] MEDS ORDERED: NALOXONE 0.4 MG/ML 1 ML VIAL IV PRN ×2 (19:28→19:31)
[2022-12-13] MEDS ORDERED: DEXTROSE 50% SYRINGE 50 ML IVP PRN ×2 (19:34)
--- NOTE | 2022-12-13 20:04 | P.OP ---
Date of Procedure: 12/13/22 Description of Procedure: SURGEON: DILLON EARLY MD PREOPERATIVE DIAGNOSES: 1. Symptomatic paraesophageal diaphragmatic hiatal hernia. 2. Gastroesophageal reflux disease with esophageal dysmotility 3. Hypertensive heart disease 4. Generalized anxiety disorder 5. Morbid obesity due to excess calories, BMI 36.5 6. Diabetes type 2, [id number] 7. Diabetes type 2 with nephropathy 8. Diabetes type 2 with neuropathy 9. Hyperlipidemia 10. Attention deficit disorder 11. Depressive disorder 12. Obstructive sleep apnea 13. Psoriasis 14. Chronic pain syndrome 15. Bipolar disorder 16. Former tobacco abuse disorder POSTOPERATIVE DIAGNOSES: 1. Paraesophageal midline diaphragmatic hernia, 3 cm, without incarceration. 2. Gastroesophageal reflux disease with esophageal dysmotility 3. Hypertensive heart disease 4. Generalized anxiety disorder 5. Morbid obesity due to excess calories, BMI 36.5 6. Diabetes type 2, [id number] 7. Diabetes type 2 with nephropathy 8. Diabetes type 2 with neuropathy 9. Hyperlipidemia 10. Attention deficit disorder 11. Depressive disorder 12. Obstructive sleep apnea 13. Psoriasis 14. Chronic pain syndrome 15. Bipolar disorder 16. Former tobacco abuse disorder 17. Gastroparesis 18. 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 Robotic-assisted da Rahul Xi laparoscopic reduction and repair of incarcerated paraesophageal hiatal hernia, 4 x 4 cm, with Coleman Biopatch A 8 x 8 cm. 2. Intraoperative esophagogastroduodenoscopy 3. Placement of 56-Maori bougie ANESTHESIA: General with local anesthetic. ESTIMATED BLOOD LOSS: 5 mL SPECIMENS REMOVED: None COMPLICATIONS: None. Condition: stable Disposition: floor FINDINGS: 1. Midline incarcerated paraesophageal hiatal hernia 4 x 4 cm 2. Intraoperative upper endoscopy confirms complete closure of hiatal hernia from Hill grade 4 to Hill grade 1 3. Intraesophageal length over 2 cm 4. 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 Moderate hepatomegaly due to fatty liver disease 6. Gastroparesis with moderate retained food. Patient reports eating over 18- 20 hours prior to his procedure INDICATIONS: The patient is a 57-year-old male who presents with gastroesophageal reflux disease poorly controlled despite medications, and a symptomatic diaphragmatic hiatal hernia. Preoperative workup including upper endoscopy demonstrated a sliding hiatal hernia. The patient completed an esophageal manometry. Given the severity of symptoms, the patient had elected for surgical intervention. Benefits and risks including bleeding, infection, recurrence, dysphagia, injury to the lung, need for further surgery was described at length. Informed consent was obtained. DESCRIPTION: The patient was brought into the operating room and placed in supine position. Preoperatively the patient had received heparin subcutaneously for DVT prophylaxis. After general induction, the abdomen was prepped and draped in standard sterile fashion. The patient had previously voided prior to coming to the operating room. Ioban draping was placed along the abdomen. A timeout protocol was confirmed with the surgical team, for which the patient's name, procedure to be performed including DVT prophylaxis with bilateral SCDs, and preoperative antibiotics were also confirmed. A robotic da Rahul Xi system was prepped and primed. At 12 cm from the xiphoid to just below the umbilicus, proposed port sites were marked with indelible marker along the left axillary line, left mid-clavicular line with each ports were marked 10 cm from each other. A 5 mm 0 degrees lap aroscopic trocar entry was performed along the left upper quadrant. The abdomen was insufflated to 15 mmHg pressure was tolerated well. Diagnostic laparoscopy demonstrated no injury to bowel, viscera, or mesentery. No injury had occurred to the small bowel or viscera. The liver large with fatty liver disease despite 2 week high-protein low-carb diet. Next, one 8 mm robotic port was placed along the right upper abdomen. An 8-mm port was were placed along the right lateral lateral abdominal wall. The camera 8-mm port was maintained along the epigastrium. Another 12 mm port was placed along the left upper abdominal wall after exchanging the 5 mm port. Please note that the ports were placed at least 20 cm away from the target anatomy. Care was taken to check that each robotic arm were safely away from collision with the bed or the patient. At the epigastrium, a medium sized Faraz liver retractor was placed under direct visualization with the Iron Cost Accounting Analyst placed under the right shoulder of the patient. All robotic arms were used. The patient was repositioned in reverse Trendelenburg position at 21-degrees after lowering the bed. The robot was docked above the right side of the patient. Using a grasper for arm 3, a grasper for arm 1, including vessel sealer for arm 2, the robotic system was docked and primed as described. Instruments were interchanged by the syrup mixer assistant. I had sat at the console. The gastrohepatic ligament was cleaved using a vessel sealer. Next, the phrenoesophageal ligament was mobilized and the distal esophagus was mobilized circumferentially. The left and right crura was identified. Circumferentially, the hernia sac was excised and brought into the peritoneal cavity. A large fatty tumor was reduced from the anterior mediastinum of 6 x 4 cm into the abdominal cavity. Moderate dissection into the mediastinum was performed to release the esophagus into the abdominal cavity. The paraesophageal hiatal hernia sac was also incised and divided from the esophagus. Care was taken to avoid any gastrotomy. The measured defect was consistent with 4 cm axial length and 4 cm in width. After dissection, the distal esophagus of 2+ cm was brought into the abdominal cavity. Once the hiatus and crura was dissected, 2-0 VLOC nonabsorbable suture was placed to reapproximate the diaphragmatic hiatus posteriorly. To buttress the repair, a Coleman Biopatch A was prepared along the back table and cut in half of a gaines-hole fashion as to reinforce the repair as an underlay. The mesh was placed along the crural repair and tagged using horizontal mattress sutures using 2-0 VLOC. I went to the head of the bed to perform intraoperative esophagogastroduodenoscopy and placement of a 56Fr bougie. The bougie was passed along the posterior oropharynx into the stomach to address pre-existing esophageal dysmotility for 2 minutes then removed. An Olympus gastroscope was passed through posterior oropharynx. Retroflexion of the scope confirmed a Hill grade 1 lower esophageal valve. Moderate retained food and fluids were aspirated from the stomach with features of gastroparesis. The stomach had been desufflated. No evidence of leaks were found of the esophagus or stomach. The GI tract with desufflated This concluded the endoscopic portion of the case. The robot was undocked from the patient. I re-scrubbed into the case. All instruments and pneumoperitoneum and specimens were evacuated from the abdominal cavity. Incisions were reapproximated using 4-0 Monocryl in an interrupted subcuticular fashion. Liquid glue was applied to the skin. Local anesthetic was infiltrated in all wounds for postop analgesia. At the end of the procedure, needle, sponge, and instrument count was verified correct by the surgical coordinator. The patient had tolerated the procedure well and was taken to the postanesthesia unit in stable condition.
[2022-12-13] MEDS ORDERED: lisinopriL 20 MG TAB PO SCH (21:00)
[2022-12-13] MEDS ORDERED: NON FORMULARY DRUG (Semaglutide [Rybelsus] 14 MG Tablet) PO SCH (21:00)
[2022-12-13] MEDS ORDERED: fentaNYL PCA 500 MCG/50 ML BAG IV SCH (21:00)
[2022-12-13] MEDS ORDERED: OLANZapine 7.5 MG TAB PO SCH (21:00)
[2022-12-13 21:55] LABS: Glucose,Whole Blood 196 mg/dL (70-110)
[2022-12-13] MEDS ORDERED: ACETAMINOPHEN IV (For NPO) 1,000 MG in EMPTY BAG 1 BAG IVPB ONE (22:00)
[2022-12-13] MEDS: SODIUM CHLORIDE 0.9% 1,000 ML IV SCH (22:42)
[2022-12-13] MEDS: SIMETHICONE 80 MG CHEWABLE PO SCH (22:43)
[2022-12-13] MEDS: PREGABALIN 75 MG CAP PO SCH (22:44)
[2022-12-13] MEDS: INSULIN ASPART (NovoLOG) 100 UNIT/ML VIAL SQ SCH (22:52)
[2022-12-13] MEDS: NON FORMULARY DRUG (Dextroamphetamine/Amphetamine [Adderall] 20 MG Tablet) PO SCH (23:10)
[2022-12-14] MEDS: KETOROLAC 15 MG/ML 1 ML VIAL IVP SCH ×3 (00:45→12:33)
[2022-12-14] MEDS: METOCLOPRAMIDE 5 MG/ML 2 ML VIAL IVP SCH ×3 (00:45→12:34)
[2022-12-14] MEDS: ONDANSETRON 4 MG/2 ML VIAL IVP SCH ×3 (00:45→12:34)
[2022-12-14 05:32] LABS: Glucose,Whole Blood 198 mg/dL (70-110)
[2022-12-14] MEDS: INSULIN ASPART (NovoLOG) 100 UNIT/ML VIAL SQ SCH ×3 (06:38→16:54)
[2022-12-14] MEDS ORDERED: DAPAGLIFLOZIN PROPANEDIOL 10 MG TABLET PO SCH (09:00)
[2022-12-14] MEDS ORDERED: LINAGLIPTIN 5 MG TABLET PO SCH (09:00)
[2022-12-14] MEDS ORDERED: ENOXAPARIN 30 MG/0.3 ML SYRINGE SQ SCH (09:00)
[2022-12-14] MEDS: PREGABALIN 75 MG CAP PO SCH (09:37)
[2022-12-14] MEDS: NON FORMULARY DRUG (Dextroamphetamine/Amphetamine [Adderall] 20 MG Tablet) PO SCH (09:38)
[2022-12-14] MEDS: SIMETHICONE 80 MG CHEWABLE PO SCH ×2 (09:38→15:38)
[2022-12-14 10:26] LABS: Glucose,Whole Blood 191 mg/dL (70-110)
[2022-12-14] MEDS ORDERED: SODIUM CHLORIDE 0.9% 500 ML 500 ML IV ONE (10:34)
[2022-12-14] MEDS ORDERED: SODIUM CHLORIDE 0.9% 1,000 ML IV ONE ×2 (11:05→14:49)
--- NOTE | 2022-12-14 11:05 | P.PN ---
Subjective Progress Note Date: 12/14/22 CHIEF COMPLAINT: Gastroesophageal reflux disease with hiatal hernia HISTORY OF PRESENT ILLNESS: The patient is a 57-year-old male who presents with severe gastroesophageal reflux disease with incarcerated hiatal hernia. He status post repair and reduction of incarcerated hiatal hernia. He is resting comfortably. No new issues overnight. ROS: No reports of nausea and vomiting. No bowel movements. No fevers or chills. No new chest pain. No productive sputum PHYSICAL EXAM: VITAL SIGNS: Reviewed CONSTITUTIONAL: Well developed and in no acute distress. EYES: Conjuctivae without sclera icterus. Extraocular movements grossly intact. HEAD, EARS, NOSE, THROAT: Moist buccal mucosa. Head is atraumatic, normocephalic. Hears conversational speech. No nasal drainage. RESPIRATORY: Non-labored respirations and equal bilateral excursions. CARDIOVASCULAR: Palpable 2+ radial pulses. Hypotensive ABDOMEN: Dressings intact. MUSCULOSKELETAL: No gross deformity of the lower extremities noted. No clubbing. No cyanosis. SKIN: Good skin turgor. Well perfused. NEUROLOGIC: Cranial nerves II through XII grossly intact. No focal or lateralizing signs. PSYCH: Appropriate affect. Alert and oriented to person, place and time. CLINICAL LABS: Reviewed. Blood sugar glucose elevated 150 ASSESSMENT: 1. Gastroesophageal reflux disease with hiatal hernia status post repair 2. Hypotension, new 3. Diabetes type 2, uncontrolled 4. Hyperglycemia 5. Morbid obesity due to excess calories, BMI 36.5 6. Former tobacco abuse disorder PLAN: 1. Patient has new hypotension of unclear etiology. IV fluid bolus advised. 2. Inpatient hospitalization due to hypotension and hyperglycemia 3. Esophagram pending 4. Discharge pending correction of hypotension including tolerating diet Objective - Vital Signs Vital signs: Vital Signs Temp 97.7 F 12/14/22 07:10 Pulse 80 12/14/22 09:37 Resp 12 12/14/22 09:37 BP 95/60 12/14/22 09:35 Pulse Ox 95 12/14/22 08:00 FiO2 Intake & Output 12/13/22 12/14/22 12/14/22 18:59 06:59 18:59 Intake Total 1450 500 Output Total 5 950 500 Balance 1445 -450 -500 Weight 105.6 kg 105.6 kg Intake: IV 1450 Oral 500 Output: Urine 950 500 Estimated Blood Loss 5 Other: # Voids 1 - Labs CBC & Chem 7: 12/13/22 14:10 12/13/22 14:10 Labs: Abnormal Lab Results - Last 24 Hours (Table) 12/13/22 12/13/22 12/13/22 Range/Units 14:06 14:10 21:54 Sodium 135 L (137-145) mmol/L BUN 23 H (9-20) mg/dL Glucose 170 H (74-99) mg/dL POC Glucose (mg/dL) 172 H 196 H (70-110) mg/dL Alkaline Phosphatase 134 H (38-126) U/L 12/14/22 12/14/22 Range/Units 05:30 10:24 Sodium (137-145) mmol/L BUN (9-20) mg/dL Glucose (74-99) mg/dL POC Glucose (mg/dL) 198 H 191 H (70-110) mg/dL Alkaline Phosphatase (38-126) U/L
[2022-12-14 11:12] LABS: African American GFR (CKD) 85 (>60 ml/min/1.73 sqM); Anion Gap 8 mmol/L; Blood Urea Nitrogen 27 mg/dL (9-20); Calcium 8.1 mg/dL (8.4-10.2); Carbon Dioxide 25 mmol/L (22-30); Chloride 98 mmol/L (98-107); Glucose 162 mg/dL (74-99); Non-African American GFR(CKD) 73 (>60 ml/min/1.73 sqM); Potassium 4.4 mmol/L (3.5-5.1); Sodium 131 mmol/L (137-145)
[2022-12-14] MEDS ORDERED: SODIUM CHLORIDE 0.9% 1,000 ML IV SCH (11:15)
[2022-12-14 12:25] LABS: Glucose,Whole Blood 184 mg/dL (70-110)
[2022-12-14] MEDS: SODIUM CHLORIDE 0.9% 1,000 ML IV SCH (12:34)
[2022-12-14] MEDS: LACTATED RINGERS 1,000 ML IV SCH (12:35)
[2022-12-14 13:49] VITALS: BMI 36.4
--- NOTE | 2022-12-14 13:49 | FL ---
EXAMINATION TYPE: FL esophagus cervic/pharynx DATE OF EXAM: 12/14/2022 COMPARISON: None HISTORY: Hiatal hernia repair TECHNIQUE: Single contrast technique with water soluble contrast performed with attention of the robert roesophageal junction. FINDINGS: Fluoroscopy time: 27 seconds. D AP: 4565.71. Images: 112 Gastroesophageal junction opens to a normal caliber and has normal contour. Some mild presbyesophagus is present within the distal esophagus with secondary and tertiary contractions. No persistent steno sis is evident. No extravasation of contrast is evident. IMPRESSION: 1. Mild presbyesophagus. 2. No extravasation of contrast
--- NOTE | 2022-12-14 13:55 | P.CONS ---
History of Present Illness - Reason for Consult Consult date: 12/14/22 - History of Present Illness This is a 57 year old male with medical history of diabetes, gastroesophageal acid reflux, hypertension, hyperlipidemia, arthritis, kidney stones, former smoker, bipolar disorder. Patient follows with Dr. Hamilton in the primary care setting. Patient admitted to the hospital and scheduled to undergo elective repair of hiatal hernia. Patient is postoperative day #1 laproscopic reduction and repeair of incarcerated paraesophageal hiatal hernia and reduction of incarcerated mediastinal tumor/lipoma. Patient found to have gastroparesis with moderate retained food during procedure. Patient is evaluated postoperative on the medical floor with no acute complaints was having issues with low blood pressure which prompted this consultation. Patient received HS dose of lisinopril prior to surgery and is currently receiving normal saline at 75 mls/hr and did receive and additional fluid bolus. Echocardiogram from 2020 reveals an EF of 45% which patient denies any past history of heart failure. Currently having hypoactive bowel sounds. REVIEW OF SYSTEMS: CONSTITUTIONAL: No fever, no malaise, no fatigue. HEENT: No recent visual problems or hearing problems. Denied any sore throat. CARDIOVASCULAR: No chest pain, orthopnea, PND, no palpitations, no syncope. PULMONARY: No shortness of breath, no cough, no hemoptysis. GASTROINTESTINAL: No diarrhea, no nausea, no vomiting, no abdominal pain. NEUROLOGICAL: No headaches, no weakness, no numbness. HEMATOLOGICAL: Denies any bleeding or petechiae. GENITOURINARY: Denies any burning micturition, frequency, or urgency. MUSCULOSKELETAL/RHEUMATOLOGICAL: Denies any joint pain, swelling, or any muscle pain. ENDOCRINE: Denies any polyuria or polydipsia. The rest of the 14-point review of systems is negative. PHYSICAL EXAMINATION: GENERAL: The patient is alert and oriented x3, not in any acute distress. Well developed, well nourished. HEENT: Pupils are round and equally reacting to light. EOMI. No scleral icterus. No conjunctival pallor. Normocephalic, atraumatic. No pharyngeal erythema. No thyromegaly. CARDIOVASCULAR: S1 and S2 present. No murmurs, rubs, or gallops. PULMONARY: Chest is clear to auscultation, no wheezing or crackles. ABDOMEN: Soft, nontender, distended, hypotensive bowel sounds. No palpable organomegaly. MUSCULOSKELETAL: No joint swelling or deformity. EXTREMITIES: No cyanosis, clubbing, or pedal edema. NEUROLOGICAL: Gross neurological examination did not reveal any focal deficits. SKIN: No rashes. Assessment and Plan -Hypotension postoperatively likely due to combination of anesthesia and lisinopril and patient is being hydrated and received fluid bolus lisinopril has been discontinued. Patient is asymptomatic and will be monitored. -Hiatal hernia postoperative day #1 laproscopic repair -Hyponatremia, hypovolemic -GERD -History of hypertension -Diabetes mellitus type 2 with hyperglycemia A1C 8.1. -Diabetic nephropathy -Obstructive sleep apnea -Morbid obesity -Former smoker -Anxiety/Bipolar -Hx of pulmonary embolism GI prophylaxis DVT prophylaxis as per primary Full Code Plan Continue IV fluids and fluid bolus given monitor blood pressure Recommend to hold lisinopril at this time Continue accuchecks ACHS with sliding scale insulin patient continued on home medications. Follow up chest xray for the hypoxia Repeat labs in the AM Continue incentive spirometer 10 x an hour while awake The impression and plan of care has been dictated by Chanelle Mcgrath, Nurse Practitioner as directed. Dr. Chelle MD I have performed a history and physical examination and medical decision making of this patient, discussed the same with the dictator, and agree with the dictators assessment and plan as written, documented as a scribe. Based on total visit time, I have performed more than 50% of this visit. Past Medical History Past Medical History: Diabetes Mellitus, GERD/Reflux, Hearing Disorder / Deaf ness, Hyperlipidemia, Hypertension, Osteoarthritis (OA), Skin Disorder Additional Past Medical History / Comment(s): Hx KIDNEY STONES,rt ear hearing loss, carpal tunnel both hands, 2 blood clots in lungs 2020 post covid and surgery. psoriasis, pain rt foot some swelling to foot History of Any Multi-Drug Resistant Organisms: None Reported Past Surgical History: Orthopedic Surgery, Tonsillectomy Additional Past Surgical History / Comment(s): Nerve stimulator back, foot and ankle surgery right side, colonoscopy Past Anesthesia/Blood Transfusion Reactions: No Reported Reaction Past Psychological History: ADD/ADHD, Bipolar Smoking Status: Former smoker Past Alcohol Use History: Rare Additional Past Alcohol Use History / Comment(s): STARTED SMOKING AT AGE 16 QUIT AT AGE 26 SMOKED 1/2 PPD Past Drug Use History: None Reported - Past Family History Mother Family Medical History: Cancer Additional Family Medical History / Comment(s): Pancreatic Father Family Medical History: Cancer Additional Family Medical History / Comment(s): LUNG CANCER Medications and Allergies Home Medications Medication Instructions Recorded Confirmed Type RX: Enalapril [Vasotec] 10 mg PO HS 11/17/14 12/13/22 History RX: FLUoxetine HCL 40 mg PO HS 06/26/20 12/13/22 History RX: Rosuvastatin [Crestor] 10 mg PO HS 06/26/20 12/13/22 History RX: Ibuprofen [Motrin] 800 mg PO Q8H PRN 11/21/20 12/13/22 History RX: Pregabalin 75 mg PO BID 02/06/22 12/13/22 History RX: metFORMIN HCL 500 mg PO HS 02/06/22 12/13/22 History RX: Empagliflozin/Linagliptin 1 tab PO QAM 07/24/22 12/13/22 History [Glyxambi 25 mg-5 mg Tablet] RX: OLANZapine 15 mg PO HS 07/24/22 12/13/22 History RX: Pantoprazole [Protonix] 20 mg PO HS 07/24/22 12/13/22 History RX: traMADol HCL 50 - 100 mg PO TID PRN 07/24/22 12/13/22 History Dextroamphetamine/Amphetamine 20 mg PO BID 12/07/22 12/13/22 History [Adderall] Multivitamin/Iron/Folic Acid 1 each PO HS 12/07/22 12/13/22 History [Centrum Adults Tablet] Semaglutide [Rybelsus] 14 mg PO HS 12/07/22 12/13/22 History Allergies Allergy/AdvReac Type Severity Reaction Status Date / Time codeine Allergy Swelling Verified 12/13/22 13:42 Physical Exam Vitals: Vital Signs Temp Pulse Pulse Resp BP Pulse Ox 12/14/22 09:37 79 80 12 12/14/22 09:35 95/60 12/14/22 09:26 80 91/59 12/14/22 08:00 95 12/14/22 07:10 97.7 F 79 12 83/49 95 12/14/22 00:45 98.3 F 96 18 105/69 95 12/13/22 23:00 87 112/67 92 L 12/13/22 22:45 88 117/73 91 L 12/13/22 22:30 96 118/76 94 L 12/13/22 22:15 110 H 146/96 92 L 12/13/22 22:00 90 122/77 94 L 12/13/22 21:45 90 112/74 93 L 12/13/22 21:30 93 127/81 92 L 12/13/22 21:15 98.0 F 95 18 133/77 93 L 12/13/22 20:50 89 126/72 95 12/13/22 20:30 92 16 123/74 95 12/13/22 20:15 89 16 137/68 95 12/13/22 20:00 89 16 95 12/13/22 19:45 93 16 139/74 94 L 12/13/22 19:30 89 16 138/67 94 L 12/13/22 19:15 84 16 148/73 97 12/13/22 19:00 84 16 94 L 12/13/22 18:45 88 16 97 12/13/22 13:47 97.9 F 97 18 166/80 95 Intake and Output 12/13/22 12/14/22 12/14/22 22:59 06:59 14:59 Intake Total 1750 Output Total 5 950 500 Balance 1745 -950 -500 Intake: IV 1250 Oral 500 Output: Urine 950 500 Estimated Blood Loss 5 Other: # Voids 1 Weight 105.6 kg Results CBC & Chem 7: 12/13/22 14:10 12/14/22 10:44 Labs: Abnormal Lab Results - Last 24 Hours (Table) 12/13/22 12/13/22 12/13/22 Range/Units 14:06 14:10 14:10 Sodium 135 L (137-145) mmol/L BUN 23 H (9-20) mg/dL Glucose 170 H (74-99) mg/dL POC Glucose (mg/dL) 172 H (70-110) mg/dL Hemoglobin A1c 8.1 H (<=6.0) % Calcium (8.4-10.2) mg/dL Alkaline Phosphatase 134 H (38-126) U/L 12/13/22 12/14/22 12/14/22 Range/Units 21:54 05:30 10:24 Sodium (137-145) mmol/L BUN (9-20) mg/dL Glucose (74-99) mg/dL POC Glucose (mg/dL) 196 H 198 H 191 H (70-110) mg/dL Hemoglobin A1c (<=6.0) % Calcium (8.4-10.2) mg/dL Alkaline Phosphatase (38-126) U/L 12/14/22 12/14/22 Range/Units 10:44 12:24 Sodium 131 L (137-145) mmol/L BUN 27 H (9-20) mg/dL Glucose 162 H (74-99) mg/dL POC Glucose (mg/dL) 184 H (70-110) mg/dL Hemoglobin A1c (<=6.0) % Calcium 8.1 L (8.4-10.2) mg/dL Alkaline Phosphatase (38-126) U/L Assessment and Plan Time with Patient: Less than 30
[2022-12-14 14:34] VITALS: PULSE 78; RESP 20; TEMP 97.8
[2022-12-14 14:51] LABS: Amphetamine Screen,Urine Not Detected (NotDetected); Barbiturate Screen,Urine Not Detected (NotDetected); Benzodiazepines Screen,Urine Not Detected (NotDetected); Cocaine Screen,Urine Not Detected (NotDetected); Methadone Screen, Urine Not Detected (NotDetected); Opiate Screen,Urine Not Detected (NotDetected); Oxycodone Screen, Urine Not Detected (NotDetected); Phencyclidine Screen,Urine Not Detected (NotDetected); Tricyclic Antidepressant,Urine Not Detected (NotDetected); Urn Cannabinoid Scrn Not Detected (NotDetected)
[2022-12-14 16:34] LABS: Glucose,Whole Blood 121 mg/dL (70-110)
[2022-12-14 16:54] VITALS: BP 102/78
--- NOTE | 2022-12-14 16:55 | XR ---
EXAMINATION TYPE: XR chest 2V DATE OF EXAM: 12/14/2022 2:55 PM COMPARISON: Chest radiographs from 03/03/2021, CTA chest 03/03/2021. TECHNIQUE: XR chest 2V Frontal and lateral views of the chest. CLINICAL INDICATION:Male, 57 years old with history of hypoxia; FINDINGS: Lungs/Pleura: There is no evidence of pleural effusion, focal consolidation, or pneumothorax. Chroni c senescent parenchymal change. Pulmonary vascularity: Unremarkable. Heart/mediastinum: Cardiomediastinal silhouette is unremarkable. Musculoskeletal: No acute osseous pathology. Other findings: Spinal stimulator leads identified. IMPRESSION: No acute cardiopulmonary disease/process. No significant change from prior exam.
[2022-12-14] MEDS ORDERED: INSULIN ASPART (NovoLOG) 100 UNIT/ML VIAL SQ SCH (17:30)
--- NOTE | 2022-12-17 10:25 | P.DS ---
Providers Date of admission: 12/13/22 19:28 Expected date of discharge: 12/14/22 Attending physician: Sisi Coy Consults: 12/14/22 10:28 Consult Physician Routine Consulting Provider: Arturo Hamilton Consult Reason/Comments: medical management Do you want consulting provider notified?: Yes Primary care physician: Arturo Hamilton Hospital Course: POSTOPERATIVE DIAGNOSES: 1. Paraesophageal midline diaphragmatic hernia, 3 cm, without incarceration. 2. Gastroesophageal reflux disease with esophageal dysmotility 3. Hypertensive heart disease 4. Generalized anxiety disorder 5. Morbid obesity due to excess calories, BMI 36.5 6. Diabetes type 2, [id number] 7. Diabetes type 2 with nephropathy 8. Diabetes type 2 with neuropathy 9. Hyperlipidemia 10. Attention deficit disorder 11. Depressive disorder 12. Obstructive sleep apnea 13. Psoriasis 14. Chronic pain syndrome 15. Bipolar disorder 16. Former tobacco abuse disorder 17. Gastroparesis 18. Hepatomegaly with fatty liver disease 19. Mediastinal subcutaneous tumor COURSE: The patient is a 57-year-old male who came in with symptomatic reflux disease and hiatal hernia. He underwent hiatal hernia repair without sequelae. Esophagram demonstrated no leak or obstruction. She is tolerating liquids. He did have transient hypotension however asymptomatic. Prior to discharge, blood pressure had improved systolic over 100 from 90s. Discharge diet was reviewed. Strict tobacco cessation and counseling were addressed including dietary restrictions. Lifting restrictions of 4 pounds for 4 weeks also reviewed. Procedures: OPERATION: 1. Robotic-assisted da Rahul Xi laparoscopic reduction and repair of incarcerated paraesophageal hiatal hernia, 4 x 4 cm, with [place] Biopatch A 8 x 8 cm. 2. Intraoperative esophagogastroduodenoscopy 3. Placement of 57-[place] bougie ANESTHESIA: General with local anesthetic. ESTIMATED BLOOD LOSS: 5 mL SPECIMENS REMOVED: None COMPLICATIONS: None. Condition: stable Disposition: floor FINDINGS: 1. Midline incarcerated paraesophageal hiatal hernia 4 x 4 cm 2. Intraoperative upper endoscopy confirms complete closure of hiatal hernia from Hill grade 4 to Hill grade 1 3. Intraesophageal length over 2 cm 4. 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 Moderate hepatomegaly due to fatty liver disease 6. Gastroparesis with moderate retained food. Patient reports eating over 18- 20 hours prior to his procedure Patient Condition at Discharge: Stable Plan - Discharge Summary Discharge Rx Participant: Yes New Discharge Prescriptions: New Simethicone [Gas-X] 125 mg PO AC-TID PRN #20 capsule PRN Reason: Pain Acetaminophen Tab [Tylenol Tab] 1,000 mg PO Q6HR PRN #30 tablet PRN Reason: Pain Continue Rosuvastatin [Crestor] 10 mg PO HS FLUoxetine HCL 40 mg PO HS Ibuprofen [Motrin] 800 mg PO Q8H PRN PRN Reason: Pain Pantoprazole [Protonix] 20 mg PO HS OLANZapine 15 mg PO HS Empagliflozin/Linagliptin [Glyxambi 25 mg-5 mg Tablet] 1 tab PO QAM Multivitamin/Iron/Folic Acid [Centrum Adults Tablet] 1 each PO HS Dextroamphetamine/Amphetamine [Adderall] 20 mg PO BID metFORMIN HCL 500 mg PO HS Pregabalin 75 mg PO BID traMADol HCL 50 - 100 mg PO TID PRN PRN Reason: Pain Semaglutide [Rybelsus] 14 mg PO HS Discontinued Enalapril [Vasotec] 10 mg PO HS Discharge Medication List FLUoxetine HCL 40 mg PO HS 06/26/20 [History] Rosuvastatin [Crestor] 10 mg PO HS 06/26/20 [History] Ibuprofen [Motrin] 800 mg PO Q8H PRN 11/21/20 [History] Pregabalin 75 mg PO BID 02/06/22 [History] metFORMIN HCL 500 mg PO HS 02/06/22 [History] Empagliflozin/Linagliptin [Glyxambi 25 mg-5 mg Tablet] 1 tab PO QAM 07/24/22 [History] OLANZapine 15 mg PO HS 07/24/22 [History] Pantoprazole [Protonix] 20 mg PO HS 07/24/22 [History] traMADol HCL 50 - 100 mg PO TID PRN 07/24/22 [History] Dextroamphetamine/Amphetamine [Adderall] 20 mg PO BID 12/07/22 [History] Multivitamin/Iron/Folic Acid [Centrum Adults Tablet] 1 each PO HS 12/07/22 [History] Semaglutide [Rybelsus] 14 mg PO HS 12/07/22 [History] Acetaminophen Tab [Tylenol Tab] 1,000 mg PO Q6HR PRN #30 tablet 12/14/22 [Rx] Simethicone [Gas-X] 125 mg PO AC-TID PRN #20 capsule 12/14/22 [Rx] Follow up Appointment(s)/Referral(s): Sisi Coy MD [STAFF PHYSICIAN] - 12/18/22 Patient Instructions/Handouts: *Surgery [facility] - Managing Your Pain After Surgery Without Opioids, Laparoscopic Hiatal Hernia Repair (DC) Activity/Diet/Wound Care/Special Instructions: TELEHEALTH - DR WILL CALL YOU BETWEEN 8 am to 8 pm Liquid diet only for 2 weeks until December 27 No lifting over 4 pounds in 4 weeks, January 13October shower No soaking in bath tubs for 2 weeks, December 27 Please notify your surgeon if you develop nausea and vomiting including new onset of abdominal pain. Please ambulate at all times. Use Simethicone, Gas-X, Tylenol and ibuprofen or Aleve scheduled for the next 24-48 hours for best pain relief. Use ice along incisions for the today to prevent swelling. Please open, cut, crush pills larger than the size of a tic tack No carbonated beverages. No straws. Do not remove scopolamine patch for 3 days, if present Avoiding Gas Avoid drinking through a straw. Do not chew gum or tobacco. These actions cause you to swallow air, which produces excess gas in your stomach. Chew with your mouth closed. Avoid any foods that cause stomach gas and distention. These foods include corn, dried beans, peas, lentils, onions, broccoli, cauliflower and any food from the cabbage family. Avoid carbonated drinks, alcohol, citrus and tomato products. Carbonated drinks (sodas) are not allowed for the first six to eight weeks after surgery. After this time you can try them again in small amounts Clear Liquid Diet The first diet after surgery is the clear liquid diet. It includes the following liquids: Apple juice Cranberry juice Grape juice Chicken broth Beef broth Flavored gelatin (Jell-O) Decaf tea and coffee Caffeinated beverages are permitted based on tolerance [facility] ice Full Liquid Diet The full liquid diet contains anything on the clear liquid diet, plus: Milk, soy, rice and almond (no chocolate) Cream of wheat, cream of rice, grits Strained creamed soups (no tomato or broccoli) Vanilla and strawberry-flavored ice cream Sherbet Blended, custard styled or whipped yogurt (plain or vanilla only) Vanilla and butterscotch pudding (no chocolate or coconut) Nutritional drinks including Ensure, Boost, [place] Instant Breakfast (no chocolate-flavored) Note: Dairy products, such as milk, ice cream and pudding, may cause diarrhea in some people just after surgery. You may need to avoid milk products. If so, substitute them with lactose-free beverages, such as soy, rice, Lactaid or almond milks. Discharge Disposition: HOME SELF-CARE
== END 2022-12-14 19:30 | disposition home or self-care (01) | DRG 327 ==
LOC: OR 13:27 → 4SSUR 18:31 → OR 19:28 → 4SSUR 19:28
PROVIDERS: ADMIT Surgery Plastic and Reconstructive Surgery; ATTEND Surgery Plastic and Reconstructive Surgery
PROC: 8E0W4CZ Robotic Assisted Procedure of Trunk Region, Percutaneous Endoscopic Approach (ICD-10-PCS; 2022-12-13)
PROC: 0BUT4JZ Supplement Diaphragm with Synthetic Substitute, Percutaneous Endoscopic Approach (ICD-10-PCS; principal; 2022-12-13 15:10)
DX: K44.0 Diaphragmatic hernia with obstruction, without gangrene (principal); E87.1 Hypo-osmolality and hyponatremia; K21.9 Gastro-esophageal reflux disease without esophagitis; E66.01 Morbid (severe) obesity due to excess calories; H91.91 Unspecified hearing loss, right ear; F98.8 Other specified behavioral and emotional disorders with onset usually occurring in childhood and adolescence; E86.1 Hypovolemia; E11.65 Type 2 diabetes mellitus with hyperglycemia; G47.33 Obstructive sleep apnea (adult) (pediatric); G89.4 Chronic pain syndrome; F41.1 Generalized anxiety disorder; F31.9 Bipolar disorder, unspecified; E78.5 Hyperlipidemia, unspecified; E11.43 Type 2 diabetes mellitus with diabetic autonomic (poly)neuropathy; E11.21 Type 2 diabetes mellitus with diabetic nephropathy; I11.9 Hypertensive heart disease without heart failure; K22.4 Dyskinesia of esophagus; K31.84 Gastroparesis; K76.0 Fatty (change of) liver, not elsewhere classified; L40.9 Psoriasis, unspecified; D17.9 Benign lipomatous neoplasm, unspecified; Z87.891 Personal history of nicotine dependence; Z80.1 Family history of malignant neoplasm of trachea, bronchus and lung; Z88.5 Allergy status to narcotic agent; Z79.84 Long term (current) use of oral hypoglycemic drugs; Z79.899 Other long term (current) drug therapy; Z68.36 Body mass index [BMI] 36.0-36.9, adult; Z86.711 Personal history of pulmonary embolism; Z87.442 Personal history of urinary calculi
CPT/HCPCS: 71046; 74210; 80048; 80053; 80306; 80307; 83036; 83880; 85025; 94760

== ENCOUNTER 2023-02-08 10:55 | Emergency (ER) | payer MEDICARE, OTHER ==
[2023-02-08 10:59] VITALS: TEMP 98.3
[2023-02-08] MEDS ORDERED: SODIUM CHLORIDE 0.9% 1,000 ML IV STA (12:06)
[2023-02-08] MEDS ORDERED: KETOROLAC 15 MG/ML 1 ML VIAL IVP STA (12:06)
[2023-02-08] MEDS ORDERED: ONDANSETRON 4 MG/2 ML VIAL IVP STA (12:06)
--- NOTE | 2023-02-08 12:25 | ED ---
Abdominal Pain HPI - General Chief Complaint: Abdominal Pain Stated Complaint: vomiting Time Seen by Provider: 02/08/23 11:52 Source: patient, RN notes reviewed Mode of arrival: ambulatory Limitations: no limitations - History of Present Illness Initial Comments: This is a 57-year-old male who presents to the emergency department for nausea, vomiting, and abdominal pain. States that the symptoms started 3 days ago. States that the pain is in the right lower quadrant. Denies any changes in bowel or bladder habits. Also denies any history of similar symptoms in the past. He feels like he may have had fevers, but has not measured his temperature. Denies any sore throat, cough, dyspnea, chest pain, palpitations, diarrhea, back pain, or headaches. MD Complaint: abdominal pain Onset/Timin -: days(s) Location: RLQ - Related Data Home Medications Medication Instructions Recorded Confirmed FLUoxetine HCL 40 mg PO HS 06/26/20 12/13/22 Rosuvastatin [Crestor] 10 mg PO HS 06/26/20 12/13/22 Ibuprofen [Motrin] 800 mg PO Q8H PRN 11/21/20 12/13/22 Pregabalin 75 mg PO BID 02/06/22 12/13/22 metFORMIN HCL 500 mg PO HS 02/06/22 12/13/22 Empagliflozin/Linagliptin 1 tab PO QAM 07/24/22 12/13/22 [Glyxambi 25 mg-5 mg Tablet] OLANZapine 15 mg PO HS 07/24/22 12/13/22 Pantoprazole [Protonix] 20 mg PO HS 07/24/22 12/13/22 traMADol HCL 50 - 100 mg PO TID PRN 07/24/22 12/13/22 Dextroamphetamine/Amphetamine 20 mg PO BID 12/07/22 12/13/22 [Adderall] Multivitamin/Iron/Folic Acid 1 each PO HS 12/07/22 12/13/22 [Centrum Adults Tablet] Semaglutide [Rybelsus] 14 mg PO HS 12/07/22 12/13/22 Previous Rx's Medication Instructions Recorded Acetaminophen Tab [Tylenol Tab] 1,000 mg PO Q6HR PRN #30 tablet 12/14/22 Simethicone [Gas-X] 125 mg PO AC-TID PRN #20 capsule 12/14/22 Famotidine 20 mg PO DAILY 14 Days #14 tablet 02/08/23 Ondansetron Odt [Zofran Odt] 4 mg PO Q8HR PRN #20 tab 02/08/23 Allergies Allergy/AdvReac Type Severity Reaction Status Date / Time codeine Allergy Swelling Verified 02/08/23 10:58 Review of Systems ROS Statement: Those systems with pertinent positive or pertinent negative responses have been documented in the HPI. ROS Other: All systems not noted in ROS Statement are negative. Past Medical History Past Medical History: Diabetes Mellitus, GERD/Reflux, Hearing Disorder / Deafness, Hyperlipidemia, Hypertension, Osteoarthritis (OA), Skin Disorder Additional Past Medical History / Comment(s): Hx KIDNEY STONES,rt ear hearing loss, carpal tunnel both hands, 2 blood clots in lungs 2020 post covid and surgery. psoriasis, pain rt foot some swelling to foot History of Any Multi-Drug Resistant Organisms: None Reported Past Surgical History: Orthopedic Surgery, Tonsillectomy Additional Past Surgical History / Comment(s): Nerve stimulator back, foot and ankle surgery right side, colonoscopy Past Anesthesia/Blood Transfusion Reactions: No Reported Reaction Past Psychological History: ADD/ADHD, Bipolar Smoking Status: Former smoker Past Alcohol Use History: Rare Past Drug Use History: None Reported - Past Family History Mother Family Medical History: Cancer Additional Family Medical History / Comment(s): Pancreatic Father Family Medical History: Cancer Additional Family Medical History / Comment(s): LUNG CANCER General Exam Limitations: no limitations General appearance: alert, in no apparent distress Head exam: Present: atraumatic, normocephalic, normal inspection Respiratory exam: Present: normal lung sounds bilaterally. Absent: respiratory distress, wheezes, rales, rhonchi, stridor Cardiovascular Exam: Present: regular rate, normal rhythm, normal heart sounds. Absent: systolic murmur, diastolic murmur, rubs, gallop, clicks GI/Abdominal exam: Present: soft, tenderness (RLQ), normal bowel sounds. Absent: distended Neurological exam: Present: alert, oriented X3, CN II-XII intact Psychiatric exam: Present: normal affect, normal mood Skin exam: Present: warm, dry, intact, normal color. Absent: rash Course Vital Signs 02/08/23 02/08/23 02/08/23 10:57 12:23 14:57 Temperature 98.3 F Pulse Rate 80 65 69 Respiratory 18 18 19 Rate Blood Pressure 144/84 114/70 119/93 O2 Sat by Pulse 99 95 94 L Oximetry Medical Decision Making - Medical Decision Making This is a 57-year-old male who presents to the emergency department for abdominal pain. Was pt. sent in by a medical professional or institution? @ -No Did you speak to anyone other than the patient for history? @ -No Did you review nursing and triage notes? @ -Yes, and I agree, it is accurate with regards to the patient's symptoms. Were old charts reviewed? @ -No Differential Diagnosis? @ -Differential Abdominal Pain Men: Appendicitis, cholecystitis, diverticulosis, ischemic bowel, pancreatitis, hepatitis, UTI, gastroenteritis, AAA, incarcerated hernia, bowel obstruction, constipation, inflammatory bowel, hepatitis, peptic ulcer disease, splenic infarction, perforated viscus, testicular torsion, this is not meant to be an all-inclusive list EKG interpreted by me (3pts min.)? @ -Not obtained X-rays interpreted by me (1pt min.)? @ -Not obtained CT interpreted by me (1pt min.)? @ -Computed tomography scan of the abdomen and pelvis obtained. My interpretation identifies no evidence of bowel wall thickening or free air. U/S interpreted by me (1pt. min.)? @ -Not obtained What testing was considered but not performed? (CT, X-rays, U/S, labs)? Why? @ -None What meds were considered but not given? Why? @ -None Did you discuss the management of the patient with other professionals? @ -No Did you reconcile home meds? @ -No Was smoking cessation discussed for >3mins.? @ -No Was critical care preformed (if so, how long)? @ -No Were there social determinants of health that impacted care today? How? (Homelessness, low income, unemployed, alcoholism, drug addiction, transportation, low edu. Level, literacy, decrease access to med. care, snf, rehab)? @ -No Was there de-escalation of care discussed even if they declined? (Discuss DNR or withdrawal of care, Hospice)? @ -No What co-morbidities impacted this encounter? (DM, HTN, Smoking, COPD, CAD, Cancer, CVA, Hep., AIDS, mental health diagnosis, sleep apnea, morbid obesity)? @ -DM, GERD, morbid obesity Was patient admitted / discharged? @ -Discharged. Lab work obtained and found to be nonactionable. Urinalysis negative for signs of infection. Computed tomography scan of the abdomen and pelvis obtained, however no acute findings to account for the patient's symptoms were identified. His symptoms were well controlled with IV fluids, Zofran, and Toradol. States that while he felt better, his stomach did still feel somewhat upset. Rx for Zofran and famotidine provided with dosing instructions reviewed. Advised to slowly advance his diet as tolerated and remain well-hydrated. He will otherwise follow up with his PCP as scheduled next week. Undiagnosed new problem with uncertain prognosis? @ -None Drug Therapy requiring intensive monitoring for toxicity (Heparin, Nitro, Insulin, Cardizem)? @ -None Were any procedures done? @ -None Diagnosis/symptom? @ -Abdominal pain Acute, or Chronic, or Acute on Chronic? @ -Acute Uncomplicated (without systemic symptoms) or Complicated (systemic symptoms)? @ -Uncomplicated Side effects of treatment? @ -None Exacerbation, Progression, or Severe Exacerbation] @ -Not applicable Poses a threat to life or bodily function? @ -No Return precautions reviewed in depth, the patient is instructed to return to the emergency department with any new, worsening, or concerning symptoms. Patient verbalized understanding. This case was discussed in detail with the attending ED physician, Dr. Michelle. Presentation, findings, and treatment plan discussed in detail as well. - Lab Data Result diagrams: 02/08/23 12:17 02/08/23 12:17 Lab Results 02/08/23 02/08/23 02/08/23 Range/Units 12:17 12:17 12:17 WBC 10.6 (3.8-10.6) k/uL RBC 5.30 (4.30-5.90) m/uL Hgb 16.3 (13.0-17.5) gm/dL Hct 46.3 (39.0-53.0) % MCV 87.5 (80.0-100.0) fL MCH 30.8 (25.0-35.0) pg MCHC 35.2 (31.0-37.0) g/dL RDW 13.2 (11.5-15.5) % Plt Count 257 (150-450) k/uL MPV 7.6 Neutrophils % 72 % Lymphocytes % 21 % Monocytes % 5 % Eosinophils % 0 % Basophils % 1 % Neutrophils # 7.6 (1.3-7.7) k/uL Lymphocytes # 2.2 (1.0-4.8) k/uL Monocytes # 0.6 (0-1.0) k/uL Eosinophils # 0.0 (0-0.7) k/uL Basophils # 0.1 (0-0.2) k/uL Sodium 136 L (137-145) mmol/L Potassium 4.7 (3.5-5.1) mmol/L Chloride 103 (98-107) mmol/L Carbon Dioxide 19 L (22-30) mmol/L Anion Gap 14 mmol/L BUN 20 (9-20) mg/dL Creatinine 0.90 (0.66-1.25) mg/dL Est GFR (CKD-EPI)AfAm >90 (>60 ml/min/1.73 sqM) Est GFR (CKD-EPI)NonAf >90 (>60 ml/min/1.73 sqM) Glucose 153 H (74-99) mg/dL Plasma Lactic Acid Grady 1.2 (0.7-2.0) mmol/L Calcium 9.8 (8.4-10.2) mg/dL Total Bilirubin 0.6 (0.2-1.3) mg/dL AST 19 (17-59) U/L ALT 21 (4-49) U/L Alkaline Phosphatase 115 (38-126) U/L Total Protein 7.4 (6.3-8.2) g/dL Albumin 4.4 (3.5-5.0) g/dL Amylase 55 (30-110) U/L Lipase 151 (23-300) U/L Urine Color Urine Appearance (Clear) Urine pH (5.0-8.0) Ur Specific [place] (1.001-1.035) Urine Protein (Negative) Urine Glucose (UA) (Negative) Urine Ketones (Negative) Urine Blood (Negative) Urine Nitrite (Negative) Urine Bilirubin (Negative) Urine Urobilinogen (<2.0) mg/dL Ur Leukocyte Esterase (Negative) 02/08/23 Range/Units 13:05 WBC (3.8-10.6) k/uL RBC (4.30-5.90) m/uL Hgb (13.0-17.5) gm/dL Hct (39.0-53.0) % MCV (80.0-100.0) fL MCH (25.0-35.0) pg MCHC (31.0-37.0) g/dL RDW (11.5-15.5) % Plt Count (150-450) k/uL MPV Neutrophils % % Lymphocytes % % Monocytes % % Eosinophils % % Basophils % % Neutrophils # (1.3-7.7) k/uL Lymphocytes # (1.0-4.8) k/uL Monocytes # (0-1.0) k/uL Eosinophils # (0-0.7) k/uL Basophils # (0-0.2) k/uL Sodium (137-145) mmol/L Potassium (3.5-5.1) mmol/L Chloride (98-107) mmol/L Carbon Dioxide (22-30) mmol/L Anion Gap mmol/L BUN (9-20) mg/dL Creatinine (0.66-1.25) mg/dL Est GFR (CKD-EPI)AfAm (>60 ml/min/1.73 sqM) Est GFR (CKD-EPI)NonAf (>60 ml/min/1.73 sqM) Glucose (74-99) mg/dL Plasma Lactic Acid [place] (0.7-2.0) mmol/L Calcium (8.4-10.2) mg/dL Total Bilirubin (0.2-1.3) mg/dL AST (17-59) U/L ALT (4-49) U/L Alkaline Phosphatase (38-126) U/L Total Protein (6.3-8.2) g/dL Albumin (3.5-5.0) g/dL Amylase (30-110) U/L Lipase (23-300) U/L Urine Color Light Yellow Urine Appearance Clear (Clear) Urine pH 5.0 (5.0-8.0) Ur Specific [place] 1.025 (1.001-1.035) Urine Protein Negative (Negative) Urine Glucose (UA) 4+ H (Negative) Urine Ketones Negative (Negative) Urine Blood Negative (Negative) Urine Nitrite Negative (Negative) Urine Bilirubin Negative (Negative) Urine Urobilinogen <2.0 (<2.0) mg/dL Ur Leukocyte Esterase Negative (Negative) - Radiology Data Radiology results: report reviewed, image reviewed Disposition Clinical Impression: Abdominal pain Disposition: HOME SELF-CARE Instructions (If sedation given, give patient instructions): Abdominal Pain (ED) Additional Instructions: Return to the emergency department with any new, worsening, or concerning symptoms. Take the famotidine daily for 2 weeks. You can take the Zofran up to every 8 hours as needed for nausea and vomiting. Follow up with your primary care provider as scheduled. Prescriptions: Famotidine 20 mg PO DAILY 14 Days #14 tablet Ondansetron Odt [Zofran Odt] 4 mg PO Q8HR PRN #20 tab PRN Reason: Nausea And Vomiting Is patient prescribed a controlled substance at d/c from ED?: No Referrals: Arturo Hamilton MD [Primary Care Provider] - 1-2 days
[2023-02-08 12:35] LABS: Basophils # (A) 0.1 k/uL (0-0.2); Basophils % (A) 1 %; Eosinophils % (A) 0 %; HCT 46.3 % (39.0-53.0); HGB 16.3 gm/dL (13.0-17.5); Lymphocytes # (A) 2.2 k/uL (1.0-4.8); Lymphocytes % (A) 21 %; MCH 30.8 pg (25.0-35.0); MCHC 35.2 g/dL (31.0-37.0); MCV 87.5 fL (80.0-100.0); Mean Platelet Volume 7.6; Monocytes # (A) 0.6 k/uL (0-1.0); Monocytes % (A) 5 %; Neutrophils # (A) 7.6 k/uL (1.3-7.7); Neutrophils % (A) 72 %; Platelet Count 257 k/uL (150-450); RDW 13.2 % (11.5-15.5); WBC 10.6 k/uL (3.8-10.6)
[2023-02-08 12:47] LABS: ALT 21 U/L (4-49); AST 19 U/L (17-59); African American GFR (CKD) >90 (>60 ml/min/1.73 sqM); Albumin 4.4 g/dL (3.5-5.0); Alkaline Phosphatase 115 U/L (38-126); Amylase 55 U/L (30-110); Anion Gap 14 mmol/L; Blood Urea Nitrogen 20 mg/dL (9-20); Calcium 9.8 mg/dL (8.4-10.2); Carbon Dioxide 19 mmol/L (22-30); Chloride 103 mmol/L (98-107); Glucose 153 mg/dL (74-99); Lipase 151 U/L (23-300); Non-African American GFR(CKD) >90 (>60 ml/min/1.73 sqM); Potassium 4.7 mmol/L (3.5-5.1); Sodium 136 mmol/L (137-145); Total Bilirubin 0.6 mg/dL (0.2-1.3); Total Protein 7.4 g/dL (6.3-8.2)
[2023-02-08 13:12] LABS: Appearance,Urine Clear (Clear); Bilirubin,Urine Negative (Negative); Blood,Urine Negative (Negative); Color,Urine Light Yellow; Glucose,Urine (UA) 4+ (Negative); Ketones,Urine Negative (Negative); Leukocyte Esterase,Urine Negative (Negative); Nitrite,Urine Negative (Negative); Protein,Urine Negative (Negative); Specific Gravity,Urine 1.025 (1.001-1.035); Urobilinogen,Urine <2.0 mg/dL (<2.0)
--- NOTE | 2023-02-08 14:18 | CT ---
EXAMINATION TYPE: CT abdomen pelvis w con DATE OF EXAM: 02/08/2023 COMPARISON: 07/06/2022 HISTORY: RLQ pain and nausea CT DLP: 1813.3 mGycm CONTRAST: CT scan of the abdomen and pelvis is performed without Oral Contrast and with IV Contrast, patient in jected with 100 mL of Isovue 300. FINDINGS: LUNG BASES-: No visible nodule. No infiltrate. LIVER/GB: No calcified gallstones. There is mild hepatic steatosis. No space occupying hepatic les ion. Biliary tree is of normal caliber. PANCREAS: No inflammation. No distinct mass. SPLEEN: No splenic enlargement. No lesion seen. ADRENALS: No nodule. No thickening. KIDNEYS/BLADDER: Nonobstructing calculus mid pole right kidney measuring 4 mm. Nonobstructing calculu s upper pole left kidney measures 1.1 cm. There are couple adjacent smaller calculi noted as well. Ex ophytic cyst upper pole right kidney measures 3.8 cm. No distinct solid lesion is identified at this time. The urinary bladder is not ideally distended however there is evidence of wall thickening which could reflect underlying cystitis. Correlate clinically. BOWEL: Normal appendix. Normal bowel caliber. No inflammation. GENITAL ORGANS: No gross abnormality. LYMPH NODES: No greater than 1cm abdominal or pelvic lymph nodes are appreciated. AORTA: No significant abnormality. OSSEOUS STRUCTURES: No significant abnormality is seen. OTHER: Fat-containing inguinal hernias noted. IMPRESSION: 1. Correlate for urinary bladder cystitis nonspecific type. 2. Nonobstructing nephrolithiasis. 3. Renal cystic changes are stable.
[2023-02-08 14:58] VITALS: BP 119/93; PULSE 69; RESP 19
== END 2023-02-08 14:58 | disposition home or self-care (01) ==
LOC: EC 10:55
DX: R10.31 Right lower quadrant pain (principal); E11.9 Type 2 diabetes mellitus without complications; I10 Essential (primary) hypertension; K21.9 Gastro-esophageal reflux disease without esophagitis; F31.9 Bipolar disorder, unspecified; Z79.84 Long term (current) use of oral hypoglycemic drugs; Z79.899 Other long term (current) drug therapy; Z88.5 Allergy status to narcotic agent; Z87.891 Personal history of nicotine dependence
CPT/HCPCS: 36415; 80053; 82150; 83605; 83690; 85025; 81003; 74177; 99284; 96374; 96375; 96361; J2405; J1885; Q9967

== ENCOUNTER 2024-04-21 13:05 | Emergency (ER) | payer MEDICARE, OTHER ==
--- NOTE | 2024-04-21 13:35 | ED ---
Abdominal Pain HPI - General Source: patient, RN notes reviewed Mode of arrival: ambulatory Limitations: no limitations - History of Present Illness MD Complaint: abdominal pain Onset/Timin -: days(s) Location: RLQ Severity scale (1-10): 8 Quality: sharp Consistency: intermittent Worsens With: eating Associated Symptoms: nausea, vomiting, fever, anorexia <Ang Booker - Last Filed: 04/21/24 13:32> - General Source: patient, RN notes reviewed Mode of arrival: ambulatory Limitations: no limitations - History of Present Illness Complaint: abdominal pain <Mary Kidd - Last Filed: 04/21/24 16:15> - General Chief Complaint: Abdominal Pain Stated Complaint: Abd pain Time Seen by Provider: 04/21/24 13:21 - History of Present Illness Initial Comments: This is a 58-year-old male presenting with right lower quadrant pain x 2 days. Patient endorses intermittent pain described as stabbing (8 out of 10) also endorses fever, nausea/vomiting and decreased appetite. Patient states he still has his appendix. Patient denies [id number] medication use. Denies chills, body aches, chest pain, dyspnea, diarrhea, constipation, urinary symptoms. (Ang Booker) This is a 58-year-old male who presents to the emergency department for abdominal pain. States that it is in the right lower quadrant. Pain started 2 days ago. States that he has not been eating and feels very nauseous. Denies any diarrhea or constipation. Pain does not radiate into the back. Denies any history of similar symptoms in the past. (Mary Kidd) - Related Data Home Medications Medication Instructions Recorded Confirmed FLUoxetine HCL 40 mg PO HS 06/26/20 12/13/22 Rosuvastatin [Crestor] 10 mg PO HS 06/26/20 12/13/22 Ibuprofen [Motrin] 800 mg PO Q8H PRN 11/21/20 12/13/22 Pregabalin 75 mg PO BID 02/06/22 12/13/22 metFORMIN HCL 500 mg PO HS 02/06/22 12/13/22 Empagliflozin/Linagliptin 1 tab PO QAM 07/24/22 12/13/22 [Glyxambi 25 mg-5 mg Tablet] OLANZapine 15 mg PO HS 07/24/22 12/13/22 Pantoprazole [Protonix] 20 mg PO HS 07/24/22 12/13/22 traMADol HCL 50 - 100 mg PO TID PRN 07/24/22 12/13/22 Dextroamphetamine/Amphetamine 20 mg PO BID 12/07/22 12/13/22 [Adderall] Multivitamin/Iron/Folic Acid 1 each PO HS 12/07/22 12/13/22 [Centrum Adults Tablet] Semaglutide [Rybelsus] 14 mg PO HS 12/07/22 12/13/22 Previous Rx's Medication Instructions Recorded Acetaminophen Tab [Tylenol Tab] 1,000 mg PO Q6HR PRN #30 tablet 12/14/22 Simethicone [Gas-X] 125 mg PO AC-TID PRN #20 capsule 12/14/22 Famotidine 20 mg PO DAILY 14 Days #14 tablet 02/08/23 Ondansetron Odt [Zofran Odt] 4 mg PO Q8HR PRN #20 tab 02/08/23 Ketorolac [Toradol] 10 mg PO Q6HR PRN #15 tab 04/21/24 Ondansetron Odt [Zofran Odt] 4 mg PO Q8HR PRN #15 tab 04/21/24 methocarbamoL [Robaxin-750] 1,500 mg PO TID PRN #30 tab 04/21/24 Allergies Allergy/AdvReac Type Severity Reaction Status Date / Time codeine Allergy Swelling Verified 04/21/24 13:42 Review of Systems ROS Other: All systems not noted in ROS Statement are negative. <Ang Booker - Last Filed: 04/21/24 13:32> ROS Other: All systems not noted in ROS Statement are negative. <Mary Kidd - Last Filed: 04/21/24 16:15> ROS Statement: Those systems with pertinent positive or pertinent negative responses have been documented in the HPI. Past Medical History Past Medical History: Diabetes Mellitus, GERD/Reflux, Hearing Disorder / Deafness, Hyperlipidemia, Hypertension, Osteoarthritis (OA), Skin Disorder Additional Past Medical History / Comment(s): Hx KIDNEY STONES,rt ear hearing loss, carpal tunnel both hands, 2 blood clots in lungs 2020 post covid and surgery. psoriasis, pain rt foot some swelling to foot History of Any Multi-Drug Resistant Organisms: None Reported Past Surgical History: Orthopedic Surgery, Tonsillectomy Additional Past Surgical History / Comment(s): Nerve stimulator back, foot and ankle surgery right side, colonoscopy Past Anesthesia/Blood Transfusion Reactions: No Reported Reaction Past Psychological History: ADD/ADHD, Bipolar Smoking Status: Former smoker Past Alcohol Use History: Rare Past Drug Use History: None Reported - Past Family History Mother Family Medical History: Cancer Additional Family Medical History / Comment(s): Pancreatic Father Family Medical History: Cancer Additional Family Medical History / Comment(s): LUNG CANCER <Ang Booker - Last Filed: 04/21/24 13:32> General Exam <Ang Booker - Last Filed: 04/21/24 13:32> Limitations: no limitations General appearance: alert, in no apparent distress Head exam: Present: atraumatic, normocephalic, normal inspection Respiratory exam: Present: normal lung sounds bilaterally. Absent: respiratory distress, wheezes, rales, rhonchi, stridor Cardiovascular Exam: Present: regular rate, normal rhythm, normal heart sounds. Absent: systolic murmur, diastolic murmur, rubs, gallop, clicks GI/Abdominal exam: Present: soft, tenderness (RLQ), normal bowel sounds. Absent: distended Neurological exam: Present: alert, oriented X3, CN II-XII intact Psychiatric exam: Present: normal affect, normal mood Skin exam: Present: warm, dry, intact, normal color. Absent: rash <Mary Kidd - Last Filed: 04/21/24 16:15> - General Exam Comments Initial Comments: Visual Physical Exam Vital signs reviewed General: Well-appearing, nontoxic, no acute distress. Head: Normocephalic, atraumatic Eyes: PERRLA, EOMI ENT: Airway patent Chest: Nonlabored breathing Skin: No visual rash, normal skin tone Neuro: Alert and oriented 3 Musculoskeletal: No gross abnormalities (Ang Booker) Course Vital Signs 04/21/24 04/21/24 13:40 16:04 Temperature 98.3 F Pulse Rate 101 H 81 Respiratory 20 18 Rate Blood Pressure 134/85 133/73 O2 Sat by Pulse 97 97 Oximetry Medical Decision Making <Ang Booker - Last Filed: 04/21/24 13:32> - Lab Data Result diagrams: 04/21/24 14:13 04/21/24 14:13 - Radiology Data Radiology results: report reviewed, image reviewed <Mary Kidd - Last Filed: 04/21/24 16:15> - Medical Decision Making I completed the quick note portion of this chart signed OLIVERIO Cerna (Ang Booker) This is a 58 year old male who presents to the emergency department for abdominal pain. Was pt. sent in by a medical professional or institution? @ -No Did you speak to anyone other than the patient for history? @ -No Did you review nursing and triage notes? @ -Yes, and I agree, it is accurate with regards to the patient's symptoms. Were old charts reviewed? @ -No Differential Diagnosis? @ -Differential Abdominal Pain Men: Appendicitis, cholecystitis, diverticulosis, ischemic bowel, pancreatitis, hepatitis, UTI, gastroenteritis, AAA, incarcerated hernia, bowel obstruction, constipation, inflammatory bowel, hepatitis, peptic ulcer disease, splenic infarction, perforated viscus, testicular torsion, this is not meant to be an all-inclusive list EKG interpreted by me (3pts min.)? @ -Not obtained X-rays interpreted by me (1pt min.)? @ -Not obtained CT interpreted by me (1pt min.)? @ -CT scan of the abdomen and pelvis obtained. My interpretation identifies no dilation of the appendix. U/S interpreted by me (1pt. min.)? @ -Not obtained What testing was considered but not performed? (CT, X-rays, U/S, labs)? Why? @ -None What meds were considered but not given? Why? @ -None Did you discuss the management of the patient with other professionals? @ -No Did you reconcile home meds? @ -No Was smoking cessation discussed for >3mins.? @ -No Was critical care preformed (if so, how long)? @ -No Were there social determinants of health that impacted care today? How? ( Homelessness, low income, unemployed, alcoholism, drug addiction, transportation, low edu. Level, literacy, decrease access to med. care, half-way, rehab)? @ -No Was there de-escalation of care discussed even if they declined? (Discuss DNR or withdrawal of care, Hospice)? @ -No What co-morbidities impacted this encounter? (DM, HTN, Smoking, COPD, CAD, Cancer, CVA, Hep., AIDS, mental health diagnosis, sleep apnea, morbid obesity)? @ -DM Was patient admitted / discharged? @ -Discharged. Lab work demonstrates mild leukocytosis with a white blood cell count of 11.1 and was otherwise unremarkable. Urinalysis negative for signs of infection. CT scan of the abdomen and pelvis reveals no acute process to acco unt for his symptoms. He had some haziness around the bladder that could suggest cystitis, however UA was negative for signs of infection. Pain well- controlled with Toradol and Zofran. Prescription for Toradol, Zofran, and Robaxin provided. Advised follow-up with his PCP for reevaluation. Patient discharged home in stable condition. Case discussed with ED attending Dr. Powers. Return precautions reviewed in depth, the patient is instructed to return to the emergency department with any new, worsening, or concerning symptoms. Patient verbalized understanding. Undiagnosed new problem with uncertain prognosis? @ -None Drug Therapy requiring intensive monitoring for toxicity (Heparin, Nitro, Insulin, Cardizem)? @ -None Were any procedures done? @ -None Diagnosis/symptom? @ -Abdominal pain Acute, or Chronic, or Acute on Chronic? @ -Acute Uncomplicated (without systemic symptoms) or Complicated (systemic symptoms)? @ -Uncomplicated Side effects of treatment? @ -None Exacerbation, Progression, or Severe Exacerbation] @ -Not applicable Poses a threat to life or bodily function? @ -No (Mary Kdid) - Lab Data Lab Results 04/21/24 04/21/24 04/21/24 Range/Units 14:13 14:13 14:13 WBC 11.1 H (3.8-10.6) k/uL RBC 5.80 (4.30-5.90) m/uL Hgb 17.2 (13.0-17.5) gm/dL Hct 51.5 (39.0-53.0) % MCV 88.7 (80.0-100.0) fL MCH 29.7 (25.0-35.0) pg MCHC 33.5 (31.0-37.0) g/dL RDW 12.8 (11.5-15.5) % Plt Count 423 (150-450) k/uL MPV 7.1 Neutrophils % 71 % Lymphocytes % 22 % Monocytes % 4 % Eosinophils % 1 % Basophils % 1 % Neutrophils # 7.9 H (1.3-7.7) k/uL Lymphocytes # 2.4 (1.0-4.8) k/uL Monocytes # 0.5 (0-1.0) k/uL Eosinophils # 0.1 (0-0.7) k/uL Basophils # 0.1 (0-0.2) k/uL Sodium 135 L (137-145) mmol/L Potassium 4.4 (3.5-5.1) mmol/L Chloride 101 (98-107) mmol/L Carbon Dioxide 25 (22-30) mmol/L Anion Gap 9 mmol/L BUN 17 (9-20) mg/dL Creatinine 0.93 (0.66-1.25) mg/dL Est GFR (CKD-EPI)AfAm >90 (>60 ml/min/1.73 sqM) Est GFR (CKD-EPI)NonAf >90 (>60 ml/min/1.73 sqM) Glucose 176 H (74-99) mg/dL Plasma Lactic Acid Grady 1.6 (0.7-2.0) mmol/L Calcium 10.3 H (8.4-10.2) mg/dL Total Bilirubin 0.6 (0.2-1.3) mg/dL AST 27 (17-59) U/L ALT 37 (4-49) U/L Alkaline Phosphatase 62 (38-126) U/L Total Protein 7.7 (6.3-8.2) g/dL Albumin 4.9 (3.5-5.0) g/dL Amylase 48 (30-110) U/L Lipase 153 (23-300) U/L Urine Color Urine Appearance (Clear) Urine pH (5.0-8.0) Ur Specific [place] (1.001-1.035) Urine Protein (Negative) Urine Glucose (UA) (Negative) Urine Ketones (Negative) Urine Blood (Negative) Urine Nitrite (Negative) Urine Bilirubin (Negative) Urine Urobilinogen (<2.0) mg/dL Ur Leukocyte Esterase (Negative) 04/21/24 Range/Units 14:13 WBC (3.8-10.6) k/uL RBC (4.30-5.90) m/uL Hgb (13.0-17.5) gm/dL Hct (39.0-53.0) % MCV (80.0-100.0) fL MCH (25.0-35.0) pg MCHC (31.0-37.0) g/dL RDW (11.5-15.5) % Plt Count (150-450) k/uL MPV Neutrophils % % Lymphocytes % % Monocytes % % Eosinophils % % Basophils % % Neutrophils # (1.3-7.7) k/uL Lymphocytes # (1.0-4.8) k/uL Monocytes # (0-1.0) k/uL Eosinophils # (0-0.7) k/uL Basophils # (0-0.2) k/uL Sodium (137-145) mmol/L Potassium (3.5-5.1) mmol/L Chloride (98-107) mmol/L Carbon Dioxide (22-30) mmol/L Anion Gap mmol/L BUN (9-20) mg/dL Creatinine (0.66-1.25) mg/dL Est GFR (CKD-EPI)AfAm (>60 ml/min/1.73 sqM) Est GFR (CKD-EPI)NonAf (>60 ml/min/1.73 sqM) Glucose (74-99) mg/dL Plasma Lactic Acid [place] (0.7-2.0) mmol/L Calcium (8.4-10.2) mg/dL Total Bilirubin (0.2-1.3) mg/dL AST (17-59) U/L ALT (4-49) U/L Alkaline Phosphatase (38-126) U/L Total Protein (6.3-8.2) g/dL Albumin (3.5-5.0) g/dL Amylase (30-110) U/L Lipase (23-300) U/L Urine Color Light Yellow Urine Appearance Clear (Clear) Urine pH 6.5 (5.0-8.0) Ur Specific [place] 1.015 (1.001-1.035) Urine Protein Negative (Negative) Urine Glucose (UA) 2+ H (Negative) Urine Ketones Negative (Negative) Urine Blood Negative (Negative) Urine Nitrite Negative (Negative) Urine Bilirubin Negative (Negative) Urine Urobilinogen <2.0 (<2.0) mg/dL Ur Leukocyte Esterase Negative (Negative) Disposition <Jhony,Ang - Last Filed: 04/21/24 13:32> Is patient prescribed a controlled substance at d/c from ED?: No Time of Disposition: 15:52 <Mary Kidd - Last Filed: 04/21/24 16:15> Clinical Impression: Abdominal pain Disposition: HOME SELF-CARE Instructions (If sedation given, give patient instructions): Abdominal Pain (ED) Additional Instructions: Return to the emergency department with any new, worsening, or concerning symptoms. Take the Toradol with Tylenol as needed for pain relief. If you choose to take the Toradol, do not take any other anti-inflammatories such as ibuprofen, take one or the other. Take the Robaxin as 1 to 2 tablets up to 3-4 times daily. Take the Zofran up to every 8 hours as needed for nausea and vomiting. Follow up with your primary care provider in 1-2 days. Prescriptions: methocarbamoL [Robaxin-750] 1,500 mg PO TID PRN #30 tab PRN Reason: Pain Ketorolac [Toradol] 10 mg PO Q6HR PRN #15 tab PRN Reason: Pain Ondansetron Odt [Zofran Odt] 4 mg PO Q8HR PRN #15 tab PRN Reason: Nausea And Vomiting Referrals: Arturo Hamilton MD [Primary Care Provider] - 1-2 days
[2024-04-21 13:42] VITALS: TEMP 98.3
[2024-04-21 14:25] LABS: Basophils # (A) 0.1 k/uL (0-0.2); Basophils % (A) 1 %; Eosinophils # (A) 0.1 k/uL (0-0.7); Eosinophils % (A) 1 %; HCT 51.5 % (39.0-53.0); HGB 17.2 gm/dL (13.0-17.5); Lymphocytes # (A) 2.4 k/uL (1.0-4.8); Lymphocytes % (A) 22 %; MCH 29.7 pg (25.0-35.0); MCHC 33.5 g/dL (31.0-37.0); MCV 88.7 fL (80.0-100.0); Mean Platelet Volume 7.1; Monocytes # (A) 0.5 k/uL (0-1.0); Monocytes % (A) 4 %; Neutrophils # (A) 7.9 k/uL (1.3-7.7); Neutrophils % (A) 71 %; Platelet Count 423 k/uL (150-450); RDW 12.8 % (11.5-15.5); WBC 11.1 k/uL (3.8-10.6)
[2024-04-21 14:26] LABS: Appearance,Urine Clear (Clear); Bilirubin,Urine Negative (Negative); Blood,Urine Negative (Negative); Color,Urine Light Yellow; Glucose,Urine (UA) 2+ (Negative); Ketones,Urine Negative (Negative); Leukocyte Esterase,Urine Negative (Negative); Nitrite,Urine Negative (Negative); PH, Urine 6.5 (5.0-8.0); Protein,Urine Negative (Negative); Specific Gravity,Urine 1.015 (1.001-1.035); Urobilinogen,Urine <2.0 mg/dL (<2.0)
[2024-04-21 14:37] LABS: ALT 37 U/L (4-49); AST 27 U/L (17-59); African American GFR (CKD) >90 (>60 ml/min/1.73 sqM); Albumin 4.9 g/dL (3.5-5.0); Alkaline Phosphatase 62 U/L (38-126); Amylase 48 U/L (30-110); Anion Gap 9 mmol/L; Blood Urea Nitrogen 17 mg/dL (9-20); Calcium 10.3 mg/dL (8.4-10.2); Carbon Dioxide 25 mmol/L (22-30); Chloride 101 mmol/L (98-107); Glucose 176 mg/dL (74-99); Lipase 153 U/L (23-300); Non-African American GFR(CKD) >90 (>60 ml/min/1.73 sqM); Potassium 4.4 mmol/L (3.5-5.1); Sodium 135 mmol/L (137-145); Total Bilirubin 0.6 mg/dL (0.2-1.3); Total Protein 7.7 g/dL (6.3-8.2)
[2024-04-21] MEDS: KETOROLAC 15 MG/ML 1 ML VIAL IVP STA (14:42)
[2024-04-21] MEDS: ONDANSETRON 4 MG/2 ML VIAL IVP STA (14:43)
[2024-04-21] MEDS: SODIUM CHLORIDE 0.9% 1,000 ML IV STA (14:43)
--- NOTE | 2024-04-21 15:28 | CT ---
EXAMINATION TYPE: CT abdomen pelvis w con CT DLP: 1921.5 mGycm, Automated exposure control for dose reduction was used. DATE OF EXAM: 04/21/2024 3:18 PM COMPARISON: CT abdomen pelvis most recent from 02/08/2023 CLINICAL INDICATION: Male, 58 years old with history of Right lower quadrant abdominal pain; Right lo wer quadrant abdominal pain TECHNIQUE: Axial CT abdomen pelvis w con;Sagittal and coronal reformats were created on a separate w orkstation. Contrast used:100ml mL of Isovue 300 with IV Contrast, (none if empty) Oral contrast used: without Oral Contrast (none if empty) FINDINGS: LOWER CHEST: Unremarkable ABDOMEN LIVER: Unremarkable GALLBLADDER AND BILE DUCTS: Unremarkable. PANCREAS: Unremarkable. SPLEEN: Unremarkable. ADRENAL GLANDS: Unremarkable. KIDNEYS AND URETERS: Nodule can bilateral renal calculi measuring up to 4 mm on the right and 9 mm on the left.. Right renal cortical cysts. PELVIS BLADDER: Unremarkable REPRODUCTIVE: Unremarkable. ABDOMEN & PELVIS STOMACH AND BOWEL: No evidence of bowel obstruction. Scattered colonic diverticula. The appendix is n ormal. PERITONEUM/RETROPERITONEUM: No evidence of pneumoperitoneum or free fluid. VASCULATURE: No evidence of aortic aneurysm. MUSCULOSKELETAL: No acute osseous abnormalities LYMPH NODES: No gross evidence for lymphadenopathy. SOFT TISSUE/ABDOMINAL WALL: Fat-containing inguinal hernias bilaterally. There are stimulator device with leads terminating in the posterior thecal sac. IMPRESSION: 1. Mild haziness around the urinary bladder correlate with urinalysis for cystitis. 2. Appendix is visualized and within normal limits. No evidence for obstructive uropathy. 3. Bilateral nonobstructing renal calculi. 4. Bilateral fat-containing inguinal hernias. [facility], , 04/21/2024 3:26 PM
[2024-04-21] MEDS: ONDANSETRON 4 MG ODT STARTER PACK 2 TAB BTL PO STA (16:04)
[2024-04-21] MEDS: IBUPROFEN 600 MG STARTER PACK 4 TAB BTL PO STA (16:04)
[2024-04-21 16:05] VITALS: BP 133/73; PULSE 81; RESP 18
== END 2024-04-21 16:08 | disposition home or self-care (01) ==
LOC: EC 13:05
DX: K40.20 Bilateral inguinal hernia, without obstruction or gangrene, not specified as recurrent (principal); N20.0 Calculus of kidney; E11.9 Type 2 diabetes mellitus without complications; Z87.891 Personal history of nicotine dependence; Z79.84 Long term (current) use of oral hypoglycemic drugs; Z90.89 Acquired absence of other organs
CPT/HCPCS: 36415; 80053; 82150; 83605; 83690; 85025; 81003; 74177; 99284; 96374; 96375; 96361; J2405; J1885; S0119; Q9967